=== PATIENT | male | born 1960 | race Caucasian/White ===

== ENCOUNTER 2021-07-20 20:18 | Emergency (ER) | payer OTHER, SELFPAY ==
--- NOTE | ~2021-07-20 | US_ITS ---
EXAMINATION: US SCROTUM CLINICAL INFORMATION: Right-sided pain. COMPARISON: None TECHNIQUE: A sonogram of the scrotum was performed assessing avilez-scale appearance and color Doppler flow. Spectral Doppler analysis of the arterial and venous flow were performed in the testes bilaterally. FINDINGS: RIGHT: Right testicle measures 3.8 x 3.0 x 3.7 cm, volume 21.8 mL. No focal testicular parenchymal lesions are visualized. Spectral Doppler analysis of the arterial and venous flow is increased in the right testis. Right epididymal head is normal in size. Small complicated hydrocele. No varicocele. Right epididymal Doppler flow is increased. LEFT: Left testicle measures 5.0 x 2.5 x 3.1 cm, volume 19.8 mL. No focal testicular parenchymal lesions are visualized. Spectral Doppler analysis of the arterial and venous flow is in the left testis. Left epididymal head is normal in size. Small simple hydrocele. No varicocele. Left epididymal Doppler flow is normal. US/US scrotum doppler IMPRESSION: * No evidence of testicular torsion. * Findings compatible with RIGHT epididymoorchitis. * Small bilateral hydroceles, with complicated appearance on the right.
--- NOTE | ~2021-07-20 | US_ITS ---
EXAMINATION: US SCROTUM CLINICAL INFORMATION: Right-sided pain. COMPARISON: None TECHNIQUE: A sonogram of the scrotum was performed assessing avilez-scale appearance and color Doppler flow. Spectral Doppler analysis of the arterial and venous flow were performed in the testes bilaterally. FINDINGS: RIGHT: Right testicle measures 3.8 x 3.0 x 3.7 cm, volume 21.8 mL. No focal testicular parenchymal lesions are visualized. Spectral Doppler analysis of the arterial and venous flow is increased in the right testis. Right epididymal head is normal in size. Small complicated hydrocele. No varicocele. Right epididymal Doppler flow is increased. LEFT: Left testicle measures 5.0 x 2.5 x 3.1 cm, volume 19.8 mL. No focal testicular parenchymal lesions are visualized. Spectral Doppler analysis of the arterial and venous flow is in the left testis. Left epididymal head is normal in size. Small simple hydrocele. No varicocele. Left epididymal Doppler flow is normal. US/US scrotum IMPRESSION: * No evidence of testicular torsion. * Findings compatible with RIGHT epididymoorchitis. * Small bilateral hydroceles, with complicated appearance on the right.
[2021-07-20 20:25] VITALS: BP 142/55; PULSE 112; RESP 20; TEMP 36; O2SAT 98; BMI 32.5
[2021-07-21 00:01] LABS: Basophils Percent Auto 0.3 % (0-2); Eosinophils Absolute Auto 0.1 X10*3/uL (0.0-0.4); Eosinophils Percent Auto 0.6 % (0-4); Hemoglobin 15.9 g/dl (14.0-18.0); Imm Gran Abs Auto 0.04 X10*3/uL (0.00-0.03); Imm Gran Pct Auto 0.3 % (0.0-0.4); Lymphocytes Absolute Auto 1.6 X10*3/uL (1.2-4.9); Lymphocytes Percent Auto 13.9 % (20-40); MANUAL DIFF FLAG NO; Mean Corpuscular HGB Conc 35.3 g/dl (31.0-36.0); Mean Corpuscular Hemoglobin 31.9 pg (27.0-33.0); Mean Corpuscular Volume 90.4 fL (80.0-98.0); Mean Platelet Volume 9.8 fL (9.4-12.4); Monocytes Absolute Auto 0.8 X10*3/uL (0.1-1.2); Monocytes Percent Auto 6.5 % (2-11); Neutrophils Percent Auto 78.4 % (45-73); Platelet Count 276 X10*3/uL (160-400); Red Blood Count 4.98 X10*6/uL (4.60-5.80); Red Cell Distribution Width 11.9 % (11.0-16.0); White Blood Count 11.5 X10*3/uL (4.8-10.8)
[2021-07-21 00:44] LABS: Alanine Aminotransferase 19 U/L (0-40); Albumin Level 4.1 g/dL (3.5-5.0); Alkaline Phosphatase 120 U/L (39-117); Anion Gap 18 (12-20); Aspartate Amino Transferase 29 U/L (5-37); Bilirubin Total 0.5 mg/dL (0.0-1.0); Blood Urea Nitrogen 15 mg/dL (9-16); Calcium 9.4 mg/dL (8.4-10.2); Carbon Dioxide 21 mmol/L (22-29); Chloride 98 mmol/L (96-108); Creatinine Clr Calc Pharmacy 92.7; Estimated Glomerular Filt Rate > 60; Glucose Random 431 mg/dL (60-115); Potassium 5.3 mmol/L (3.3-5.1); Sodium 132 mmol/L (135-145); Total Protein 7.8 g/dL (6.5-8.0)
[2021-07-21 01:04] VITALS: BP 127/65; PULSE 91; TEMP 37.2; O2SAT 93
--- NOTE | 2021-07-21 01:34 | ED_ITS ---
HPI - General Adult General Chief complaint: Abdominal Pain Stated complaint: Ankle pain Time Seen by Provider: 07/21/21 01:25 Source: patient Mode of arrival: ambulatory Limitations: no limitations History of Present Illness HPI narrative: Patient comes to emergency room complaining of left testicular pain that started approximately 3 weeks ago. Patient states that initially the pain was tolerable. However, over the last 3 days, the pain has been gradually increasing, today the pain is unbearable. Patient states that if he could he would rip his teste off to never deal with the pain again. Patient also co mplaining dysuria and hematuria. Related Data Previous Rx's Medication Instructions Recorded doxycycline hyclate 100 mg tablet 100 mg PO BID #19 tab 07/21/21 Allergies Allergy/AdvReac Type Severity Reaction Status Date / Time lisinopril [LISINOPRIL] Allergy Severe ANAPHYLAXIS Unverified 05/03/20 15:44 shrimp [SHRIMP] Allergy Severe ANAPHYLAXIS Unverified 05/03/20 15:44 MELON, HONEYDEW Allergy Severe ANAPHYLAXIS Uncoded 05/03/20 15:44 Review of Systems Review of Systems: Constitutional : No Weight loss, No Fever, No Chills, No Night Sweats, No Fatigue, No Malaise ENT/Mouth : No Hearing loss, No Ear Pain, No Nasal Congestion, No Sinus Pain, No Hoarseness, No sore throat, No Rhinorrhea, No Swallowing Difficulty Eyes: No Eye Pain, No Swelling, No Redness, No Foreign Body, No Discharge, No Vision Changes Cardiovascular : No Chest Pain, No SOB, No Dyspnea on Exertion, No Orthopnea, No Edema, No Palpitations Respiratory : No Cough, No Sputum, No Wheezing, No Smoke Exposure, No Dyspnea Gastrointestinal : No Nausea, No Vomiting, No Diarrhea, No Constipation, No abdominal Pain, No Hematochezia, No Melena Genitourinary : no irregular bleeding, patient complaining of dysuria, hematuria, patient complaining of significant pain in the right teste. Patient denies penile discharge Musculoskeletal : No joint pain, No Myalgias, No Joint Swelling Skin : No Skin Lesions, No rash Neuro : No Weakness, No Numbness, No Paresthesias, No Loss of Consciousness, No Dizziness, No Headache Psych : No Anxiety/Panic, No Depression, No SI/HI/AH/VH, No Social Issues, Heme/Lymph: No Bruising, No Bleeding,No Lymphadenopathy Endocrine : No Polyuria, No Polydipsia, No Temperature Intolerance [facility] Past Medical History Medical History (Updated 07/21/21 @ 02:51 by Arleth Guthrie MD) Diabetes mellitus type 2 in obese Social History Social History Advance Directives: No Advance Directives Information Provided: No Physical Exam Vital Signs: Vital Signs: Last Vital Signs Temp 99.3 F 07/21/21 02:00 Pulse 81 07/21/21 02:00 Resp 18 07/21/21 02:00 BP 135/52 L 07/21/21 02:00 Pulse Ox 95 07/21/21 02:00 BMI result Body Mass Index 32.5 Const: Other: Appearance: Alert. Oriented X3. Looks uncomfortable Eyes: Pupils equal, round and reactive to light. ENT: Pharynx normal. Neck: Normal inspection. Neck supple. No lymph nodes noted. No crepitus CVS: Normal heart rate and rhythm. Pulses normal. Normal S1 and S2 Respiratory: No respiratory distress. Breath sounds normal. No Wheezing. No rales Abdomen: Soft and nontender. No rigidity. No distention. : No penile discharge. Left testicle within normal limits, right testicle painful to palpation, looks swollen and erythematous. Skin: Skin warm and dry. Normal skin color. Normal skin turgor. Extremities: No lower extremity edema. No lower extremity edema. No Lacerations. No Rash Neuro: Oriented X 3. No motor deficit. No sensory deficit. Moving all extermities. No slurred speech. Course Course Course Narrative: I discussed the results with the patient, patient has epididymo-orchitis. Patient denies insertive anal intercourse practice. However, patient states that he is not sure if he has an STD. Chlamydia and gonorrhea labs pending patient patient will be treated empirically with ceftriaxone and doxycycline p.o. Patient's pain improved with Toradol. Was given 1 dose IV. Patient's blood glucose 246 Medical Decision Making Lab Data Result diagrams: 07/20/21 23:56 07/20/21 23:56 Labs: Lab Results 07/20/21 07/20/21 07/21/21 Range/Units 23:56 23:56 02:32 WBC 11.5 H (4.8-10.8) X10*3/uL RBC 4.98 (4.60-5.80) X10*6/uL Hgb 15.9 (14.0-18.0) g/dl Hct 45.0 (42.0-52.0) % MCV 90.4 (80.0-98.0) fL MCH 31.9 (27.0-33.0) pg MCHC 35.3 (31.0-36.0) g/dl RDW 11.9 (11.0-16.0) % Plt Count 276 (160-400) X10*3/uL MPV 9.8 (9.4-12.4) fL Immature Gran % (Auto) 0.3 (0.0-0.4) % Neut % (Auto) 78.4 H (45-73) % Lymph % (Auto) 13.9 L (20-40) % [place] % (Auto) 6.5 (2-11) % Eos % (Auto) 0.6 (0-4) % Baso % (Auto) 0.3 (0-2) % Lymph # (Auto) 1.6 (1.2-4.9) X10*3/uL [place] # (Auto) 0.8 (0.1-1.2) X10*3/uL Eos # (Auto) 0.1 (0.0-0.4) X10*3/uL Baso # (Auto) 0.0 (0.0-0.2) X10*3/uL Abs Immat Gran (auto) 0.04 H (0.00-0.03) X10*3/uL Absolute Neuts (auto) 9.0 H (2.0-8.3) x10*3/uL Absolute Nucleated RBC 0.000 (0.0-0.012) X10*3/uL Nucleated RBC % (auto) 0.0 (0.0-0.2) /100WBC Sodium 132 L (135-145) mmol/L Potassium 5.3 H (3.3-5.1) mmol/L Chloride 98 (96-108) mmol/L Carbon Dioxide 21 L (22-29) mmol/L Anion Gap 18 (12-20) BUN 15 (9-16) mg/dL Creatinine 1.00 (0.5-1.4) mg/dL Estim Creat Clear Calc 92.7 Estimated GFR > 60 POC Glucose (60-115) mg/dL Random Glucose 431 H* (60-115) mg/dL Calcium 9.4 (8.4-10.2) mg/dL Total Bilirubin 0.5 (0.0-1.0) mg/dL AST 29 (5-37) U/L ALT 19 (0-40) U/L Alkaline Phosphatase 120 H (39-117) U/L Total Protein 7.8 (6.5-8.0) g/dL Albumin 4.1 (3.5-5.0) g/dL Urine Color YELLOW Urine Appearance CLEAR Urine pH 6.0 (5.0-8.0) Ur Specific [place] 1.010 (1.005-1.025) Urine Protein NEG (NEG-TRACE) MG/DL Urine Glucose (UA) >=1000 H (NEG) MG/DL Urine Ketones 15 (NEG) MG/DL Urine Blood NEG (NEG) Urine Nitrite NEG (NEG) Ur Leukocyte Esterase NEG (NEG) Urine RBC 0 (0) /HPF Urine WBC 0 (0-4) /HPF Ur Squamous Epith Cells NONE /LPF Tyrosine Crystals TRACE /LPF Urine Bacteria TRACE /LPF Acetone, Qual Negative (Negative) 07/21/21 Range/Units 04:02 WBC (4.8-10.8) X10*3/uL RBC (4.60-5.80) X10*6/uL Hgb (14.0-18.0) g/dl Hct (42.0-52.0) % MCV (80.0-98.0) fL MCH (27.0-33.0) pg MCHC (31.0-36.0) g/dl RDW (11.0-16.0) % Plt Count (160-400) X10*3/uL MPV (9.4-12.4) fL Immature Gran % (Auto) (0.0-0.4) % Neut % (Auto) (45-73) % Lymph % (Auto) (20-40) % [place] % (Auto) (2-11) % Eos % (Auto) (0-4) % Baso % (Auto) (0-2) % Lymph # (Auto) (1.2-4.9) X10*3/uL [place] # (Auto) (0.1-1.2) X10*3/uL Eos # (Auto) (0.0-0.4) X10*3/uL Baso # (Auto) (0.0-0.2) X10*3/uL Abs Immat Gran (auto) (0.00-0.03) X10*3/uL Absolute Neuts (auto) (2.0-8.3) x10*3/uL Absolute Nucleated RBC (0.0-0.012) X10*3/uL Nucleated RBC % (auto) (0.0-0.2) /100WBC Sodium (135-145) mmol/L Potassium (3.3-5.1) mmol/L Chloride (96-108) mmol/L Carbon Dioxide (22-29) mmol/L Anion Gap (12-20) BUN (9-16) mg/dL Creatinine (0.5-1.4) mg/dL Estim Creat Clear Calc Estimated GFR POC Glucose 246 H (60-115) mg/dL Random Glucose (60-115) mg/dL Calcium (8.4-10.2) mg/dL Total Bilirubin (0.0-1.0) mg/dL AST (5-37) U/L ALT (0-40) U/L Alkaline Phosphatase (39-117) U/L Total Protein (6.5-8.0) g/dL Albumin (3.5-5.0) g/dL Urine Color Urine Appearance Urine pH (5.0-8.0) Ur Specific [place] (1.005-1.025) Urine Protein (NEG-TRACE) MG/DL Urine Glucose (UA) (NEG) MG/DL Urine Ketones (NEG) MG/DL Urine Blood (NEG) Urine Nitrite (NEG) Ur Leukocyte Esterase (NEG) Urine RBC (0) /HPF Urine WBC (0-4) /HPF Ur Squamous Epith Cells /LPF Tyrosine Crystals /LPF Urine Bacteria /LPF Acetone, Qual (Negative) Imaging Data Scrotum ultrasound: Radiologist's impression: RIGHT: Right testicle measures 3.8 x 3.0 x 3.7 cm, volume 21.8 mL. No focal testicular parenchymal lesions are visualized. Spectral Doppler analysis of the arterial and venous flow is increased in the right testis. Right epididymal head is normal in size. Small complicated hydrocele. No varicocele. Right epididymal Doppler flow is increased. LEFT: Left testicle measures 5.0 x 2.5 x 3.1 cm, volume 19.8 mL. No focal testicular parenchymal lesions are visualized. Spectral Doppler analysis of the arterial and venous flow is in the left testis. Left epididymal head is normal in size. Small simple hydrocele. No varicocele. Left epididymal Doppler flow is normal. US/US scrotum doppler IMPRESSION: *? No evidence of testicular torsion. *? Findings compatible with RIGHT epididymoorchitis. *? Small bilateral hydroceles, with complicated appearance on the right. Discharge Plan Discharge Clinical Impression: Acute epididymo-orchitis, Acute hyperglycemia Patient Disposition: Home, Self-Care Instructions: Epididymo-Orchitis (ED), Diabetic Hyperglycemia (ED) Additional Instructions: Please increase your Lantus by 2 units at bedtime. Also increase your Humalog by 1 unit at mealtimes. Please follow-up with your primary care physician tomorrow. If you have any worsening or new symptoms, please return to the emergency room or call 911 Prescriptions: New doxycycline hyclate 100 mg tablet 100 mg PO BID Qty: 19 RF: 0
[2021-07-21 01:38] LABS: Acetone, serum QL Negative (Negative)
[2021-07-21 02:00] VITALS: BP 135/52; PULSE 81; RESP 18; TEMP 37.4; O2SAT 95
[2021-07-21 02:38] LABS: Appearance Urine CLEAR; Color Urine YELLOW; Glucose Urine UA >=1000 MG/DL (NEG); Leukocyte Esterase Urine NEG (NEG); Nitrite Urine NEG (NEG); Urine Blood NEG (NEG); Urine Ketones 15 MG/DL (NEG); Urine Protein NEG (NEG-TRACE)
[2021-07-21] MEDS: 0.9 % Sodium Chloride 1,000 ML 999 ML IVCONT (02:39)
[2021-07-21] MEDS: Ketorolac Tromethamine 30 MG/ML VIAL IVPUSH (02:40)
[2021-07-21] MEDS: Insulin Regular, Human 100 UNIT/ML 3 ML VIAL 10 UNIT IVPUSH (02:40)
[2021-07-21 03:00] LABS: Tyrosine Crystal Urine TRACE /LPF
[2021-07-21 03:01] LABS: Bacteria Urine TRACE /LPF; RBC Urine 0 /HPF (0); WBC Urine 0 /HPF (0-4)
[2021-07-21 04:08] LABS: Glucose, Whole Blood 246 mg/dL (60-115)
[2021-07-22 05:06] LABS: CT PCR NOT DETECTED (Not Detect.); NG PCR NOT DETECTED (Not Detect.)
== END 2021-07-21 05:56 | disposition home or self-care (01) ==
PROVIDERS: Emergency Provider Emergency Medicine; PCP Family Medicine
DX: N45.3 Epididymo-orchitis (principal); E11.65 Type 2 diabetes mellitus with hyperglycemia; N50.811 Right testicular pain; Z79.4 Long term (current) use of insulin
CPT/HCPCS: 36415; 76870; 80053; 81001; 82009; 82947; 85025; 87491; 87591; 93975; 96361; 96365; 96375; 99284; J0696; J1885

== ENCOUNTER 2023-02-20 14:06 | Outpatient (REF) | payer OTHER, SELFPAY | END 2023-02-20 14:07 | disposition home or self-care (01) | LOC: HO.HHCX 14:06 | PROVIDERS: Visit Provider Emergency Medicine | DX: M79.672 Pain in left foot (principal) | CPT/HCPCS: 73630 ==

== ENCOUNTER 2023-03-05 11:39 | Outpatient (REF) | payer OTHER, SELFPAY ==
[2023-03-05 14:22] LABS: Estimated Average Glucose 217 mg/dL; Hemoglobin A1c % 9.2 %
== END 2023-03-05 11:40 | disposition home or self-care (01) ==
LOC: HO.HHCL 11:39
PROVIDERS: Visit Provider Family Medicine
DX: E11.65 Type 2 diabetes mellitus with hyperglycemia (principal); Z79.4 Long term (current) use of insulin
CPT/HCPCS: 36415; 83036

== ENCOUNTER 2023-06-29 12:09 | Outpatient (AMB) | payer OTHER, SELFPAY ==
--- NOTE | 2023-06-29 12:43 | MHC.OFFVIS ---
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 Patient states I have apnea and I have a 12 year old machine. Allergies lisinopril [LISINOPRIL] Allergy (Severe, Unverified 06/29/23 12:54) ANAPHYLAXIS shrimp [SHRIMP] Allergy (Severe, Unverified 06/29/23 12:54) ANAPHYLAXIS MELON, HONEYDEW Allergy (Severe, Uncoded 06/29/23 12:54) ANAPHYLAXIS HPI HPI Comments History of Present Illness Details 63 y/o male patient with ELAINE, HTN, HLD and T2DM presents for new in-person visit to manage ELAINE. Pt reports he was diagnosed with ELAINE in 2002 and has been using CPAP. He had gastric bypass surgery done in 2007 and lost 110 lb, and had a repeat sleep study in 2007. Pt still had ELAINE and continued to use CPAP. Pt's current CPAP is more than 12 years old, but the cable is almost broken and the power keeps turning off. Pt reports loud snoring, non refreshing sleep and excessive daytime sleepiness. He can fall asleep anywhere and anytime. He feels exhausted all day. Sleep questionnaire: Have you ever been diagnosed with a sleep disorder? Yes, ELAINE in 2002. Have you ever had a sleep study in the past? Yes, in 2002 and 2007. Have you ever been treated for a sleep disorder? Yes, CPAP. Do you take medications for a sleep disorder? Trazodone 100 mg Do you snore? Yes. Do you wake up gasping at night? Yes. Do you have episodes of apneas? Yes. If yes, are they witnessed? Yes. Do you have episodes of nocturnal chest pain or dyspnea? Yes. Do you have difficulty initiating sleep? Yes. Do you have difficulty maintaining sleep? Yes, Do you wake up tired? Yes. Do you have headaches upon awakening? Yes. Do you wake up with dry mouth or throat? Yes. Do you have GERD? Yes, sometimes. Do you have nocturia? Yes. Do you have nocturnal leg cramps? Yes. Do you have symptoms of restless legs? Yes. Do you act out your dreams? No. Sleep hygiene questionnaire: What is your usual sleep routine? Usual bedtime is at 9 pm; Usual wake up time is at 2:30 to 4 am.. Do you take naps? 15-20 min a day. Is your sleep environment cool, dark, and quiet? Yes. Do you exercise? Yes, walking. Do you take caffeine or other stimulants? Coffee in the morning. Do you use electronics in bed? No. What is your work schedule? N/A. Hypersomnolence questionnaire: Do you have daytime tiredness or fatigue? Yes. Do you easily fall asleep when inactive? Yes. Have you ever had episodes of sudden weakness? No. Have you ever had episodes of sudden weakness associated with strong emotions? No. PFSH Medical History (Updated 06/29/23 @ 14:48 by Riley Jeter CNP) Diabetes mellitus type 2 in obese Surgical History (Updated 06/29/23 @ 12:57 by CRYSTAL Morris) H/O gastric sleeve Family History Father Coronary artery disease Hypertension Mother Diabetes mellitus Cancer Social History (Updated 06/29/23 @ 12:58 by CRYSTAL Morris) Alcohol intake: current Patient Tobacco Use Status: Never used Tobacco Review of Systems Const All systems reviewed & are unremarkable except as noted in HPI and below ENT Reports Normal hearing present Neuro Reports Normal hearing present Physical Exam Vital Signs: Last Vital Signs BP 128/70 06/29/23 12:52 BMI result Body Mass Index 33.5 Const General: cooperative Nutritional Appearance: obese Orientation/consciousness: patient oriented x3 Neck Neck: Yes full ROM and Yes supple Resp Effort & Inspection: normal respiratory effort and able to speak in complete sentences Neuro General: patient oriented x3, gait normal and moves all extremities Cranial nerves: Yes Bilaterally intact EOM present, Yes Normal facial strength present, Yes Midline tongue present, Yes Normal hearing present, Yes Ability to bilaterally rotate head present and Yes Ability to bilaterally elevate shoulders present Cognition (Neuro): normal cognition Gait exam (Neuro): Normal gait present Motor exam (neuro): 5/5 motor strength present throughout, Pronator motor function not present and no tremor noted Psych Appearance: grossly normal Mental Status: mental status grossly normal Speech and movement: Normal speech and movement present Affect: normal affect Attitude: cooperative Assessment & Plan Assessment & Plan (1) Restless legs syndrome: Code(s): G25.81 - Restless legs syndrome (2) Obese: Code(s): E66.9 - Obesity, unspecified (3) ELAINE on CPAP: Code(s): G47.33 - Obstructive sleep apnea (adult) (pediatric) (4) Daytime sleepiness: Code(s): R40.0 - Somnolence Plan Pt is advised to undergo in lab sleep study to assess for sleep apnea. Will f/u with pt after study to discuss results and appropriate treatment options. Sleep hygiene education provided. Advised patient to try magnesium 400 mg qHS. Pt to call with any worsening concerns or questions. Orders: Orders RT PSG in-lab sleep study Today E11.69 - Type 2 diabetes mellitus with other specified complication, E66.9 - Obesity, unspecified, G25.81 - Restless legs syndrome, I10 - Essential (primary) hypertension Medications: New magnesium oxide 400 mg PO DAILY 30 days 30 tabs 1RF Coding Level of Care Code New Pt Level 3 (94685) Diagnoses Restless legs syndrome G25.81 Obese E66.9 ELAINE on CPAP G47.33 Daytime sleepiness R40.0
[2023-06-29 12:52] VITALS: BP 128/70; BMI 33.5
== END 2023-06-29 13:23 | disposition home or self-care (01) ==
PROVIDERS: PCP Family Medicine; Visit Provider Nurse Practitioner Family
DX: G25.81 Restless legs syndrome (principal); E66.9 Obesity, unspecified; G47.33 Obstructive sleep apnea (adult) (pediatric); R40.0 Somnolence
CPT/HCPCS: 99203

== ENCOUNTER → 2023-06-29 12:09 | Outpatient (BNVA) | payer OTHER, SELFPAY | PROVIDERS: PCP Family Medicine; Visit Provider Nurse Practitioner Family | DX: G47.33 Obstructive sleep apnea (adult) (pediatric) (principal); G25.81 Restless legs syndrome; E66.9 Obesity, unspecified; R40.0 Somnolence; Z68.33 Body mass index [BMI] 33.0-33.9, adult | CPT/HCPCS: 99202 ==

== ENCOUNTER → 2023-07-20 20:30 | Outpatient (REF) | payer OTHER, SELFPAY | LOC: HO.SL 20:30 | PROVIDERS: PCP Family Medicine; Visit Provider Nurse Practitioner Family | DX: G25.81 Restless legs syndrome (principal); E66.9 Obesity, unspecified; R06.83 Snoring | CPT/HCPCS: 95810 ==

== ENCOUNTER → 2023-07-20 22:13 | Outpatient (BNV) | payer OTHER, SELFPAY | PROVIDERS: PCP Family Medicine; Visit Provider Psychiatry & Neurology Neurology | DX: R06.83 Snoring (principal) | CPT/HCPCS: 95810 ==

== ENCOUNTER 2023-07-23 09:59 | Outpatient (AMB) | payer OTHER, SELFPAY ==
--- NOTE | 2023-07-23 10:11 | MHC.OFFVIS ---
Intake Vital Signs 07/23/23 10:43 Height 5 ft 9 in Weight 224 lb 13.944 oz BMI 33.2 BP 120/66 Blood Pressure Location Lt brachial Position Sitting Pulse 80 Intake Visit Reasons: Colonoscopy 10yr Intake Note: This patient presents for a ten year recall colonoscopy screening. Patient c/o; reports no rectal bleeding, pain or discomfort. Administrative Intern Required: Yes Administrative Intern Language: Shredder Tender Name: [place] Information Interpreted: non-clinical & clinical Accompanied by: Self / Same As Patient Allergies lisinopril [LISINOPRIL] Allergy (Severe, Unverified 07/23/23 10:39) ANAPHYLAXIS shrimp [SHRIMP] Allergy (Severe, Unverified 07/23/23 10:39) ANAPHYLAXIS MELON, HONEYDEW Allergy (Severe, Uncoded 07/23/23 10:39) ANAPHYLAXIS Medication List - Last Reconciled 07/23/23 by Lucas Wolfe MD aspirin 81 mg PO DAILY atorvastatin 40 mg PO BEDTIME bupropion HCl 150 mg PO DAILY doxycycline hyclate 100 mg PO BID gabapentin 300 mg PO TID insulin aspart U-100 (Novolog FlexPen U-100 Insulin aspart) subcut insulin degludec (Tresiba FlexTouch U-100 insulin) units subcut lisinopril 2.5 mg PO DAILY magnesium oxide 400 mg PO DAILY 30 days mecobalamin (vitamin B12) 1,000 mcg PO DAILY mirtazapine 15 mg PO BEDTIME quetiapine (Seroquel) 100 mg PO BEDTIME sertraline 100 mg PO DAILY trazodone 100 mg PO BEDTIME HPI Colonoscopy 10yr HPI Details 63-year-old male referred for a screening colonoscopy. His last colonoscopy was in 2011. There was note of a small tubular adenoma removed at that time. A biopsy of an abnormal looking mucosa was unremarkable as well He denies GI complaints at this time. He denies a family history of colon cancer. [facility] Medical History (Updated 07/23/23 @ 10:53 by Lucas Wolfe MD) Colon cancer screening Diabetes mellitus type 2 in obese Surgical History H/O gastric sleeve Family History Father Coronary artery disease Hypertension Mother Diabetes mellitus Cancer Family/Other Prostate cancer Social History Alcohol intake: current Patient Tobacco Use Status: Never used Tobacco Review of Systems Const Denies chills and Denies fever(s) Card Denies chest pain, Denies dyspnea and Denies dyspnea on exertion Resp Denies cough, Denies dyspnea and Denies dyspnea on exertion GI Denies hematochezia and Denies change in bowel habits Denies hematuria and Denies difficulty urinating Musc Denies back pain and Denies limited range of motion Neuro Denies focal weakness and Denies convulsions Psych Denies depression and Denies mood swings Physical Exam Vital Signs: Last Vital Signs Pulse 80 07/23/23 10:43 BP 120/66 07/23/23 10:43 BMI result Body Mass Index 33.2 Const General: comfortable and no acute distress Orientation/consciousness: patient oriented x3 Neck Neck: Yes no lymphadenopathy Resp Auscultation: clear to auscultation bilaterally Cardio Rhythm: regular rhythm GI Palpation (GI): Soft to palpation, nontender and no guarding Neuro General: patient oriented x3 Assessment & Plan Assessment & Plan (1) Colon cancer screening: Code(s): Z12.11 - Encounter for screening for malignant neoplasm of colon Plan: I explained to him the technique of colonoscopy for screening. I reviewed the risks including but not limited to bleeding and perforation, as well as the benefits and alternatives. He understands and wants to proceed. Coding Level of Care Code New Pt Level 3 (70345) Diagnoses Colon cancer screening Z12.11
[2023-07-23 10:43] VITALS: BP 120/66; PULSE 80; BMI 33.2
== END 2023-07-23 10:58 | disposition home or self-care (01) ==
PROVIDERS: PCP Family Medicine; Referring Provider Family Medicine; Visit Provider Surgery
DX: Z12.11 Encounter for screening for malignant neoplasm of colon (principal)
CPT/HCPCS: 99203

== ENCOUNTER → 2023-07-23 09:59 | Outpatient (BNVA) | payer OTHER, SELFPAY | PROVIDERS: PCP Family Medicine; Referring Provider Family Medicine; Visit Provider Surgery | DX: Z12.11 Encounter for screening for malignant neoplasm of colon (principal) | CPT/HCPCS: 99202 ==

== ENCOUNTER 2023-08-28 06:53 | Day surgery (SDC) | payer OTHER, SELFPAY ==
[2023-08-25 10:50] VITALS: BMI 33.4
--- NOTE | 2023-08-26 14:06 | HO.ANESPROP2 ---
Documented by User: Gisele Pleitez NP 08/26/23 14:06 HPI - Anesthesia Eval Consult details Narrative: 63yo M for Colonoscopy with Poss Polypectomy PMFSH Active Problems Active Problems: All Active Problems (Updated 07/23/23 @ 10:53 by Lucas Wolfe MD) Colon cancer screening (Acute) Daytime sleepiness (Acute) ELAINE on CPAP (Acute) Restless legs syndrome (Acute) Obese (Acute) Diabetes mellitus type 2 in obese (Acute) Past Medical History Medical History (Updated 07/23/23 @ 10:53 by Lucas Wolfe MD) Colon cancer screening Diabetes mellitus type 2 in obese Family History Family History Father Coronary artery disease Hypertension Mother Diabetes mellitus Cancer Family/Other Prostate cancer Surgical History Surgical History H/O gastric sleeve Social History Social History Alcohol intake: current Patient Tobacco Use Status: Never used Tobacco Use of substances other than those prescribed or required for medical reasons: No Are you DNR?: No Advance Directives: No Advance Directives Information Provided: Yes Meds Allergies Allergy/AdvReac Type Severity Reaction Status Date / Time lisinopril [LISINOPRIL] Allergy Severe ANAPHYLAXIS Verified 08/28/23 07:05 shrimp [SHRIMP] Allergy Severe ANAPHYLAXIS Verified 08/28/23 07:05 metformin Allergy Diarrhea Verified 08/28/23 07:05 rosiglitazone Allergy Diarrhea Verified 08/28/23 07:05 MELON, HONEYDEW Allergy Severe ANAPHYLAXIS Uncoded 08/28/23 07:05 Home Medications Medication Instructions Recorded Confirmed Last Taken Type aspirin 81 mg tablet,delayed 81 mg PO DAILY 06/29/23 08/28/23 08/27/23 History release atorvastatin 40 mg tablet 40 mg PO BEDTIME 06/29/23 08/28/23 08/27/23 History mecobalamin (vitamin B12) 1,000 1,000 mcg PO DAILY 06/29/23 08/28/23 08/27/23 History mcg lozenges sertraline 100 mg tablet 100 mg PO DAILY 06/29/23 08/28/23 08/27/23 History bupropion HCl 150 mg 24 hr tablet, 150 mg PO DAILY 07/23/23 08/28/23 08/27/23 History extended release gabapentin 300 mg capsule 300 mg PO TID 07/23/23 08/28/23 Unknown History insulin aspart U-100 100 unit/mL subcut 07/23/23 07/23/23 Unknown History (3 mL) subcutaneous pen (Novolog FlexPen U-100 Insulin aspart) insulin degludec 100 unit/mL (3 unit subcut 07/23/23 07/23/23 Unknown History mL) subcutaneous pen (Tresiba FlexTouch U-100 insulin) mirtazapine 15 mg tablet 15 mg PO BEDTIME 07/23/23 08/28/23 08/27/23 History cholecalciferol (vitamin D3) 25 25 mcg PO DAILY 08/28/23 08/28/23 08/27/23 History mcg (1,000 unit) tablet dapagliflozin propanediol 10 mg 10 mg PO DAILY 08/28/23 08/28/23 08/27/23 History tablet (Farxiga) Exam Height,Weight and Vital Signs: Height 5 ft 9 in Weight 102.512 kg Assessment and Plan Assessment Anesthesia Assessment: Chart Reviewed Documented by User: Pamela Mcdowell MD 08/28/23 07:43 PMFSH Past Medical History Medical History (Updated 07/23/23 @ 10:53 by Lucas Wolfe MD) Colon cancer screening Diabetes mellitus type 2 in obese Family History Family History Father Coronary artery disease Hypertension Mother Diabetes mellitus Cancer Family/Other Prostate cancer Surgical History Surgical History H/O gastric sleeve History of Problems with Anesthesia: No Social History Social History Alcohol intake: current Patient Tobacco Use Status: Never used Tobacco Use of substances other than those prescribed or required for medical reasons: No Are you DNR?: No Advance Directives: No Advance Directives Information Provided: Yes Meds Allergies Allergy/AdvReac Type Severity Reaction Status Date / Time lisinopril [LISINOPRIL] Allergy Severe ANAPHYLAXIS Verified 08/28/23 07:05 shrimp [SHRIMP] Allergy Severe ANAPHYLAXIS Verified 08/28/23 07:05 metformin Allergy Diarrhea Verified 08/28/23 07:05 rosiglitazone Allergy Diarrhea Verified 08/28/23 07:05 MELON, HONEYDEW Allergy Severe ANAPHYLAXIS Uncoded 08/28/23 07:05 Home Medications Medication Instructions Recorded Confirmed Last Taken Type aspirin 81 mg tablet,delayed 81 mg PO DAILY 06/29/23 08/28/23 08/27/23 History release atorvastatin 40 mg tablet 40 mg PO BEDTIME 06/29/23 08/28/23 08/27/23 History mecobalamin (vitamin B12) 1,000 1,000 mcg PO DAILY 06/29/23 08/28/23 08/27/23 History mcg lozenges sertraline 100 mg tablet 100 mg PO DAILY 06/29/23 08/28/23 08/27/23 History bupropion HCl 150 mg 24 hr tablet, 150 mg PO DAILY 07/23/23 08/28/23 08/27/23 History extended release gabapentin 300 mg capsule 300 mg PO TID 07/23/23 08/28/23 Unknown History insulin aspart U-100 100 unit/mL subcut 07/23/23 07/23/23 Unknown History (3 mL) subcutaneous pen (Novolog FlexPen U-100 Insulin aspart) insulin degludec 100 unit/mL (3 unit subcut 07/23/23 07/23/23 Unknown History mL) subcutaneous pen (Tresiba FlexTouch U-100 insulin) mirtazapine 15 mg tablet 15 mg PO BEDTIME 07/23/23 08/28/23 08/27/23 History cholecalciferol (vitamin D3) 25 25 mcg PO DAILY 08/28/23 08/28/23 08/27/23 History mcg (1,000 unit) tablet dapagliflozin propanediol 10 mg 10 mg PO DAILY 08/28/23 08/28/23 08/27/23 History tablet (Farxiga) Exam Airway Mallampati Class: III TM Dist: >3cm Neck ROM: Full Partial: Upper and Lower Loose/Missing/Broken Teeth: Yes, Upper and Lower Heart: RRR Lungs: CTA Assessment and Plan Assessment Anesthesia Assessment: Anesthesia Plan Discussed Final Anesthetic Review History of Problems with Anesthesia: No NPO: Yes ASA Class: III Final Preanesthetic Review: Meds/Allgs Chart Reviewed, Consent Obtained/Reviewed and Anes Risks/Benef Reviewed Patient Risk: Intermediate Procedure Risk: Low Anesthetic Plan Anesthetic Plan: MAC: Disposition: Standard PACU
[2023-08-28 07:02] VITALS: BMI 32.8
[2023-08-28 07:21] VITALS: BP 152/89; PULSE 75; RESP 16; TEMP 35.8; O2SAT 96
[2023-08-28] MEDS: Lactated Ringers 1,000 ML 100 ML IVCONT (07:23)
--- NOTE | 2023-08-28 07:29 | P.HPSUR_ITS ---
Pre-Procedural Eval Section A Date of Service: 08/28/23 Section B Chief Complaint: screening Details of Present Illness: due for screening colonoscopy; no GI complaints Relevant Social History: None Present Medications: see Short Stay Collaborative assessment Medical History: Significant History (ELAINE, DM obesity) Allergies: Allergies Allergy/AdvReac Type Severity Reaction Status Date / Time lisinopril [LISINOPRIL] Allergy Severe ANAPHYLAXIS Verified 08/28/23 07:05 shrimp [SHRIMP] Allergy Severe ANAPHYLAXIS Verified 08/28/23 07:05 metformin Allergy Diarrhea Verified 08/28/23 07:05 rosiglitazone Allergy Diarrhea Verified 08/28/23 07:05 MELON, HONEYDEW Allergy Severe ANAPHYLAXIS Uncoded 08/28/23 07:05 Review of Systems Sugical H&P ROS: Negative: Constitution, Cardiovascular, Respiratory, Neurological, Psychiatric, Hem-Onc, Allergic/Immunologic, Gastrointestinal, Gen itourinary, Musculoskeletal, Integumentary, Endocrine and Eyes/Ears/Nose/Throat Exam Surgical H&P Exam: Normal: HEENT, Normal: Heart, Normal: Lungs, Normal: Extremities, Normal: Abdomen, Normal: Skin and Normal: Neurological Plan Diagnosis/Plan: Unchanged I have reviewed the history and physical and performed a pertinent physical examination on my patient. No changes have occurred unless specified. Time Spent With Patient Time: Total time managing care of this patient today ____ minutes.
[2023-08-28 07:35] LABS: Glucose, Whole Blood 144 mg/dL (60-115)
--- NOTE | 2023-08-28 08:12 | W.PM.OPN ---
Operative Note Operative Note Date of Service: 08/28/23 Narrative: Preop Diagnosis: colon cancer screening Postop diagnosis: Sub optimal bowel prep, otherwise normal findings Procedure: Colonoscopy Surgeon: Lucas Wolfe MD The patient is a 63-year-old male here before regular screening colonoscopy. He understood the technique of the procedure as well as the risks, benefits, and alternatives. he had given consent The patient was brought to the operating room and placed in left lateral decubitus position under monitored anesthesia care. A surgical time-out was done. A full digital rectal exam was done and this did not reveal any significant anal lesions. The tip of the Olympus colonoscope was gently introduced through the anal orifice advanced with insufflation all the way to the cecum. The cecum was intubated. The cecum was identified by visualization of the ileocecal valve as well as the appendiceal orifice. The cecal mucosa was unremarkable. The scope was gradually withdrawn with careful examination of the entire colonic mucosa being done with scope withdrawal. The patient had suboptimal bowel prep with note pulls of thin water stool on multiple segments of the colon. I had to do a lot of irrigation and suctioning to see the mucosa. Despite the suboptimal bowel prep, it was unlikely that any large lesion may have been missed. The rectum was reached and there were no lesions seen. The anal canal was unremarkable. The scope was then withdrawn completely with desufflation . The patient tolerated procedure well. There were no immediate complications. In view of the suboptimal bowel prep, I would recommend a repeat colonoscopy in 5 years.
[2023-08-28 08:15] VITALS: BP 105/54; PULSE 73; RESP 18; TEMP 36.7; O2SAT 98
[2023-08-28 08:30] VITALS: BP 114/67; PULSE 77; RESP 18; TEMP 36.7; O2SAT 96
== END 2023-08-28 09:30 | disposition home or self-care (01) ==
PROVIDERS: PCP Family Medicine; Visit Provider Surgery
PROC: 0DBE8ZZ Excision of Large Intestine, Via Natural or Artificial Opening Endoscopic (ICD-10-PCS; CPT G0105; principal; 2023-08-28 08:30)
DX: Z12.11 Encounter for screening for malignant neoplasm of colon (principal); Z86.010 Personal history of colon polyps; E11.9 Type 2 diabetes mellitus without complications; Z79.4 Long term (current) use of insulin; E66.9 Obesity, unspecified; Z68.33 Body mass index [BMI] 33.0-33.9, adult; Z79.82 Long term (current) use of aspirin; Z79.899 Other long term (current) drug therapy; Z88.8 Allergy status to other drugs, medicaments and biological substances; Z98.84 Bariatric surgery status
CPT/HCPCS: G0105; 82947; J2704

== ENCOUNTER → 2023-08-28 06:53 | Outpatient (BNV) | payer OTHER, SELFPAY | PROVIDERS: PCP Family Medicine; Visit Provider Surgery | DX: Z12.11 Encounter for screening for malignant neoplasm of colon (principal) | CPT/HCPCS: G0121 ==

== ENCOUNTER 2023-09-10 09:46 | Outpatient (AMB) | payer OTHER, SELFPAY ==
--- NOTE | 2023-09-10 09:48 | A.OFFVIS_ITS ---
Intake Intake Visit Reasons: S/P colonoscopy Intake Note: This patient presents for a follow-up assessment status post colonoscopy. Patient c/o; reports no complaints at this time. Alternative Education Teacher Required: No Accompanied by: Self / Same As Patient Allergies lisinopril [LISINOPRIL] Allergy (Severe, Verified 09/10/23 09:54) ANAPHYLAXIS shrimp [SHRIMP] Allergy (Severe, Verified 09/10/23 09:54) ANAPHYLAXIS metformin Allergy (Verified 09/10/23 09:54) Diarrhea rosiglitazone Allergy (Verified 09/10/23 09:54) Diarrhea MELON, HONEYDEW Allergy (Severe, Uncoded 09/10/23 09:54) ANAPHYLAXIS Medication List - Last Reconciled 09/10/23 by Lucas Wolfe MD aspirin 81 mg PO DAILY atorvastatin 40 mg PO BEDTIME bupropion HCl 150 mg PO DAILY cholecalciferol (vitamin D3) 25 mcg PO DAILY dapagliflozin propanediol (Farxiga) 10 mg PO DAILY doxycycline hyclate 100 mg PO BID gabapentin 300 mg PO TID insulin aspart U-100 (Novolog FlexPen U-100 Insulin aspart) subcut insulin degludec (Tresiba FlexTouch U-100 insulin) units subcut magnesium oxide 400 mg PO DAILY 30 days mecobalamin (vitamin B12) 1,000 mcg PO DAILY mirtazapine 15 mg PO BEDTIME sertraline 100 mg PO DAILY HPI S/P colonoscopy HPI Details He underwent colonoscopy for screening last 08/28/2022. He tolerated procedure well. He denies any significant complaints at this time. [facility] Medical History Colon cancer screening Diabetes mellitus type 2 in obese Surgical History H/O gastric sleeve Family History Father Coronary artery disease Hypertension Mother Diabetes mellitus Cancer Family/Other Prostate cancer Social History Alcohol intake: current Patient Tobacco Use Status: Never used Tobacco Review of Systems Const Denies chills and Denies fever(s) Card Denies chest pain, Denies dyspnea and Denies dyspnea on exertion Resp Denies cough, Denies dyspnea and Denies dyspnea on exertion GI Denies hematochezia and Denies change in bowel habits Denies hematuria and Denies difficulty urinating Musc Denies back pain and Denies limited range of motion Neuro Denies focal weakness and Denies convulsions Psych Denies depression and Denies mood swings Physical Exam Const General: comfortable and no acute distress Resp Effort & Inspection: normal respiratory effort GI Palpation (GI): Soft to palpation, not firm and nontender Assessment & Plan Assessment & Plan (1) Colon cancer screening: Code(s): Z12.11 - Encounter for screening for malignant neoplasm of colon Plan: Status post colonoscopy. I did not see any polyps or any lesions. However, his bowel prep was not optimal. I have recommended repeating colonoscopy in 5 years instead of 10. I emphasized this to him and he says he understands. Coding Level of Care Code Est Pt Level 2 (57710) Diagnoses Colon cancer screening Z12.11
== END 2023-09-10 10:18 | disposition home or self-care (01) ==
PROVIDERS: PCP Family Medicine; Visit Provider Surgery
DX: Z12.11 Encounter for screening for malignant neoplasm of colon (principal)
CPT/HCPCS: 99212

== ENCOUNTER → 2023-09-10 09:46 | Outpatient (BNVA) | payer OTHER, SELFPAY | PROVIDERS: PCP Family Medicine; Visit Provider Surgery | DX: Z12.11 Encounter for screening for malignant neoplasm of colon (principal) | CPT/HCPCS: 99212 ==

== ENCOUNTER 2023-10-26 12:26 | Outpatient (AMB) | payer OTHER, SELFPAY ==
--- NOTE | 2023-10-26 13:03 | MHC.OFFVIS ---
Intake Vital Signs 10/26/23 13:10 Height 5 ft 9 in Weight 227 lb 8 oz BMI 33.6 BP 134/74 Blood Pressure Location Lt brachial Position Sitting Pulse 78 Pulse Source Pulse Oximeter Pulse Oximetry (%) 97 Oxygen Delivery Method Room Air Intake Visit Reasons: 4 mnts f/u for ELAINE - CONF w/address Intake Note: Patient presents for 4 month f/u. needs a new machine very little air coming out. Allergies lisinopril [LISINOPRIL] Allergy (Severe, Verified 10/26/23 13:09) ANAPHYLAXIS shrimp [SHRIMP] Allergy (Severe, Verified 10/26/23 13:09) ANAPHYLAXIS metformin Allergy (Verified 10/26/23 13:09) Diarrhea rosiglitazone Allergy (Verified 10/26/23 13:09) Diarrhea MELON, HONEYDEW Allergy (Severe, Uncoded 09/10/23 09:54) ANAPHYLAXIS HPI HPI Comments History of Present Illness Details 63 y/o male patient presents for follow up of sleep study. artillery specialist ID # [id number] utilized. The PSG sleep study result did not meet the criteria of sleep apnea. The AHI was 4 and oxygen otilia was 82%. There were some periodic limb movement, but only some were associated with arousals. He uses mirtazipine 15 mg qHS for sleep. Pt was diagnosed with ELAINE in 2002 and has been using CPAP. He had gastric bypass surgery done in 2007 and lost 110 lb. Pt still uses his old CPAP, and sleeps better with CPAP. [facility] Medical History Colon cancer screening Diabetes mellitus type 2 in obese Surgical History H/O gastric sleeve Family History Father Coronary artery disease Hypertension Mother Diabetes mellitus Cancer Family/Other Prostate cancer Social History Alcohol intake: current Patient Tobacco Use Status: Never used Tobacco Review of Systems Const All systems reviewed & are unremarkable except as noted in HPI and below ENT Reports Normal hearing present Neuro Reports Normal hearing present Physical Exam Vital Signs: Last Vital Signs Pulse 78 10/26/23 13:10 BP 134/74 10/26/23 13:10 Pulse Ox 97 10/26/23 13:10 Oxygen Delivery Method Room Air 10/26/23 13:10 BMI result Body Mass Index 33.6 Const General: cooperative Nutritional Appearance: obese Orientation/consciousness: patient oriented x3 Neck Neck: Yes full ROM and Yes supple Resp Effort & Inspection: normal respiratory effort and able to speak in complete sentences Neuro General: patient oriented x3, gait normal and moves all extremities Cranial nerves: Yes Bilaterally intact EOM present, Yes Normal facial strength present, Yes Midline tongue present, Yes Normal hearing present, Yes Ability to bilaterally rotate head present and Yes Ability to bilaterally elevate shoulders present Cognition (Neuro): normal cognition Gait exam (Neuro): Normal gait present Motor exam (neuro): 5/5 motor strength present throughout, Pronator motor function not present and no tremor noted Psych Appearance: grossly normal Mental Status: mental status grossly normal Speech and movement: Normal speech and movement present Affect: normal affect Attitude: cooperative Assessment & Plan Assessment & Plan (1) Obese: Code(s): E66.9 - Obesity, unspecified (2) Daytime sleepiness: Code(s): R40.0 - Somnolence (3) ELAINE on CPAP: Code(s): G47.33 - Obstructive sleep apnea (adult) (pediatric) Plan The PSG sleep study result did not meet the criteria for apply for new CPAP. May continue to use his current CPAP if he sleeps better with it. Wt reduction advised. Coding Level of Care Code Est Pt Level 3 (61733) Diagnoses Obese E66.9 Daytime sleepiness R40.0 ELAINE on CPAP G47.33
[2023-10-26 13:10] VITALS: BP 134/74; PULSE 78; O2SAT 97; BMI 33.6
== END 2023-10-26 13:29 | disposition home or self-care (01) ==
PROVIDERS: PCP Family Medicine; Visit Provider Nurse Practitioner Family
DX: E66.9 Obesity, unspecified (principal); R40.0 Somnolence; G47.33 Obstructive sleep apnea (adult) (pediatric)
CPT/HCPCS: 99213

== ENCOUNTER → 2023-10-26 12:26 | Outpatient (BNVA) | payer OTHER, SELFPAY | PROVIDERS: PCP Family Medicine; Visit Provider Nurse Practitioner Family | DX: G47.33 Obstructive sleep apnea (adult) (pediatric) (principal); R40.0 Somnolence; E66.9 Obesity, unspecified; Z68.33 Body mass index [BMI] 33.0-33.9, adult | CPT/HCPCS: 99212 ==

== ENCOUNTER 2023-10-29 12:14 | Outpatient (REF) | payer OTHER, SELFPAY ==
[2023-10-29 16:17] LABS: Anion Gap 17 (12-20); Blood Urea Nitrogen 15 mg/dL (9-16); Calcium 9.8 mg/dL (8.4-10.2); Carbon Dioxide 26 mmol/L (22-29); Chloride 103 mmol/L (96-108); Estimated Glomerular Filt Rate > 60; Glucose Random 110 mg/dL (60-115); Potassium 4.5 mmol/L (3.3-5.1); Sodium 141 mmol/L (135-145)
== END 2023-10-29 12:15 | disposition home or self-care (01) ==
LOC: HO.HHCL 12:14
PROVIDERS: Visit Provider Family Medicine
DX: I10 Essential (primary) hypertension (principal)
CPT/HCPCS: 36415; 80048

== ENCOUNTER 2024-08-29 09:37 | Emergency (ER) | payer OTHER, SELFPAY ==
[2024-08-29] VITALS (10 sets, daily range): BP systolic 133–148; BP diastolic 50–86; PULSE 60–73; RESP 12–18; TEMP 36.6–36.9; O2SAT 96–98; BMI 33.5
--- NOTE | 2024-08-29 | ECG_ITS ---
Test Reason : chest pain Blood Pressure : */* mmHG Vent. Rate : 80 BPM Atrial Rate : 80 BPM P-R Int : 174 ms QRS Dur : 94 ms QT Int : 370 ms P-R-T Axes : 43 40 27 degrees QTcB Int : 426 ms Normal sinus rhythm Normal ECG When compared with ECG of 25-May-2019 23:18, Premature ventricular complexes are no longer Present Referred By: Generic ED Physician Electronically Signed By: Maverick Michele
--- NOTE | ~2024-08-29 | CT_ITS ---
EXAMINATION: CT HEAD WITHOUT CONTRAST CLINICAL INFORMATION: ramirez COMPARISON: CT dated May 29, 2000 and likely TECHNIQUE: Contiguous axial imaging was performed from the skull base to vertex without intravenous administration of contrast. This CT examination was performed using dose optimization techniques as appropriate, variously including the following: *Automated exposure control *Adjustment of mA and/or kV according to patient size (this includes techniques or standardized protocols for targeted exams where dose is matched to indication/reason for exam; i.e. extremities or head) *Use of iterative reconstruction technique DLP: 790 mGy-cm FINDINGS: Soft tissue contusion left parietal soft tissue scalp. Bony calvarium is intact. Skull base is intact. No acute intracranial hemorrhage, mass effect, midline shift, hydrocephalus or herniation. Sneed-white matter differentiation is normal. Posterior cranial fossa contents demonstrated no acute intracranial hemorrhage or mass effect. Prominence of the extra-axial CSF spaces along the intracranial convexities with prominence of the extra-axial cerebral sulci and ventricles likely central volume loss. Calcified plaques in the cavernous supracavernous segments both ICA. No air-fluid levels in the included sinuses. Tympanic cavities and mastoid cells are aerated. CT/CT head/brain wo IV con IMPRESSION: No acute fracture, bony calvarium. No acute intracranial hemorrhage. Stable brain. Mild Global cerebral atrophy. Electronically signed by: Cleveland Downs MD 08/29/2024 11:00 AM YUSUF
--- NOTE | ~2024-08-29 | XR_ITS ---
EXAMINATION: XR CHEST CLINICAL INFORMATION: chest pain COMPARISON: 02/29/2020. TECHNIQUE: AP portable view of the chest was obtained. FINDINGS: Cardiac, hilar, and mediastinal contours are normal. The lungs are clear bilaterally. No pneumothorax or effusion. Healed fracture of the right posterior fifth rib. Degenerative changes of the spine and both shoulder joints. Osseous and soft tissue structures otherwise normal. XR/XR chest 1V IMPRESSION: No active pulmonary disease. Electronically signed by: Thom Thomas MD 08/29/2024 10:26 AM YUSUF
--- NOTE | ~2024-08-29 | MR_ITS ---
EXAMINATION: MR BRAIN WITHOUT CONTRAST CLINICAL INFORMATION: Dizziness. Question cerebellar CVA. COMPARISON: CT brain 08/29/2024. TECHNIQUE: MRI of the brain was obtained using routine sequences without contrast. FINDINGS: There is no restricted diffusion seen to suspect any acute ischemic changes in supra or infratentorial space. There are punctate T2 foci in the deep white matter of bilateral frontal lobes without edema. The dorsey to white matter differentiation is maintained normal. No magnetic susceptibility artifact seen to suspect any acute or chronic hemorrhagic products or calcification. There is normal flow-void signal seen in major cerebral vasculature. There is mild mucoperiosteal thickening left maxillary sinus. Rest of the paranasal sinuses and mastoid air cells are well-aerated. Prominent right vestibular duct is seen in the temporal lobe measuring 1.2 mm, normal thickness. The cervical-medullary junction is normal. MR/MR head/brain wo con IMPRESSION: No acute intracranial process seen. Chronic inflammatory process left maxillary sinus. Electronically signed by: Antoni Sanches MD 08/29/2024 04:41 PM EST
--- NOTE | 2024-08-29 09:59 | ED_ITS ---
HPI - Chest Pain General Chief Complaint: Chest Pain Stated Complaint: L CP FROM CLINIC PER EMS Time Seen by Provider: 08/29/24 09:48 Source: patient Mode of arrival: ambulatory Limitations: no limitations History of Present Illness HPI narrative: This is 64 years old male [facility] because complaining of chest pain. Patient states that he also as headache that he feel dizzy standing up symptoms have been going on for few days. Patient denies history of hypertension MD complaint: chest pain Onset (ago): day(s) (3) Timing of current episode: episodic Prior episodes: No Onset: during rest Pain location: substernal Pain radiation: none Severity: mild Quality: dull Relieving factors: nothing Exacerbating factors: nothing Risk Factors Coronary artery disease risk factors: diabetes and hypertension Thoracic aortic dissection risk factors: none Related Data Home Medications ?Medication ?Instructions ?Recorded ?Confirmed aspirin 81 mg tablet,delayed 81 mg PO DAILY 06/29/23 09/10/23 release atorvastatin 40 mg tablet 40 mg PO BEDTIME 06/29/23 09/10/23 mecobalamin (vitamin B12) 1,000 1,000 mcg PO DAILY 06/29/23 09/10/23 mcg lozenges sertraline 100 mg tablet 100 mg PO DAILY 06/29/23 09/10/23 bupropion HCl 150 mg 24 hr tablet, 150 mg PO DAILY 07/23/23 09/10/23 extended release gabapentin 300 mg capsule 300 mg PO TID 07/23/23 09/10/23 insulin aspart U-100 100 unit/mL subcut 07/23/23 09/10/23 (3 mL) subcutaneous pen (Novolog FlexPen U-100 Insulin aspart) insulin degludec 100 unit/mL (3 unit subcut 07/23/23 09/10/23 mL) subcutaneous pen (Tresiba FlexTouch U-100 insulin) mirtazapine 15 mg tablet 15 mg PO BEDTIME 07/23/23 09/10/23 cholecalciferol (vitamin D3) 25 25 mcg PO DAILY 08/28/23 09/10/23 mcg (1,000 unit) tablet dapagliflozin propanediol 10 mg 10 mg PO DAILY 08/28/23 09/10/23 tablet (Farxiga) Previous Rx's ?Medication ?Instructions ?Recorded doxycycline hyclate 100 mg tablet 100 mg PO BID #19 tabs 07/21/21 magnesium oxide 400 mg PO DAILY 30 days #30 tabs 03/01/24 Allergies Allergy/AdvReac Type Severity Reaction Status Date / Time lisinopril [LISINOPRIL] Allergy Severe ANAPHYLAXIS Verified 08/29/24 09:50 shrimp [SHRIMP] Allergy Severe ANAPHYLAXIS Verified 10/26/23 13:09 metformin Allergy Diarrhea Verified 10/26/23 13:09 rosiglitazone Allergy Diarrhea Verified 10/26/23 13:09 MELON, HONEYDEW Allergy Severe ANAPHYLAXIS Uncoded 09/10/23 09:54 Review of Systems 2 Constitutional: Constitutional: Reports no additional constitutional complaints ENT: Reports system reviewed and no additional complaints, except as documented Cardiovascular: Cardiovascular: Reports no additional cardiovascular complaints Respiratory: Respiratory: Reports no additional respiratory complaints [facility] Past Medical History Attestation statement: The following information was validated with the patient. [facility] Narrative: Diabetes, hypertension, hypercholesterolemia, sleep apnea gastric bypass Medical History Colon cancer screening Diabetes mellitus type 2 in obese Surgical History H/O gastric sleeve Family History Family History Father Coronary artery disease Hypertension Mother Diabetes mellitus Cancer Family/Other Prostate cancer Social History Social History Alcohol intake: current Patient Tobacco Use Status: Never used Tobacco Smoked in Last 30 Days: No Use of substances other than those prescribed or required for medical reasons: No Advance Directives: No Advance Directives Information Provided: Yes Physical Exam 2 Vital Signs: Vital Signs: Last Vital Signs Temp 97.8 F 08/29/24 17:03 Pulse 64 08/29/24 17:03 Resp 13 08/29/24 17:03 BP 142/77 H 08/29/24 17:03 Pulse Ox 96 08/29/24 17:03 O2 Del Method Room Air 08/29/24 17:03 BMI result Body Mass Index 33.5 No acute distress comfortable in the stretcher Const: Other: Awake alert oriented x3 General: cooperative Nutritional Appearance: average body habitus O rientation/consciousness: patient oriented x3 Limitations: no limitations HEENT: Head: Yes normal to inspection General nose exam: Normal external nose present Mouth: Normal oral and palatal mucosa present Neck: Neck: Yes normal visual inspection Chest: Chest palpation & inspection: normal inspection of the chest Resp: Effort & Inspection: normal respiratory effort Auscultation: clear to auscultation bilaterally Cardio: Jugular venous distension: no JVD Rate: regular rate Rhythm: r egular rhythm GI: Inspection: Yes normal to inspection Palpation (GI): Soft to palpation, not firm and nontender Auscultation: normal bowel sounds Skin: General skin exam: no rashes or lesions noted, elasticity normal and turgor normal Lesions: no lesions Rashes: no rashes Neuro: General: patient oriented x3 Course Reevaluation(s) Reevaluation #1: MRI of the brain negative, at this point we are waiting for the 2nd troponin I think if he is negative he can be discharged home I signed out the case to Dr Rodriguez Time: 17:05 Medications Administered Discontinued Medications Generic Name Dose Route Start Last Admin Trade Name Ronq PRN Reason Stop Dose Admin Lactated Ringer's 1,000 mls @ 999 mls/hr 08/29/24 10:00 08/29/24 11:26 Lr IV 08/29/24 11:00 Infused .Q1H1M MELVIN Infusion Sodium Chloride 1,000 mls @ 999 mls/hr 08/29/24 14:30 08/29/24 15:37 Ns IVCONT 08/29/24 15:30 999 mls/hr .Q1H1M MELVIN Administration Meclizine HCl 25 mg 08/29/24 12:40 08/29/24 12:52 Meclizine Hcl 25 Mg Tablet PO 08/29/24 12:41 25 mg ONCE ONE Administration Metoclopramide HCl 10 mg 08/29/24 11:58 08/29/24 12:24 Metoclopramide Hcl 10 Mg/2 Ml Vial IVPUSH 08/29/24 11:59 10 mg ONCE ONE Administration Ondansetron HCl 4 mg 08/29/24 10:05 08/29/24 10:19 Ondansetron Hcl 4 Mg/2 Ml Vial IVPUSH 08/29/24 10:06 4 mg ONCE ONE Administration Medical Decision Making Medical Decision Making MDM Narrative: Patient presented to the ED with a chief complaint of chest pain lightheadedness we will go ahead and do EKG blood work Differential Diagnosis Differential Diagnoses: The differential diagnosis associated with the presentation includes Acute coronary syndrome/viral syndrome/was musculoskeletal pain Lab Data MDM Lab Attestation statement: I reviewed the patient's lab results. 08/29/24 10:19 08/29/24 10:19 Labs: Lab Results 08/29/24 08/29/24 Range/Units 10:17 10:19 WBC 8.8 (4.8-10.8) X10*3/uL RBC 4.87 (4.60-5.80) X10*6/uL Hgb 14.7 (14.0-18.0) g/dl Hct 40.9 L (42.0-52.0) % MCV 84.0 (80.0-98.0) fL MCH 30.2 (27.0-33.0) pg MCHC 35.9 (31.0-36.0) g/dl RDW 11.8 (11.0-16.0) % Plt Count 232 (160-400) X10*3/uL MPV 9.6 (9.4-12.4) fL Immature Gran % (Auto) 0.3 (0.0-0.4) % Neut % (Auto) 66.1 (45-73) % Lymph % (Auto) 26.1 (20-40) % [place] % (Auto) 6.5 (2-11) % Eos % (Auto) 0.7 (0-4) % Baso % (Auto) 0.3 (0-2) % Lymph # (Auto) 2.3 (1.2-4.9) X10*3/uL [place] # (Auto) 0.6 (0.1-1.2) X10*3/uL Eos # (Auto) 0.1 (0.0-0.4) X10*3/uL Baso # (Auto) 0.0 (0.0-0.2) X10*3/uL Abs Immat Gran (auto) 0.03 (0.00-0.03) X10*3/uL Absolute Neuts (auto) 5.8 (2.0-8.3) x10*3/uL Absolute Nucleated RBC 0.000 (0.0-0.012) X10*3/uL Nucleated RBC % (auto) 0.0 (0.0-0.2) /100WBC Sodium 141 (135-145) mmol/L Potassium 3.5 D (3.3-5.1) mmol/L Chloride 109 H (96-108) mmol/L Carbon Dioxide 25 (22-29) mmol/L Anion Gap 11 L (12-20) BUN 11 (9-16) mg/dL Creatinine 0.70 (0.5-1.4) mg/dL Estim Creat Clear Calc 137.3 Estimated GFR > 60 POC Glucose 198 H (60-115) mg/dL Random Glucose 230 H (60-115) mg/dL Calcium 8.5 D (8.4-10.2) mg/dL Total Bilirubin 0.4 (0.0-1.0) mg/dL AST 28 (5-37) U/L ALT 20 (0-40) U/L Alkaline Phosphatase 61 (39-117) U/L Troponin I High Sens < 2.7 (<3.5-35.0) ng/L Total Protein 6.6 (6.5-8.0) g/dL Albumin 3.7 (3.5-5.0) g/dL Influenza Type A (PCR) NEGATIVE (Negative) Influenza Type B (PCR) NEGATIVE (Negative) RSV RNA Qual (PCR) NEGATIVE (Negative) SARS-CoV-2 RNA (RT-PCR) NEGATIVE (Negative) Independent Interpretation I performed an independent interpretation of an: EKG (Normal sinus rhythm rate [address]-T changes normal EKG) Radiology Impression Discussion of test interpretation with radiology: I have reviewed the radiologist's reading. Discharge Plan Discharge Clinical Impression: Dizziness Chest pain Qualifiers: Chest pain type: unspecified Qualified Code(s): R07.9 - Chest pain, unspecified Patient Disposition: Still a Patient Prescriptions: No Action magnesium oxide 400 mg magnesium tablet 400 mg PO DAILY 30 Days Qty: 30 6RF doxycycline hyclate 100 mg tablet 100 mg PO BID Qty: 19 0RF Farxiga 10 mg tablet 10 mg PO DAILY cholecalciferol (vitamin D3) 25 mcg (1,000 unit) tablet 25 mcg PO DAILY atorvastatin 40 mg tablet 40 mg PO BEDTIME mecobalamin (vitamin B12) 1,000 mcg lozenge 1,000 mcg PO DAILY Rx Instructions: allow to dissolve in mouth OR may chew lightly before swallowing aspirin 81 mg tablet,delayed release (DR/EC) 81 mg PO DAILY sertraline 100 mg tablet 100 mg PO DAILY insulin degludec [Tresiba FlexTouch U-100] 100 unit/mL (3 mL) insulin pen subcut bupropion HCl 150 mg tablet extended release 24 hr 150 mg PO DAILY insulin aspart U-100 [Novolog FlexPen U-100 Insulin] 100 unit/mL (3 mL) insulin pen subcut gabapentin 300 mg capsule 300 mg PO TID mirtazapine 15 mg tablet 15 mg PO BEDTIME Print Language: Malaysian
[2024-08-29] MEDS: ondansetron HCL 4 MG/2 ML VIAL IVPUSH (10:19)
[2024-08-29] MEDS: Lactated Ringers 1,000 ML 999 ML IV (10:20)
[2024-08-29 10:22] LABS: Glucose, Whole Blood 198 mg/dL (60-115)
[2024-08-29 10:25] LABS: MANUAL DIFF FLAG NO
[2024-08-29 10:28] LABS: Basophils Percent Auto 0.3 % (0-2); Eosinophils Absolute Auto 0.1 X10*3/uL (0.0-0.4); Eosinophils Percent Auto 0.7 % (0-4); Hematocrit 40.9 % (42.0-52.0); Hemoglobin 14.7 g/dl (14.0-18.0); Imm Gran Abs Auto 0.03 X10*3/uL (0.00-0.03); Imm Gran Pct Auto 0.3 % (0.0-0.4); Lymphocytes Absolute Auto 2.3 X10*3/uL (1.2-4.9); Lymphocytes Percent Auto 26.1 % (20-40); Mean Corpuscular HGB Conc 35.9 g/dl (31.0-36.0); Mean Corpuscular Hemoglobin 30.2 pg (27.0-33.0); Mean Platelet Volume 9.6 fL (9.4-12.4); Monocytes Absolute Auto 0.6 X10*3/uL (0.1-1.2); Monocytes Percent Auto 6.5 % (2-11); Neutrophils Absolute Auto 5.8 x10*3/uL (2.0-8.3); Neutrophils Percent Auto 66.1 % (45-73); Platelet Count 232 X10*3/uL (160-400); Red Blood Count 4.87 X10*6/uL (4.60-5.80); Red Cell Distribution Width 11.8 % (11.0-16.0); White Blood Count 8.8 X10*3/uL (4.8-10.8)
[2024-08-29 10:45] LABS: Alanine Aminotransferase 20 U/L (0-40); Albumin Level 3.7 g/dL (3.5-5.0); Alkaline Phosphatase 61 U/L (39-117); Anion Gap 11 (12-20); Aspartate Amino Transferase 28 U/L (5-37); Bilirubin Total 0.4 mg/dL (0.0-1.0); Blood Urea Nitrogen 11 mg/dL (9-16); Calcium 8.5 mg/dL (8.4-10.2); Carbon Dioxide 25 mmol/L (22-29); Chloride 109 mmol/L (96-108); Creatinine Clr Calc Pharmacy 137.3; Estimated Glomerular Filt Rate > 60; Glucose Random 230 mg/dL (60-115); Potassium 3.5 mmol/L (3.3-5.1); Sodium 141 mmol/L (135-145); Total Protein 6.6 g/dL (6.5-8.0)
[2024-08-29 10:54] LABS: Troponin-I High Sensitivity < 2.7 ng/L (<3.5-35.0)
[2024-08-29 11:13] LABS: Influenza A PCR NEGATIVE (Negative); Influenza B PCR NEGATIVE (Negative); Resp Syncy Virus RNA Qual PCR NEGATIVE (Negative); SARS COV2 PCR INHOUSE NEGATIVE (Negative)
[2024-08-29] MEDS: Metoclopramide HCl 10 MG/2 ML VIAL IVPUSH (12:24)
[2024-08-29] MEDS: Meclizine HCl 25 MG TABLET PO (12:52)
--- NOTE | 2024-08-29 13:08 | PC.NURSE ---
mri form completed and faxed by this RN. manager strategic partnerships used
--- NOTE | 2024-08-29 14:50 | PC.NURSE ---
Pt taken to MRI
[2024-08-29] MEDS: 0.9 % Sodium Chloride 1,000 ML 999 ML IVCONT (15:37)
[2024-08-29 17:11] LABS: Troponin-I High Sensitivity < 2.7 ng/L (<3.5-35.0)
--- NOTE | 2024-08-29 18:39 | PC.NURSE ---
patient ambulated with tech, patient unsteady on feet due to dizziness. noted to be wall surfing
== END 2024-08-29 21:31 | disposition home or self-care (01) ==
PROVIDERS: Emergency Provider Emergency Medicine; PCP Family Medicine
DX: R42 Dizziness and giddiness (principal); R07.9 Chest pain, unspecified; R51.9 Headache, unspecified; E11.9 Type 2 diabetes mellitus without complications; I10 Essential (primary) hypertension; Z79.82 Long term (current) use of aspirin; Z79.02 Long term (current) use of antithrombotics/antiplatelets; Z79.4 Long term (current) use of insulin; Z79.899 Other long term (current) drug therapy; Z03.818 Encounter for observation for suspected exposure to other biological agents ruled out
CPT/HCPCS: 0241U; 36415; 70450; 70551; 71045; 80053; 82947; 84484; 85025; 93005; 96361; 96374; 96375; 99285; J2405; J2765; J7120

== ENCOUNTER → 2024-08-29 09:48 | Outpatient (BNV) | payer OTHER, SELFPAY | PROVIDERS: Emergency Provider Emergency Medicine; PCP Family Medicine; Visit Provider Radiology Diagnostic Radiology | DX: J32.0 Chronic maxillary sinusitis (principal); R51.9 Headache, unspecified; R07.9 Chest pain, unspecified | CPT/HCPCS: 70450; 70551; 71045 ==

== ENCOUNTER → 2024-08-29 10:06 | Outpatient (BNV) | payer OTHER, SELFPAY | PROVIDERS: Emergency Provider Emergency Medicine; PCP Family Medicine; Visit Provider Internal Medicine Cardiovascular Disease | DX: R07.9 Chest pain, unspecified (principal) | CPT/HCPCS: 93010 ==

== ENCOUNTER 2024-09-20 08:20 | Outpatient (AMB) | payer OTHER, SELFPAY ==
--- OUTSIDE RECORDS SUMMARY | 2024-09-20 08:33 | XMS_ITS | Encounter Summary ---
Author Organization [employer] Address [address] [facility] [address] [place] [address] Care Team Providers Care Cook Starch Name Role Phone Kenna Swift MD Primary Care Provider Jeet Freedman PharmD Unavailable [phone] Encounter Details Date Type Department Care Team (Late st Contact Info) Description 08/29/2024 Orders Only GENERIC EXTERNAL DATA DEPARTMENT Provider, Generic External Data Social History Tobacco Use Types Packs/Day Years Used Date Smoking Tobacco: Former Cigarettes Passive Smoke Exposure: Never Smokeless Tobacco: Never Alcohol Answer Date Recorded How often do you have a drink containing alcohol ? 4 08/20/2022 How many drinks containing a lcohol do you have on a typical day when you are drinking? 1 08/20/2022 How often do you have six or more drinks on one occasion? 0 08/20/2022 Depression Answer Date Recorded Patient Health Questionnaire-9 Score 17 08/20/2022 Housing Stability Answer Date Recorded What is your housing situation today? I do not have housing (Staying with others, in a hotel, in a [place] [facility] [place], living outside on the street, on a beach, in a car, or in a park 05/26/[address] you li ve. Do you have problems with any of the following? None of the above 05/26/2023 Food Insecurity Answer Date Recorded Within the past 12 months, y ou worried that your food would run out before you got money to buy more: Never True 06/05/2023 Within the past 12 months,th e food you bought just didn't last and you didn't have enough money to get more: Never True Transportation Answer Date Recorded In the past 12 months, has l ack of transportation kept you from medical appts, meetings, work or from getting things needed for daily living? No 06/05/2023 Utilities Answer Date Recorded In the past 12 months, has t he electric, gas, oil or water company threatened to shut off services in your home? No 06/05/2023 Depression Answer Date Recorded Patient Health Questionnaire-2 Score 6 08/20/2022 Sex and Gender Information Value Date Recorded Sex Assigned at Male 06/16/2022 10:15 AM EDT Legal Sex Male 10:15 AM EDT Gender Identity Male 06/16/2022 10:15 AM EDT Sexual Orientation Straight 06/16/2022 10 :15 AM EDT documented as of this encounter Plan of Treatment Upcoming Encounters Date Type Department Care Team (Late st Contact Info) Description 10/11/2024 1:15 PM EST Office Visit [facility] [address] [place] [address] [phone] Kenna Swift MD [address] [place] [address] 11/11/2024 11:00 AM EDT Medication Management [facility] [address] [place] [phone] Jeet Freedman, Cate [address] [place] [address] documented as of this encounter Goals Goal Patient Goal Type Associated Problems Recent Progress Patient-Stated? Author Blood Pressure < 140/90 Blood Pressure 122/68(2024 1:57 PM EST) No Jeet Freedman, PharmRebecca Hemoglobin A1c < 7 Result Component 7.4( 1:54 PM EST) No Jeet Freedman PharmD documented as of this encounter Procedures Procedure Name Priority Date/Time Associated Diagnosis Comments HIGH SENSITIVITY TROPONIN I Routine 08/29/2024 3:57 PM EST documented in this encounter Results * High Sensitivity Troponin I (08/29/2024 3:57 PM EST) TROPONIN I HIGH SENSITIVITY <2.7 <3.5 - 35.0 ng/L [facility] Comment:The [place] high sens itivity Troponin-I results should beused in conjunction with other diagnostic information suchas ECG, clinical observations and information, and patientsymptoms to aid in the diagnosis of [place]. 08/29/2024 3:57 PM EST 08/29/2024 4:00 PM EST us Generic External Data Provider LAB BLOOD ORDERAB LES Final Result [facility] [address] [place] [phone] documented in this encounter Visit Diagnoses Not on filedocumented in this encounter Additional Health Concerns Assessment Noted Time PHQ-9 Depression Total Score: 17 023 5:26 PM EST documented as of this encounter Care Teams Cook Starch Relationship Specialty Start Date End Date Kenna Swift MD [address] [place] [address] PCP - General Family Medicine 02/06/14 Jeet Freedman, EmilyD [address] [place] [phone] Pharmacist Internal Medicine 02/23/23 documented as of this encounter
--- OUTSIDE RECORDS SUMMARY | 2024-09-20 08:33 | XMS_ITS | Encounter Summary ---
Author Organization [employer] Address [address] [facility] [address] [place] [address] Care Team Providers Care Dyer Assistant Name Role Phone Kenna Swift MD Primary Care Provider [phone] Jeet Freedman PharmD Unavailable [phone] Reason for Visit * Reason Onset Date Comments Medication Question 08/30/2024 Encounter Details Date Type Department Care Team ([facility] st Contact Info) Description 08/30/2024 Telephone [facility] [address] [place], [place] [phone] Kenna Swift MD [address] [place], [place] [phone] Medication Question Social History Tobacco Use Types Packs/Day Years [...] with others, in a hotel, in a alf, living outside on the street, on a [...] AM EDT documented as of this encounter Miscellaneous Notes * Telephone Encounter - Trisha Whitley - 08/30/2024 1:27 PM EST Tc from pt requesting Jeet call him back. documented in this encounter Plan of Treatment Upcoming Encounters Date Type Department Care Team (Late st Contact Info) Description 10/11/2024 1:15 PM EST Office Visit [facility] [address] [place] [phone] Kenna Swift MD [address] [place] [phone] 11/11/2024 11:00 AM EDT Medication Management [facility] [address] [place] [phone] Jeet Freedman PharmD [address] [place] [phone] documented as of this encounter Goals Goal Patient Goal Type Associated Problems Recent Progress Patient-Stated? Author Blood Pressure < 140/90 Blood Pressure 122/68(2024 1:57 PM EST) No Jeet Freedman PharmD Hemoglobin A1c < 7 Result Component 7.4( 1:54 PM EST) Jeet Linares, PharmD documented as of this encounter Visit Diagnoses Not on filedocumented in this encounter Additional Health Concerns Assessment Noted Time PHQ-9 Depression Total Score: 17 023 5:26 PM EST documented as of this encounter Care Teams Dyer Assistant Relationship Specialty Start Date End Date Kenna Swift MD [address] [place] [address] PCP - General Family Medicine 02/06/14 Jeet Freedman, PharmD [address] [place] [address] Pharmacist Internal Medicine 02/23/23 documented as of this encounter
--- OUTSIDE RECORDS SUMMARY | 2024-09-20 08:34 | XMS_ITS | Encounter Summary ---
Author Organization [employer] Address [address] [facility] [address] [place] [address] Care Team Providers Care Keyboard Action Assembler Name Role Phone Kenna Swift MD Primary Care Provider [phone] Jeet Freedman PharmD Unavailable [phone] Encounter Details Date Type Department Care Team (Late st Contact Info) Description 09/01/2024 Telephone [facility] [address] [place], [place] [phone] Jeet Freedman, PharmD [address] [place], [place] [phone] Social History Tobacco Use Types Packs/Day Years [...] with others, in a hotel, in a assisted, living outside on the street, on a [...] encounter Miscellaneous Notes * Telephone Encounter - Jeet Freedman PharmD - 09/01/2024 1:06 PM EST Pharmacy called to inform [facility] pharmacist that patient is attempting to refills a prescription of Ozempic that has not been picked up since February 2024. Pharmacist called and spoke to the patient who explained the following.: Patient spent 5 months in [place]. While in [place] he ran out of Ozempic 2 mg and was able to get a prescription for Ozempic 0.5mg from an urgent care provider (verified in surescripts history). Patient reports that he has had hyperglycemia per [facility] ED and WIC, but he is unable to SMBG because he lost his reader at the airport returning from [place]. Pharmacist has submitted a prior authorization for CGM, but in the meantime patient should SMBG with [employer]. Pharmacist sent a new prescription for Ozempic 1 mg subcutaneously weekly to begin to taper the patient back up to 2 mg dose. Patient agrees to keep FU visit at [facility] 09/06/24 and [facility] FU 09/09/2024. documented in this encounter Plan of Treatment Upcoming Encounters Date Type Department Care Team (Late st Contact Info) Description 10/11/2024 1:15 PM EST Office Visit [facility] [address] [place] [address] Kenna Swift MD [address] [place] [address] 11/11/2024 11:00 AM EDT Medication Management [facility] [address] [facility] [place] [address] Jeet Freedman PharmD [address] [place] [address] documented as of this encounter Goals Goal Patient Goal Type Associated Problems Recent Progress Patient-Stated? Author Blood Pressure < 140/90 Blood Pressure 122/68(2024 1:57 PM EST) No Jeet Freedman PharmD Hemoglobin A1c < 7 Result Component 7.4( 1:54 PM EST) No Jeet Freedman PharmD documented as of this encounter Visit Diagnoses Diagnosis Type 2 diabetes mellitus with hyperglycemia, with long-term current use of insulin ([facility])- Primary documented in this encounter Additional Health Concerns Assessment Noted Time PHQ-9 Depression Total Score: 17 023 5:26 PM EST documented as of this encounter Care Teams Keyboard Action Assembler Relationship Specialty Start Date End Date Ken[place] [address] PCP - General Family Medicine 02/06/14 Jeet Freedman PharmD [address] [place] [address] [phone] Pharmacist Internal Medicine 02/23/23 documented as of this encounter
--- OUTSIDE RECORDS SUMMARY | 2024-09-20 08:34 | XMS_ITS | Encounter Summary ---
Author Organization [employer] [facility] Address 75 [facility] 7 [place] [address] Care Team Providers Care Fermenter Champagne Name Role Phone Kenna Swift MD Primary Care Provider Jeet Freedman PharmD Unavailable [phone] Reason for Referral * Medications - Closed Specialty Diagnoses / Procedures Referred By Roland hinojosa Referred To Contact Diagnoses Type 2 diabetes mellitus with hyperglycemia, with long-term current use of insulin ([facility]) Kenna Swift MD [address] [place] [address] Phone: tel: fax: Referral ID Status Reason Start Date Expiration Date Visits Re quested Visits Authorized [id number] Closed 1 1 * Medications - Closed Specialty Diagnoses / Procedures Referred By Roland hinojosa Referred To Contact Diagnoses Type 2 diabetes mellitus with hyperglycemia, with long-term current use of insulin ([facility]) Kenna Swift MD [address] [place] [address] Phone: tel: fax: Referral ID Status Reason Start Date Expiration Date Visits Re quested Visits Authorized [id number] Closed 1 1 Encounter Details Date Type Department Care Team (Late st Contact Info) Description 08/30/2024 Telephone [facility] MEDICINE [address] [place] [address] Jeet Freedman, PharmD [address] [place] [address] Social History Tobacco Use Types Packs/Day Years [...] with others, in a hotel, in a chcf, living outside on the street, on a [...] Miscellaneous Notes * Telephone Encounter - Jeet Freedman, PharmD - 08/30/2024 3:42 PM EST Patient called [facility] pharmacist to report that he lost his CGM [place] and has been unable to check BGvia sensor or finger capillaries. Confirmed with [facility] pharmacy that CGM supplies require a PA. Pharmacist will take this opportunity to transition to iubenda Anayeli 3 plus system as current Anayeli 2 system will be discontinued later in 2024. Prescriptions sent and PA will be submitted. CDTM FU scheduled 09/09/2024. documented in this encounter Plan of Treatment Upcoming Encounters Date Type Department Care Team (Late st Contact Info) Description 10/11/2024 1:15 PM EST Office Visit [facility] MEDICINE [address] [place] [phone] Kenna Swift MD [address] [place] [address] [phone] 11/11/2024 11:00 AM EDT Medication Management [facility] MEDICINE [address] [place] [address] [phone] Jeet Freedman PharmD [address] [place] [address] [phone] documented as of this encounter Goals Goal [...] hyperglycemia, with long-term current use of insulin ([facility])- Primary documented in this encounter Additional Health Concerns Assessment Noted Time PHQ-9 Depression Total Score: 17 023 5:26 PM EST documented as of this encounter Care Teams Fermenter Champagne Relationship Specialty Start Date End Date Kenna Swift MD [address] [place] [address] [phone] PCP - General Family Medicine 02/06/14 Jeet Freedman PharmD [address] [place] [address] [phone] Pharmacist Internal Medicine 02/23/23 documented as of this encounter
--- OUTSIDE RECORDS SUMMARY | 2024-09-20 08:34 | XMS_ITS | Encounter Summary ---
Author Organization [facility] Address 75 [facility] 7t [place] [address] Care Team Providers Care Civil Engineering Director Name Role Phone Kenna Swift MD Primary Care Provider [phone] Jeet Freedman PharmD Unavailable [phone] Encounter Details Date Type Department Care Team ([facility] Contact Info) Description 09/08/[address] [facility] MEDICINE [address] [place] [address] Amanda Metzger LPN Social History Tobacco Use Types Packs/Day Years Used Date Smoking Tobacco: Never Passive Smoke Exposure: Never Smokeless Tobacco: Never [...] Recorded Patient Health Questionnaire-9 Score 17 08/20/2022 Depression Answer Date Recorded Patient Health Questionnaire-2 Score 6 08/20/2022 Sex and Gender Information Value Date Recorded Sex Assigned at Male 06/16/2022 10:15 AM EDT Legal Sex Male 10:15 AM EDT Gender Identity Male 06/16/2022 10:15 AM EDT Sexual Orientation Straight 06/16/2022 10 :15 AM EDT COVID-19 Exposure Response Date Recorded In the last 10 days, have yo u been in contact with someone who was confirmed or suspected to have Coronavirus/COVID-19? No / Unsure 08/20/2022 4:27 PM EST documented as of this encounter Plan of Treatment Upcoming Encounters Date Type Department Care Team (Late Contact Info) Description 10/11/2024 1:15 PM EST Office [address] [facility] MEDICINE [address] [place] [address] Kenna Swift MD [address] [place] [address] 11/11/2024 11:00 AM EDT Medication Management [facility] [address] [place] [address] Jeet Freedman, Cate [address] [place] [phone] documented as of this encounter Visit Diagnoses Not on filedocumented in this encounter Additional Health Concerns Assessment Noted Time PHQ-9 Depression Total Score: 17 023 5:26 PM EST documented as of this encounter Care Teams Civil Engineering Director Relationship Specialty Start Date End Date Kenna Swift MD [address] [place] [address] PCP - General Family Medicine 02/06/14 Jeet Freedman, EmilyD [address] [place] [address] Pharmacist Internal Medicine 02/23/23 documented as of this encounter
--- OUTSIDE RECORDS SUMMARY | 2024-09-20 08:34 | XMS_ITS | Encounter Summary ---
Author Organization [employer] Address 75 [facility] 7t [place] [address] Care Team Providers Care Title I Paraprofessional Name Role Phone Kenna Swift MD Primary Care Provider [phone] Jeet Freedman PharmD Unavailable [phone] Reason for Visit * Reason Comments Med Refill Encounter Details Date Type Department Care Team (Late st Contact Info) Description 09/04/2024 Refill [facility] MEDICINE [address] [place], [place] [phone] Kenna Swift MD [address] [place], [place] [phone] Type 2 diabetes mellitus with hyperglycemia, with long-term current use of insulin ([facility]); Dyslipidemia Social History Tobacco Use Types Packs/Day Years [...] with others, in a hotel, in a detention, living outside on the street, on a [...] Description 10/11/2024 1:15 PM EST Office Visit [facility] MEDICINE [address] [place] [phone] Kenna Swift MD [address] [place] [phone] 11/11/2024 11:00 AM EDT Medication Management [facility] MEDICINE [address] [place] [phone] Jeet Freedman PharmD [address] [place] [address] documented as of this encounter Goals Goal [...] hyperglycemia, with long-term current use of insulin ([facility]) Dyslipidemia Other and unspecified hyperlipidemia documented in this encounter Additional Health Concerns Assessment Noted Time PHQ-9 Depression Total Score: 17 023 5:26 PM EST documented as of this encounter Care Teams Title I Paraprofessional Relationship Specialty Start Date End Date Kenna Swift MD [address] [place] [address] PCP - General Family Medicine 02/06/14 Jeet Freedman PharmD [address] [place] [address] Pharmacist Internal Medicine 02/23/23 documented as of this encounter
--- OUTSIDE RECORDS SUMMARY | 2024-09-20 08:34 | XMS_ITS | Encounter Summary ---
Author Organization [employer] Address 75 [facility] 7t [place] [address] Care Team Providers Care Tanning Solution Maker Name Role Phone Kenna Swift MD Primary Care Provider Jeet Freedman PharmD Unavailable [phone] Encounter Details Date Type Department Care Team ([facility] Contact Info) Description 01/20/2023 Orders Only [facility] MEDICINE [address] [place] [address] Amanda Metzger LPN Social History Tobacco [...] suspected to have Coronavirus/COVID-19? No / Unsure 01/22/2023 9:52 AM EDT documented as of this encounter Plan of Treatment Upcoming Encounters Date Type Department Care Team (Late Contact Info) Description 10/11/2024 1:15 PM EST Office Visit [facility] MEDICINE [address] [place] [address] Kenna Swift MD [address] [place] [address] 11/11/2024 11:00 AM EDT Medication Management [facility] MEDICINE [address] [place] [address] Jeet Freedman, Cate [address] [place] [address] documented as of this encounter Visit Diagnoses Not on filedocumented in this encounter Additional Health Concerns Assessment Noted Time PHQ-9 Depression Total Score: 17 023 5:26 PM EST documented as of this encounter Care Teams Tanning Solution Maker Relationship Specialty Start Date End Date Kenna Swift MD [address] [place] [address] PCP - General Family Medicine 02/06/14 Jeet Freedman, EmilyD [address] [place] [address] Pharmacist Internal Medicine 02/23/23 documented as of this encounter
--- OUTSIDE RECORDS SUMMARY | 2024-09-20 08:35 | XMS_ITS | Encounter Summary ---
Author Organization [employer] Address 75 [facility] 7t [place] [address] Care Team Providers Care Play Therapist Name Role Phone Kenna Swift MD Primary Care Provider [phone] Jeet Freedman PharmD Unavailable [phone] Reason for Visit * Reason Comments Med Refill Encounter Details Date Type Department Care Team (Late st Contact Info) Description 09/02/2024 Refill [facility] [address] [place] [address] Kenna Swift MD [address] [place] [address] Social History Tobacco Use Types Packs/Day Years [...] Description 10/11/2024 1:15 PM EST Office Visit [facility] MEDICINE [address] [place] [address] Kenna Swift MD [address] [place] [address] 11/11/2024 11:00 AM EDT Medication Management [facility] MEDICINE [address] [place] [address] Jeet Freedman PharmD [address] [place] [address] documented as of this encounter Goals Goal Patient Goal Type Associated Problems Recent Progress Patient-Stated? Author Blood Pressure < 140/90 Blood Pressure 122/68(2024 1:57 PM EST) No Jeet Freedman, PharmD Hemoglobin A1c < 7 Result Component 7.4( 1:54 PM EST) No Jeet Freedman PharmD documented as of this encounter Visit Diagnoses Not on filedocumented in this encounter Additional Health Concerns Assessment Noted Time PHQ-9 Depression Total Score: 17 023 5:26 PM EST documented as of this encounter Care Teams Play Therapist Relationship Specialty Start Date End Date Kenna Swift MD [address] [place] [phone] PCP - General Family Medicine 02/06/14 Jeet Freedman, EmilyD [address] [place] [address] Pharmacist Internal Medicine 02/23/23 documented as of this encounter
--- OUTSIDE RECORDS SUMMARY | 2024-09-20 08:35 | XMS_ITS | Encounter Summary ---
Author Organization [employer] Address 75 [facility] 7t [place] [address] Care Team Providers Care Customer Accounts Advisor Name Role Phone Kenna Swift MD Primary Care Provider [phone] Jeet Freedman PharmD Unavailable [phone] Reason for Visit * Reason Comments Med Refill Encounter Details Date Type Department Care Team (Late st Contact Info) Description 08/29/2024 Refill [facility] MEDICINE [address] [place], [place] [phone] Jeet Freedman, PharmD [address] [place], [place] [phone] Type 2 diabetes mellitus with hyperglycemia, with long-term current use of insulin ([facility]) Social History Tobacco Use Types Packs/Day Years [...] with others, in a hotel, in a longterm, living outside on the street, on a [...] Description 10/11/2024 1:15 PM EST Office Visit [facility] MEDICINE [address] [place] [address] Kenna Swift MD [address] [place] [address] 11/11/2024 11:00 AM EDT Medication Management [facility] MEDICINE [address] [place] [address] Jeet Freedman PharmD [address] [place] [address] documented as of this encounter Goals Goal Patient Goal Type Associated Problems Recent Progress Patient-Stated? Author Blood Pressure < 140/90 Blood Pressure 122/68(2024 1:57 PM EST) No Jeet Freedman PharmRebecca Hemoglobin A1c < 7 Result Component 7.4( 1:54 PM EST) No Jeet Freedman PharmD documented as of this encounter Visit Diagnoses Diagnosis Type 2 diabetes mellitus with hyperglycemia, with long-term current use of insulin ([facility]) documented in this encounter Additional Health Concerns Assessment Noted Time PHQ-9 Depression Total Score: 17 023 5:26 PM EST documented as of this encounter Care Teams Customer Accounts Advisor Relationship Specialty Start Date End Date Kenna Swift MD [address] [place] [address] PCP - General Family Medicine 02/06/14 Jeet Freedman, Cate [address] [place] [address] Pharmacist Internal Medicine 02/23/23 documented as of this encounter
--- OUTSIDE RECORDS SUMMARY | 2024-09-20 08:35 | XMS_ITS | Encounter Summary ---
Author Organization [employer] Address 75 [facility] 7t [place] [address] Care Team Providers Care Arborist Climber Name Role Phone Kenna Swift MD Primary Care Provider [phone] Jeet Freedman PharmD Unavailable [phone] Reason for Visit * Reason Onset Date Comments rapid responce 08/29/2024 Encounter Details Date Type Department Care Team ([facility] st Contact Info) Description 08/29/2024 Telephone [facility] MEDICINE [address] [place], [place] [phone] Kenna Swift MD [address] [place], [place] [phone] rapid responce Social History Tobacco Use Types Packs/Day Years [...] with others, in a hotel, in a skilled nursing, living outside on the street, on a [...] encounter Miscellaneous Notes * Telephone Encounter - Deyanira Edwards RN - 08/30/2024 9:18 AM EST Pt discharged from [facility] ED yesterday after being sent out from [facility] after a dizzy spell in the lobby.Pt labs, EKG, and brain MRI all came back with negative findings. Pt discharged with no change in current medications but pt confirms that there is some dizziness present, especially upon standing. Pt denies any chest pain or SOB. Pt agreeable to scheduling with Dr. Carr on 09/06/2024 for an ED F/U. Pt given caution on when to call back the office * Telephone Encounter - Deyanira Edwards RN - 08/29/2024 1:54 PM EST Pt currently at [facility] for chest pain and dizziness. Pt was sent out via EMS after feeling very dizzy in the [facility] lobby. (See triage not by Karen Mackenzie RN) Will do a status check to see if pt was admitted. * Telephone Encounter - Karen Mackenzie RN - 08/29/2024 10:21 AM EST Rapid response call to [facility] as patient presented to clinic for evaluation was extremely dizzyand off balance, patient was brought to chair to sit immediately to prevent fall. Patient reported a fall recently that he did not seek medical attention for and he also fell on the way to the clinicleft side of head tender with small abrasion. Vitals 152/87, HR 98, O2 98 on room air, blood glucose 302. EMS called at 0902 and pt to be transported to [facility]. Patient was brought into walk in center where Dr Bonner continued his assessment. Pt reports being dizzy for 5 days, falling when he changes positions sit to stand, feels as if t he room is spinning. After EMS arrived pt then reports chest pressure and SOB pt did not report that to rapid response team or the Doctor. PCP was in the [facility] and aware of event will send message to green team nurses to follow up documented in this encounter Plan of Treatment Upcoming Encounters Date Type Department Care Team (Late st Contact Info) Description 10/11/2024 1:15 PM EST Office Visit [facility] MEDICINE [address] [place] [address] Kenna Swift MD [address] [place] [address] 11/11/2024 11:00 AM EDT Medication Management [facility] MEDICINE [address] [place] [address] Jeet Freedman PharmD [address] [place] [address] documented as of this encounter Goals Goal [...] documented as of this encounter Care Teams Arborist Climber Relationship Specialty Start Date End Date Kenna Swift MD [address] [place] [address] PCP - General Family Medicine 02/06/14 Jeet Freedman, Cate [address] [place] [address] Pharmacist Internal Medicine 02/23/23 documented as of this encounter
--- OUTSIDE RECORDS SUMMARY | 2024-09-20 08:35 | XMS_ITS | Encounter Summary ---
Author Organization [employer] Address 75 [facility] 7t [place] [address] Care Team Providers Care Fairmont Gold Attendant Name Role Phone Kenna Swift MD Primary Care Provider [phone] Jeet Freedman PharmD Unavailable [phone] Encounter Details Date Type Department Care Team (Latest Contact Info) Description 09/09/2024 Travel Social History Tobacco Use Types Packs/Day Years [...] with others, in a hotel, in a long-term, living outside on the street, on a [...] Description 10/11/2024 1:15 PM EST Office Visit [facility] MEDICINE [address] [place] [address] Kenna Swift MD [address] [place] [address] 11/11/2024 11:00 AM EDT Medication Management [facility] MEDICINE [address] [place] [address] Jeet Freedman PharmD [address] [place] [address] documented as of this encounter Goals Goal [...] documented as of this encounter Care Teams Fairmont Gold Attendant Relationship Specialty Start Date End Date Kenna Swift MD [address] [place] [address] [phone] PCP - General Family Medicine 02/06/14 Jeet Freedman PharmD [address] [place] [address] [phone] Pharmacist Internal Medicine 02/23/23 documented as of this encounter
--- OUTSIDE RECORDS SUMMARY | 2024-09-20 08:35 | XMS_ITS | Encounter Summary ---
Author Organization [employer] Address 75 [facility] 7t [place] [address] Care Team Providers Care Assembler Erector Name Role Phone Kenna Swift MD Primary Care Provider [phone] Jeet Freedman PharmD Unavailable [phone] Reason for Visit * Reason Comments Med Refill Encounter Details Date Type Department Care Team (Late st Contact Info) Description 06/17/2023 Refill [facility] MEDICINE [address] [place], [place] [phone] Kenna Swift MD [address] [place], [place] [phone] Social History Tobacco Use Types Packs/Day Years [...] Description 10/11/2024 1:15 PM EST Office Visit [facility] MEDICINE [address] [place] [address] Kenna Swift MD [address] [place] [address] 11/11/2024 11:00 AM EDT Medication Management [facility] MEDICINE [address] [place] [address] Jeet Freedman PharmD [address] [place] [address] documented as of this encounter Goals Goal [...] documented as of this encounter Care Teams Assembler Erector Relationship Specialty Start Date End Date Kenna Swift MD [address] [place] [address] PCP - General Family Medicine 02/06/14 Jeet Freedman, PharmD [address] [place] [address] [place] [address] Pharmacist Internal Medicine 02/23/23 documented as of this encounter
--- OUTSIDE RECORDS SUMMARY | 2024-09-20 08:35 | XMS_ITS | Clinical Summary ---
Author Organization [facility] Address [address] [place] [address] Care Team Providers Care Helicopter Crew Chief Name Role Phone Kenna Swift MD Primary Care Provider [phone] Jeet Freedman PharmD Unavailable [phone] Allergies Active Allergy Reactions Criticality Noted Date Comments Lisinopril Swelling 02/23/2023 Tolerates losartan (ARB) Metformin Diarrhea 08/13/2010 Nsaids Unknown 08/13/2010 Rosiglitazone Diarrhea 08/13/2010 Medications buPROPion XL (Wellbutrin XL) 150 MG 24 hr tablet 023 Active sertraline (Zoloft) 100 MG tablet 023 Active Alcohol Swabs (Alcohol Prep) 70 % pads 023 Active ketorolac (Acular) 0.5 % ophthalmic solution PLACE 1 DROP IN THE RIGHT EYE TWICE DAILY 023 Active traZODone (Desyrel) 100 MG tablet TAKE 1 TABLET BY MOUTH AT BEDTIME NEEDED FOR SLEEP 023 Active Blood Pressure Monitor kitIndications: Essential hypertension Use as directed daily 1 kit 023 Active magnesium oxide (Mag-Ox) 400 (240 Mg) MG tablet TAKE 1 TABLET BY MOUTH EVERY MORNING 023 Active insulin aspart (NovoLOG FLEXPEN) 100 UNIT/ML penIndications: Type 2 diabetes mellitus with hyperglycemia, with long-term current use of insulin ([facility]) Inject under the skin 3 times daily with meals as directed by sliding scale. (B-200=2 units, 201-250=4 units, 251-300= 6 units, 301-350= 8 units, 351-400= 10 units, >400 12 units and call MD) 15 mL 5 024 Active losartan (Cozaar) 25 MG tabletIndicatio ns:Essential hypertension TAKE 1 TABLET BY MOUTH EVERY MORNING 90 tablet 3 05/15/2 024 Active mirtazapine (Remeron) 15 MG tabletIndicatio ns:Psychophysio logical insomnia TAKE 1 TABLET BY MOUTH AT BEDTIME 30 tablet 5 Active gabapentin (Neurontin) 300 MG capsule TAKE 1 CAPSULE BY MOUTH THREE TIMES DAILY IN THE MORNING, EVENING, AND BEDTIME FOR PAIN 90 capsule 5 Active aspirin (Aspirin Low Dose) 81 MG chewable tablet TAKE 1 TABLET BY MOUTH AT BEDTIME (MASTIQUE) 90 tablet 3 024 Active cyanocobalamin (Vitamin B-12) 1000 MCG tablet TAKE 1 TABLET BY MOUTH EVERY MORNING 90 tablet 3 024 Active cholecalciferol (Vitamin D-3) 25 MCG tablet TAKE 1 TABLET BY MOUTH EVERY MORNING 90 tablet 3 024 Active Continuous Glucose Car Wiper (FreeStyle Anayeli 3 Defiance) deviceIndicatio ns:Type 2 diabetes mellitus with hyperglycemia, with long-term current use of insulin ([facility]) 1 Device Use as directed. Scan sensor up to 4 times daily 1 each Active Continuous Glucose Sensor (FreeStyle Anayeli 3 Plus Sensor) miscIndications :Type 2 diabetes mellitus with hyperglycemia, with long-term current use of insulin ([facility]) Apply 1 Device topically every 15 days. 2 each Active glucose blood (FreeStyle Precision Leander Test) test stripIndication s:Type 2 diabetes mellitus with hyperglycemia, with long-term current use of insulin ([facility]) Use to check blood sugar up to three times daily as needed for hypoglycemia or sensor failure. 100 each 025 2025 Active semaglutide (Ozempic, 1 MG/DOSE,) 4 MG/3ML solution pen-injectorInd ications:Type 2 diabetes mellitus with hyperglycemia, with long-term current use of insulin ([facility]) Inject 1 mg under the skin once weekly as directed 3 mL Active Lancets miscIndications :Type 2 diabetes mellitus with hyperglycemia, with long-term current use of insulin ([facility]) Use to test blood sugar 3 times daily 100 each 025 Active Blood Glucose Monitoring Suppl (FreeStyle Kingman Lite) w/Device kitIndications: Type 2 diabetes mellitus with hyperglycemia, with long-term current use of insulin (CMS/HCC) Use to test blood sugar 3 times daily 1 kit 025 Active Easy Touch Pen Coventry 31G X 8 MM misc USE DIRECTED ONCE DAILY 100 each 3 025 Active Farxiga 10 MGIndications:T ype 2 diabetes mellitus with hyperglycemia, with long-term current use of insulin (CMS/HCC) TAKE 1 TABLET BY MOUTH EVERY MORNING 90 tablet 3 025 Active Multiple Vitamin (Multivitamin) tabletIndicatio ns:Type 2 diabetes mellitus with hyperglycemia, with long-term current use of insulin (CMS/HCC) TAKE 1 TABLET BY MOUTH EVERY MORNING WITH FOOD 100 tablet 3 025 Active atorvastatin (Lipitor) 40 MG tabletIndicatio ns:Dyslipidemia TAKE 1 TABLET BY MOUTH AT BEDTIME 90 tablet 3 025 Active meclizine (Antivert) 25 MG tablet Take 1 tablet by mouth every 8 (eight) hours if needed for dizziness. 025 Active insulin degludec (Tresiba FlexTouch) 100 UNIT/ML injectionIndica tions:Type 2 diabetes mellitus with hyperglycemia, with long-term current use of insulin ([facility]) INJECT 24 UNITS SUBCUTANEOUSLY ONCE DAILY 15 mL 025 Active TRUEplus Lancets 33G misc 023 2024 Discontinued(D uplicate order (will not trigger notification to Pharmacy)) Continuous Blood Gluc Car Wiper (FreeStyle Anayeli 2 Defiance) device Use as directed 1 each 1 023 2024 Discontinued(A lternate therapy) meloxicam (Mobic) 7.5 MG tablet Take 1 tablet (7.5 mg) by mouth in the morning. 14 tablet 023 2024 Discontinued(M ed list cleanup (will not trigger notification to Pharmacy)) Easy Touch Pen Coventry 31G X 8 MM misc Use once daily with Lantus 100 each 3 023 2024 Discontinued Multiple Vitamin (Multivitamin) tabletIndicatio ns:Type 2 diabetes mellitus with hyperglycemia, with long-term current use of insulin (CMS/HCC) TAKE 1 TABLET BY MOUTH EVERY MORNING WITH FOOD 100 tablet 3 024 2024 Discontinued atorvastatin (Lipitor) 40 MG tabletIndicatio ns:Dyslipidemia TAKE 1 TABLET BY MOUTH AT BEDTIME 90 tablet 3 024 2024 Discontinued Farxiga 10 MGIndications:T ype 2 diabetes mellitus with hyperglycemia, with long-term current use of insulin (CMS/HCC) TAKE 1 TABLET BY MOUTH EVERY MORNING 90 tablet 3 024 2024 Discontinued insulin degludec (Tresiba FlexTouch) 100 UNIT/ML injectionIndica tions:Type 2 diabetes mellitus with hyperglycemia, with long-term current use of insulin (CMS/HCC) Inject 18 units under the skin once daily 15 mL 2 024 2024 Discontinued Continuous Glucose Sensor (FreeStyle Anayeli 2 Sensor) misc Use as directed 2 each 11 024 2024 Discontinued(A lternate therapy) Semaglutide, 2 MG/DOSE, (Ozempic, 2 MG/DOSE,) 8 MG/3ML solution pen-injectorInd ications:Type 2 diabetes mellitus with hyperglycemia, with long-term current use of insulin (CMS/HCC) Inject 2 mg under the skin 1 (one) time per week. 9 mL 1 024 2024 Discontinued(D ose adjustment) insulin degludec (Tresiba FlexTouch) 100 UNIT/ML injectionIndica tions:Type 2 diabetes mellitus with hyperglycemia, with long-term current use of insulin (CMS/HCC) INJECT 18 UNITS SUBCUTANEOUSLY ONCE DAILY 15 mL 2 025 2024 Discontinued(R eorder (will not trigger notification to Pharmacy)) glucose blood (FREESTYLE LITE) test stripIndication s:Type 2 diabetes mellitus with hyperglycemia, with long-term current use of insulin (CMS/HCC) Use to test blood sugar 3 times daily 100 each 025 2024 Discontinued(M ed list cleanup (will not trigger notification to Pharmacy)) Active Problems Problem Noted Date Diagnosed Date Type 2 diabetes mellitus wit h microalbuminuria, with long-term current use of insulin 04/24/2023 Assessment & Plan (10/25/2023 12:54 PM EDT): - A1C 6.2% on 10/12/23, trending down 7.0%. Marked improvement, yet concern for hypoglycemic episode - Co-managed with our pharmacist through [facility] -Emphasized the importance of lifestyle modification and SMBG. -Continue Farxiga 10 mg daily -Continue semaglutide 0.5 mg weekly -Decrease Tresiba to 24 units at bedtime -Continue Novolog; consider decreasing -Consider Boost glucose management Treatment Hx -Pt had intolerance to Metformin. -Discontinued glipizide in February 2016 due to hypoglycemia. Last eye exam: Non-proliferative DM retinopathy. Following with [facility], next appt in February 2023 Last foot exam: 01/22/23 Last microalbumin test: 01/22/23 UACR 309, albuminuria Last lipid profile: 01/22/23 TC 154; HDL 57; LDL 77; TG 116 Last dental exam: -f/u in 3 months Diabetes mellitus, type 2 01/22/2023 Assessment & Plan (10/25/2023 12:53 PM EDT): - A1C 6.2% on 10/12/23, trending down 7.0%. Marked improvement, yet concern for hypoglycemic episode - Co-managed with our pharmacist through [facility] -Emphasized the importance of lifestyle modification and SMBG. -Continue Farxiga 10 mg daily -Continue semaglutide 0.5 mg weekly -Decrease Tresiba to 24 units at bedtime -Continue Novolog; consider decreasing -Consider Boost glucose management Treatment Hx -Pt had intolerance to Metformin. -Discontinued glipizide in February 2016 due to hypoglycemia. Last eye exam: Non-proliferative DM retinopathy. Following with [facility], next appt in February 2023 Last foot exam: 01/22/23 Last microalbumin test: 01/22/23 UACR 309, albuminuria Last lipid profile: 01/22/23 TC 154; HDL 57; LDL 77; TG 116 Last dental exam: -f/u in 3 months Assessment & Plan (07/07/2023 3:13 PM EST): - A1C 7.0% on 07/02/23, improved from 9.2% - Co-managed with our pharmacist through [facility] -Emphasized the importance of lifestyle modification and SMBG. -Continue Farxiga 10 mg daily -Start semaglutide -Decrease Tresiba to 34 units at bedtime -Continue Novolog to 10 units with meal, adjusted sliding scale -Pt to check BS 2-hrs after each meal and then give insulin. Treatment Hx -Pt had intolerance to Metformin. -Discontinued glipizide in February 2016 due to hypoglycemia. Last eye exam: Non-proliferative DM retinopathy. Following with [facility], next appt in February 2023 Last foot exam: 01/22/23 Last microalbumin test: 01/22/23 UACR 309, albuminuria Last lipid profile: 01/22/23 TC 154; HDL 57; LDL 77; TG 116 Last dental exam: Immunizations: -Influenza - incomplete for this season -Pneumovax - Mar 2014 -Hep B - Completed Aspirin use: prescribed -f/u in 2 months Assessment & Plan (04/24/2023 5:43 AM EDT): - last A1C 9.2% -Emphasized the importance of lifestyle modification and SMBG. -Continue Farxiga 10 mg daily -Consider Trulicity in the future -Increase Lantus to 40 units at bedtime, and self-titrate -Continue Novolog to 10 units with meal, adjusted sliding scale -Pt to check BS 2-hrs after each meal and then give insulin. Treatment Hx -Pt had intolerance to Metformin. -Discontinued glipizide in February 2016 due to hypoglycemia. Last eye exam: Non-proliferative DM retinopathy. Following with [facility], next appt in February 2023 Last foot exam: 01/22/23 Last microalbumin test: 02/21/23 UACR 309, albuminuria Last lipid profile: 02/21/23 TC 154; HDL 57; LDL 77; TG 116 Last dental exam: Immunizations: -Influenza - incomplete for this season -Pneumovax - Mar 2014 -Hep B - Completed Aspirin use: prescribed -f/u in 2 months Assessment & Plan (02/02/2023 12:23 PM EDT): A1c 12.3 on 07/14/22, trending up -Emphasized the importance of lifestyle modification and SMBG. -Continue Farxiga 10 mg daily -Consider Trulicity in the future -Continue Lantus to 36 units at bedtime, and self-titrate -Continue Novolog to 10 units with meal -Pt to check BS 2-hrs after each meal and then give insulin. Treatment Hx -Pt had intolerance to Metformin. -Discontinued glipizide in February 2016 due to hypoglycemia. Last eye exam: Non-proliferative DM retinopathy. Following with [facility], next appt in February 2023 Last foot exam: 01/22/23 Last microalbumin test: 02/07/22 UACR 251, microalbuminuria Last lipid profile: 02/07/22 TC 203; TG 120; HDL 61; LDL 119 Last dental exam: Immunizations: -Influenza - incomplete for this season -Pneumovax - Mar 2014 -Hep B - Completed Aspirin use: prescribed -f/u in 2 months History of angioedema 01/19/2023 Mood disorder 01/19/2023 Assessment & Plan (10/25/2023 12:54 PM EDT): previously diagnosed as major depression. -psychiatrist - Dr. Suggs. -therapist - Giselle at [facility]. -continue: Bupropion, Zoloft, Ambien. --patient also has therapeutic animal Assessment & Plan (07/07/2023 3:12 PM EST): previously diagnosed as major depression. -psychiatrist Sugar Suggs. -therapist - Giselle at [facility]. -continue: Bupropion, Zoloft, Ambien. --patient also has therapeutic animal Assessment & Plan (01/22/2023 11:41 AM EDT): previously diagnosed as major depression. -psychiatrist Sugar Suggs. -therapist - Giselle at [facility]. -continue: Bupropion, Zoloft, Ambien. --patient also has therapeutic animal Diabetic peripheral neuropathy 12/13/2015 Assessment & Plan (07/07/2023 3:03 PM EST): Confirmed Peripheral Neuropathy from NCT in 2016 -Currently on gabapentin 300mg BID -Continue Gabapentin 300 mg TID, discussed about judicious use and about side- effects -Consider evaluating PVD. Assessment & Plan (01/22/2023 11:44 AM EDT): Confirmed Peripheral Neuropathy from NCT in 2017 -Currently on gabapentin 300mg BID -Continue Gabapentin 300 mg TID, discussed about judicious use and about side- effects -f/u in 1 mo -Consider evaluating PVD. Chronic recurrent major depressive disorder 01/2015 Assessment & Plan (10/25/2023 12:54 PM EDT): previously diagnosed as major depression. -psychiatrist - Dr. Suggs. -therapist - Giselle at [facility]. -continue: Bupropion, Zoloft, Ambien. --patient also has therapeutic animal Assessment & Plan (07/07/2023 3:15 PM EST): previously diagnosed as major depression. -psychiatrist - Dr. Suggs. -therapist - Giselle at [facility]. -continue: Bupropion, Zoloft, Ambien. --patient also has therapeutic animal Essential hypertension 05/22/2015 Assessment & Plan (10/25/2023 12:49 PM EDT): -Previously on Lisinopril for Microalbuminuria, discontinued when developed angioedema. -Goal BP <140/90 per JNC-8; < 130/80 per ACC/AHA guideline -BP not at goal -Co-managed with our pharmacist through [employer], pt is attending appts. -Continue Losartan 25 mg daily -Previously on Lisinopril for Microalbuminuria, discontinued when developed angioedema. -Continue working on lifestyle modifications -Improve adherence to CPAP for ELAINE -Follow up in 3 mo or sooner prn Assessment & Plan (07/07/2023 3:04 PM EST): -Previously on Lisinopril for Microalbuminuria, discontinued when developed angioedema. -Goal BP <140/90 per JNC-8; < 130/80 per ACC/AHA guideline -BP not at goal -Co-managed with our pharmacist through [employer] [facility], pt is attending appts. -Continue Losartan 25 mg daily -Previously on Lisinopril for Microalbuminuria, discontinued when developed angioedema. -Continue working on lifestyle modifications -Improve adherence to CPAP for ELAINE -Follow up in 3 mo or sooner prn Assessment & Plan (04/24/2023 5:41 AM EDT): -Previously on Lisinopril for Microalbuminuria, discontinued when developed angioedema. -Goal BP <140/90 per JNC-8; < 130/80 per ACC/AHA guideline -Continue Losartan 12.5mg daily -Previously on Lisinopril for Microalbuminuria, discontinued when developed angioedema. -Continue working on lifestyle modifications -Improve adherence to CPAP for ELAINE -Follow up in 3 mo or sooner prn Assessment & Plan (02/02/2023 12:14 PM EDT): Previously on Lisinopril for Microalbuminuria, discontinued when developed angioedema. Goal BP <140/90 -Continue Losartan 12.5mg daily -Previously on Lisinopril for Microalbuminuria, discontinued when developed angioedema. -Continue working on lifestyle modifications -Improve adherence to CPAP for ELAINE -Follow up in 3 mo or sooner prn Mixed hyperlipidemia 05/22/2015 Assessment & Plan (07/07/2023 3:14 PM EST): Last lipid profile: 01/22/23 TC 154; HDL 57; LDL 77; TG 116 Current medication: Atorvastatin 40 mg at bedtime Continue working on lifestyle modifications. Allergic rhinitis 11/16/2014 Chronic back pain 11/16/2014 Tubular adenoma of colon 09/15/2014 Assessment & Plan (10/25/2023 12:50 PM EDT): - 08/28/[address] Wolfe. Lena prep. Recommended to repeat in 5 years Assessment & Plan (04/24/2023 5:48 AM EDT): - pt was given [facility] GI number to call to schedule a colonoscopy. Obstructive sleep apnea 05/10/2012 Assessment & Plan (10/25/2023 12:49 PM EDT): -Previously followed by [facility] sleep medicine clinic, last seen in Apr 2021 -Sleep study 01/15/18, which showed mild ELAINE. Recommended AutoCPAP 6-15 cm H2O. If pt has nasal congestion, ipratropium 0.03% before bedtime was recommended -Does not have a CPAP machine currently, prescribed CPAP machine in January 2023. -Currently following with [facility] sleep medicine clinic on 06/29/23. -Sleep study on 07/27/23 did not meet the criteria for ELAINE -Follow up with Sleep medicine clinic provider for further recommendation Assessment & Plan (07/07/2023 3:02 PM EST): -Previously followed by [facility] sleep medicine clinic, last seen in Apr 2021 -Last sleep study 01/15/18, which showed mild ELAINE. Recommended AutoCPAP 6-15 cm H2O. If pt has nasal congestion, ipratropium 0.03% before bedtime was recommended -Does not have a CPAP machine currently, prescribed CPAP machine in January 2023. -Seen by sleep medicine clinic on 06/29/23. New sleep study was ordered. Assessment & Plan (04/24/2023 5:40 AM EDT): -Previously followed by [facility] sleep medicine clinic, last seen in Apr 2021 -Last sleep study 01/15/18, which showed mild ELAINE. Recommended AutoCPAP 6-15 cm H2O. If pt has nasal congestion, ipratropium 0.03% before bedtime was recommended -Does not have a CPAP machine currently, prescribed CPAP machine in January 2023. Check its status -Consider referring back to sleep medicine clinic or in-lab sleep study since pt does not have a stable housing situation Assessment & Plan (02/02/2023 12:12 PM EDT): -Previously followed by [facility] sleep medicine clinic, last seen in Apr 2021 -Last sleep study 01/15/18, which showed mild ELAINE. Recommended AutoCPAP 6-15 cm H2O. If pt has nasal congestion, ipratropium 0.03% before bedtime was recommended -Does not have a CPAP machine currently, will prescribe a CPAP machine. Class 1 obesity 02/19/2012 Moderate nonproliferative diabetic retinopathy 0 01/05/2012 Assessment & Plan (07/07/2023 3:05 PM EST): - Following with Dr. Azevedo at [facility] - Following with [facility] - anticipating a surgery Assessment & Plan (02/02/2023 12:19 PM EDT): - Following with Dr. Azevedo Resolved Problems Problem Noted Date Diagnosed Date Resolved Date Continuous opioid dependence 11/16/2014 07/02/2023 Encounters Date Type Department Care Team Description 09/09/2024 Travel 09/04/2024 Refill [facility] [address] [place] [address] Kenna Swift MD Type 2 diabetes mellitus with hyperglycemia, with long-term current use of insulin ([facility]); Dyslipidemia 09/02/2024 Refill [facility] [address], [place] [phone] Kenna Swift MD 09/01/2024 Telephone [facility] [address] [place] [address] Jeet Freedman, PharmD 08/30/2024 Telephone [facility] [address] [place] [phone] Jeet Freedman, PharmD 08/30/2024 Telephone [facility] [address] [place] [phone] Kenna Swift MD Medication Question 08/29/2024 9:40 AM EST Office Visit [facility] [address] [place] [address] Yunior Bonner MD Dizziness (Primary Dx); Type 2 diabetes mellitus with hyperglycemia, with long-term current use of insulin (CMS/HCC); Fall, initial encounter; Acute post-traumatic headache, not intractable 08/29/2024 Orders Only GENERIC EXTERNAL DATA DEPARTMENT Provider, Generic External Data 08/29/2024 Telephone [facility] [address] [place] [address] Kenna Swift MD rapid responce 08/29/2024 Refill [facility] [address] [place] [phone] Jeet Freedman, PharmD Type 2 diabetes mellitus with hyperglycemia, with long-term current use of insulin (CMS/HCC) 08/20/2024 Refill [facility] [address] [place] [address] Jeet Freedman, PharmD Type 2 diabetes mellitus with hyperglycemia, with long-term current use of insulin ([facility]) 08/19/2024 Orders Only [facility] [address] [facility] [place] [address] Kenna Swift MD Type 2 diabetes mellitus with hyperglycemia, with long-term current use of insulin ([facility]) (Primary Dx) 08/19/2024 Telephone [facility] [address] [place] [address] Kenna Swift MD 08/18/2024 Telephone [facility] [address], [place] [phone] Vianca Puentes RNenglish and reading instructor 08/17/2024 Refill [facility] [address] [place] [address] Jeet Freedman, PharmD Type 2 diabetes mellitus with hyperglycemia, with long-term current use of insulin ([facility]) 07/21/2024 Telephone [facility] [address] [place] [address] Kenna Swift MD Appointment Request from Last 3 Months Immunizations Name Administration Dates Next Due Hep A, Adult 10/12/2023,12/12/2022 Hep B, adult 04/21/2023, 5,11/16/2014,09/07 Influenza Injectable Quadriv alant Preservative Free IIV4 MDCK 05/17/2021 Influenza injectable quadriv alent IIV4 with preservative 05/13/2018,05/29/2016 Influenza injectable quadriv alent preservative free 07/02/2023,07/14/2022,07/26/2020,05/21,05/23/2019,07/05/2017,06/04/2017 ,05/06/2015,06/17/2014 Influenza, IIV3, injectable 05/23/2013, 1 Influenza, Split (incl. apurva fied surface antigen) 05/10/2012 Pfizer Covid-19 Vaccine 12+ 07/02/2023 Pneumococcal Conjugate PCV 20 04/21/2023 Pneumococcal Polysaccharide PPSV23 07/07/2020, RSV Bivalent 08/07/2023 Rabies, intramuscular 01/01/2018 TD (adult), 2 Lf tetanus tox oid, preservative free, adsorbed 01/01/2018 Tdap 07/22/2011,01/14/2011 Zoster, Recombinant 08/15/2021,05/17/2021 Social History Tobacco Use Types Packs/Day Years Used Date Smoking Tobacco: Former Cigarettes Passive Smoke Exposure: Never Smokeless Tobacco: Never Tobacco Cessation:Counseling Given: Not Answered Alcohol Answer Date Recorded How often do [...] with others, in a hotel, in a correction, living outside on the street, on a [...] Orientation Straight 06/16/2022 10 :15 AM EDT Last Filed Vital Signs Vital Sign Reading Time Taken Comments Blood Pressure 122/68 09/09/2024 1:57 PM EST Pulse 80 09/09/2024 1:57 PM EST Temperature 37.2 ??C (98.9 ??F) 10/12/2023 11:[address] Respiratory Rate 20 10/12/2023 11:18 AM EST Oxygen Saturation 98% 08/29/2024 8:58 AM EST room air Inhaled Oxygen Concentration - - Weight 104 kg (228 lb 12.8 oz) 10/12/2023 11:18 AM EST Height 175.3 cm (5' 9 ) 07/02/2023 11:10 AM EST Body Mass Index 33.79 07/02/2023 11:10 AM EST Plan of Treatment Upcoming Encounters Date Type Department Care Team (Late st Contact Info) Description 10/11/2024 1:15 PM EST Office Visit [facility] [address] [place] [phone] Kenna Swift MD [address] [place] [address] 11/11/2024 11:00 AM EDT Medication Management [facility] [address] [place] [address] Jeet Freedman, PharmD [address] [place] [address] Health Maintenance Due Date Last Done Comments CT Colonography 1962 FIT DNA/Cologuard 1962 FIT 1962 FOBT 1962 Sigmoidoscopy 1962 Eye Exam 1972 Alcohol/Substance Use Screening 1974 Depression Monitoring (PHQ-9) 02/17/2023 08/20/2022, 08/20/2022 Depression Screening 08/20/2023 08/20/2022, 08/20/19 23 Lipid Panel 01/23/2024 01/22/2023, 01/16, 07/27/2020 SDOH Screening 01/23/2024 01/22/2023 Diabetes: Foot Exam 02/21/2024 02/20/2023, COVID-19 Vaccine ( season) 2024 07/02/2023, 02/06/2022, 08/08/2021, Additional history exists Influenza Vaccine (#1) 2024 3, 07/14/2022, 05/17/2021, Additional history exists Tobacco Screening 10/12/2024 10/12/2023 Diabetes: Hemoglobin A1C 12/08/2024 025, 10/12/2023, 07/02/2023, Additional history exists DTaP/Tdap/Td Vaccines (4 - Td or Tdap) 01/02/2028 01/01/2018, 07/22/2011, 01/14/2011 Colonoscopy 09/10/2028 09/10/2023 Colorectal Cancer Screening 09/10/2028 Zoster Vaccines Completed 08/15/2021, 05/17/2021 HIV Screening Completed 01/22/2023 Hepatitis C Screening Completed 01/22/2023 Hepatitis B Vaccines Completed 04/21/2023, 05/15/2015, 11/16/2014, Additional history exists Pneumococcal Vaccine: 50+ Years Completed 04/21/2023, 07/07/2020, 03/27/2014 RSV Patients and Patients Aged 60 years or older Completed 08/07/2023 Hepatitis A Vaccines Aged Out 10/12/2023, 12/13/19 23 No longer eligible based on patient's age to complete this topic HIB Vaccines Aged Out No longer eligi ble based on patient's age to complete this topic HPV Vaccines Aged Out No longer eligi ble based on patient's age to complete this topic IPV Vaccines Aged Out No longer eligi ble based on patient's age to complete this topic Meningococcal Vaccine Aged Out No aundrea luke eligible based on patient's age to complete this topic RSV under 20 months Aged Out No longe r eligible based on patient's age to complete this topic Rotavirus Vaccines Aged Out No longer eligible based on patient's age to complete this topic Goals Goal Patient Goal Type Associated Problems Recent Progress Patient-Stated? Author Blood Pressure < 140/90 Blood Pressure 122/68(2024 1:57 PM EST) No Jeet Freedman PharmD Hemoglobin A1c < 7 Result Component 7.4( 1:54 PM EST) No Jeet Freedman PharmD Procedures Procedure Name Priority Date/Time Associated Diagnosis Comments POCT GLYCATED HEMOGLOBIN, TOTAL Routine 09/09/2024 1:54 PM EST Type 2 diabetes mellitus with hyperglycemia, with long-term current use of insulin (CMS/HCC) HIGH SENSITIVITY TROPONIN I Routine 08/29/2024 3:57 PM EST MR BRAIN WO CONTRAST Routine 08/29/2024 12:[address] HEAD WO CONTRAST Routine 08/29/2024 9 :55 AM EST POCT GLUCOSE Routine 08/29/2024 8:59 AM EST Type 2 diabetes mellitus with hyperglycemia, with long-term current use of insulin (CMS/HCC) HM COLONOSCOPY Routine 09/10/2023 HEPATITIS C AB W/REFL TO HCV RNA, QN, PCR Routine 01/22/2023 11:24 AM EDT Routine screening for STI (sexually transmitted infection) HIV 1/2 ANTIGEN/ANTIBODY, FOURTH GENERATION W/RFL Routine 01/22/2023 11:24 AM EDT Routine screening for STI (sexually transmitted infection) LIPID PANEL WITH REFLEX TO DIRECT LDL Routine 01/22/2023 11:22 AM EDT Type 2 diabetes mellitus with hyperglycemia, with long-term current use of insulin (CMS/HCC) from Last 3 Months or Most Recently Relevant to Health Maintenance Results * (ABNORMAL) POCT HGB A1C (09/09/2024 1:54 PM EST) Hemoglobin A1C 7.4(A) 4.0 - 6.0 % QC Media Lot # [id number] Lot# Expiration Date ,233 Blood 09/09/2024 1:54 PM EST us Kenna Swift MD POINT OF CARE TEST ENTER/EDIT OR DERABLES Final Result * High Sensitivity Troponin I (08/29/2024 3:57 PM EST) TROPONIN I HIGH SENSITIVITY <2.7 <3.5 - 35.0 ng/L [facility] Comment:The [place] high sens itivity Troponin-I results should beused in conjunction with other diagnostic information suchas ECG, clinical observations and information, and patientsymptoms to aid in the diagnosis of [place]. 08/29/2024 3:57 PM EST 08/29/2024 4:00 PM EST us Generic External Data Provider LAB BLOOD ORDERAB LES Final Result Performing Organization Address [facility]/State[facility] Co de Phone Number [facility] [address] [place] [address] [phone] * MR Brain w/o Contrast (08/29/2024 12:41 PM EST) Anatomical Region Laterality Modality Brain Magnetic Resonan ce 08/29/2024 12:4 1 PM EST Narrative 08/29/2024 4:44 PM EST ? [facility] ?[address] ?[place] [address] ? Magnetic Resonance Report ? Signed ? Patient: Sigifredo Brown ?MR#: [id number] ?? [id number] ? : 1960 ?Acct:[id number] ? Age/Sex: 64 / M ?ADM Date: 08/29/24 ? Loc: HO.ED ? Attending Dr: ? Ordering Physician: Evangelista Song MD ?? Date of Service: 08/29/24 ?? Procedure(s): MR head/brain wo con ?? Accession Number(s): [id number] ? cc: Evangelista Song MD; Kenna Swift MD ? EXAMINATION: ?? MR BRAIN WITHOUT CONTRAST ? CLINICAL INFORMATION: ?? Dizziness. Question cerebellar CVA. ? COMPARISON: ?? CT brain 08/29/2024. TECHNIQUE: ?? MRI of the brain was obtained using routine sequences without contrast. ? FINDINGS: ?? There is no restricted diffusion seen to suspect any acute ischemic ?? changes in supra or infratentorial space. There are punctate T2 foci in ?? the deep white matter of bilateral frontal lobes without edema. The ?? dorsey to white matter differentiation is maintained normal. No magnetic ?? susceptibility artifact seen to suspect any acute or chronic ?? hemorrhagic products or calcification. There is normal flow-void signal ?? seen in major cerebral vasculature. There is mild mucoperiosteal ?? thickening left maxillary sinus. Rest of the paranasal sinuses and ?? mastoid air cells are well-aerated. Prominent right vestibular duct is ?? seen in the temporal lobe measuring 1.2 mm, normal thickness. The ?? cervical-medullary junction is normal. ? MR/MR head/brain wo con ?? IMPRESSION: ?? No acute intracranial process seen. ? Chronic inflammatory process left maxillary sinus. ? Electronically signed by: ??Antoni Sanches MD ??08/29/2024 04:41 PM EST RP ? Dictated By: ?Antoni Sanches MD ? Signed By: ?<Electronically signed by Antoni Sanches MD in OV> ?08/29/24 1641 ? DD/ 1241 ? TD/TT: 08/29/24 1505 ? Glass Beveler: MSM ? Procedure Note Urszula, Image - 08/29/2024 [place] [address] Magnetic Resonance Report Signed Patient: Elie Brown#: [id number] : 2Acct:[id number] Age/Sex: 64 / MADM Date: 08/29/24 Loc: HO.ED Attending Dr: Ordering Physician: Evangelista Song MD Date of Service: 08/29/24 Procedure(s): MR head/brain wo con Accession Number(s): [id number] cc: Evangelista Song MD; Kenna Swift MD EXAMINATION: MR BRAIN WITHOUT CONTRAST CLINICAL INFORMATION: Dizziness. Question cerebellar CVA. COMPARISON: CT brain 08/29/2024. TECHNIQUE: MRI of the brain was obtained using routine sequences without contrast. FINDINGS: There is no restricted diffusion seen to suspect any acute ischemic changes in supra or infratentorial space. There are punctate T2 foci in the deep white matter of bilateral frontal lobes without edema. The dorsey to white matter differentiation is maintained normal. No magnetic susceptibility artifact seen to suspect any acute or chronic hemorrhagic products or calcification. There is normal flow-void signal seen in major cerebral vasculature. There is mild mucoperiosteal thickening left maxillary sinus. Rest of the paranasal sinuses and mastoid air cells are well-aerated. Prominent right vestibular duct is seen in the temporal lobe measuring 1.2 mm, normal thickness. The cervical-medullary junction is normal. MR/MR head/brain wo con IMPRESSION: No acute intracranial process seen. Chronic inflammatory process left maxillary sinus. Electronically signed by: Antoni Sanches MD 08/29/2024 04:41 PM EST RP Dictated By: Antoni Sanches MD Signed By: <Electronically signed by Antoni Sanches MD in OV> 08/29/24 1641 DD/ 1241 TD/TT: 08/29/24 1505 Glass Beveler: [facility] External Provider IMG MRI PROCEDURES Final Result * CT Head w/o Contrast (08/29/2024 9:55 AM EST) Anatomical Region Laterality Modality Head, Neck Computed Tomogra phy 08/29/2024 9:55 AM EST Narrative 08/29/2024 11:03 AM EST ? [facility] ?[address] ?[place] [address] ? CT Scan Report ? Signed ? Patient: Bigio Desir,Sigifredo ?MR#: [id number] ?? [id number] ? : 1960 ?Acct:[id number] ? Age/Sex: 64 / M ?ADM Date: 01/13/25 ? Loc: HO.ED ? Attending Dr: ? Ordering Physician: Evangelista Song MD ?? Date of Service: 08/29/24 ?? Procedure(s): CT head/brain wo IV con ?? Accession Number(s): [id number] ? cc: Evangelista Song MD; Kenna Swift MD ? Report Number: ?? [id number]: Total DLP = ??790.00 mGy-cm ?? EXAMINATION: ?? CT HEAD WITHOUT CONTRAST ? CLINICAL INFORMATION: ?? ramirez ? COMPARISON: ?? CT dated May 29, 2000 and likely ? TECHNIQUE: ?? Contiguous axial imaging was performed from the skull base to vertex ?? without intravenous administration of contrast. ? This CT examination was performed using dose optimization techniques as ?? appropriate, variously including the following: ?? *Automated exposure control ?? *Adjustment of mA and/or kV according to patient size (this includes ?? techniques or standardized protocols for targeted exams where dose is ?? matched to indication/reason for exam; i.e. extremities or head) ?? *Use of iterative reconstruction technique ? DLP: ?? 790 mGy-cm ? FINDINGS: ?? Soft tissue contusion left parietal soft tissue scalp. ?? Bony calvarium is intact. ?? Skull base is intact. ?? No acute intracranial hemorrhage, mass effect, midline shift, ?? hydrocephalus or herniation. ?? Sneed-white matter differentiation is normal. ?? Posterior cranial fossa contents demonstrated no acute intracranial ?? hemorrhage or mass effect. ?? Prominence of the extra-axial CSF spaces along the intracranial ?? convexities with prominence of the extra-axial cerebral sulci and ?? ventricles likely central volume loss. ?? Calcified plaques in the cavernous supracavernous segments both ICA. ?? No air-fluid levels in the included sinuses. Tympanic cavities and ?? mastoid cells are aerated. ? CT/CT head/brain wo IV con ?? IMPRESSION: ?? No acute fracture, bony calvarium. ?? No acute intracranial hemorrhage. ?? Stable brain. ?? Mild Global cerebral atrophy. ? Electronically signed by: ??Cleveland Downs MD ??08/29/2024 11:00 AM ?? EST RP ? Dictated By: ?Cleveland Grayson MD ? Signed By: ?<Electronically signed by Cleveland Puentes MD in OV> ? 08/29/24 1100 ? DD/ 0955 ? TD/TT: 08/29/24 1010 ? Glass Beveler: ? Procedure Note Urszula, Image - 08/29/[address] [address] [address] Scan Report Signed Patient: Elie Brown#: [id number] : 1960cct:[id number] Age/Sex: 64 / MADM Date: 08/29/24 Loc: HO.ED Attending Dr: Ordering Physician: Evangelista Song MD Date of Service: 08/29/24 Procedure(s): CT head/brain wo IV con Accession Number(s): [id number] cc: Evangelista Song MD; Kenna Swift MD Report Number: [id number]: Total DLP = 790.00 mGy-cm EXAMINATION: CT HEAD WITHOUT CONTRAST CLINICAL INFORMATION: ramirez COMPARISON: CT dated May 29, 2000 and likely TECHNIQUE: Contiguous axial imaging was performed from the skull base to vertex without intravenous administration of contrast. This CT examination was performed using dose optimization techniques as appropriate, variously including the following: *Automated exposure control *Adjustment of mA and/or kV according to patient size (this includes techniques or standardized protocols for targeted exams where dose is matched to indication/reason for exam; i.e. extremities or head) *Use of iterative reconstruction technique DLP: 790 mGy-cm FINDINGS: Soft tissue contusion left parietal soft tissue scalp. Bony calvarium is intact. Skull base is intact. No acute intracranial hemorrhage, mass effect, midline shift, hydrocephalus or herniation. Sneed-white matter differentiation is normal. Posterior cranial fossa contents demonstrated no acute intracranial hemorrhage or mass effect. Prominence of the extra-axial CSF spaces along the intracranial convexities with prominence of the extra-axial cerebral sulci and ventricles likely central volume loss. Calcified plaques in the cavernous supracavernous segments both ICA. No air-fluid levels in the included sinuses. Tympanic cavities and mastoid cells are aerated. CT/CT head/brain wo IV con IMPRESSION: No acute fracture, bony calvarium. No acute intracranial hemorrhage. Stable brain. Mild Global cerebral atrophy. Electronically signed by: Cleveland Downs MD 08/29/2024 11:00 AM [facility] Dictated By: Cleveland Grayson MD Signed By: <Electronically signed by Cleveland Puentes MDin OV> 08/29/24 1100 DD/ 0955 TD/TT: 08/29/24 1010 Glass Beveler: [facility] External Provider IMG CT PROCEDURES Edited Result - Final * (ABNORMAL) POCT Glucose (08/29/2024 8:59 AM EST) Glucose Blood, POC 308(A) 60 - 200 mg/dL Blood Capillary blood specimen / Unknown 08/29/2024 8:59 AM EST Result [facility] Yunior Bonner MD POINT OF CARE TEST ENTER/ED IT ORDERABLES Final Result * (ABNORMAL) Hm Colonoscopy (09/10/2023) Colonoscopy Abnormal(A ) Normal Historical Provider HEALTH MAINTENANCE Final Result * Hepatitis C Antibody with Reflex to HCV, RNA, Quantitative, Real-Time PCR (01/22/2023 11:24 AM EDT) Hepatitis C Antibody NON-REACT LUCERO NON-REACT LUCERO [facility] Index 0.04 <1.00 bizk[employer]it Comment: HCV antibody was non-reactive. There is no laboratory evidence of HCV infection. In most cases, no further action is required. However, if recent HCV exposure is suspected, a test for HCV RNA (test code 47332) is suggested. For additional information please refer to http://education.HiringBoss.YouMail/faq/HYP47z0 (This link is being provided for informational/ educational purposes only.) Blood Venous blood specimen / Unknown 01/22/2023 11:24 AM EDT 01/22/2023 11:25 AM EDT Narrative [facility] - 01/23/2023 6:18 PM EDT FASTING:NO FASTING: NO Kenna Swift MD LAB BLOOD ORDERABLES Final Resul t [facility] [address], [place] [address] [facility] [address] [place] [address] * HIV-1/2 Antigen and Antibodies, Fourth Generation, with Reflexes (01/22/2023 11:24 AM EDT) Pathologist [facility] HIV Antigen/Antibody, 4th Generation NON-REAC TIVE NON-REAC TIVE [employer] [place] [facility] Comment: HIV-1 antigen and HIV-1/HIV-2 antibodies were not detected. There is no laboratory evidence of HIV infection. PLEASE NOTE: This information has been disclosed to you from records whose confidentiality may be protected by state law. ??If your state requires such protection, then the state law prohibits you from making any further disclosure of the information without the specific written consent of the person to whom it pertains, or as otherwise permitted by law. A general authorization for the release of medical or other information is NOT sufficient for this purpose. ?? For additional information please refer to http://education.[employer]/faq/XHK460 (This link is being provided for informational/ educational purposes only.) The performance of this assay has not been clinically validated in patients less than 2 years old. Blood Venous blood specimen / Unknown 01/22/2023 11:24 AM EDT 01/22/2023 11:25 AM EDT Narrative [facility] - 01/23/2023 6:18 PM EDT FASTING:NO FASTING: NO us Kenna Swift MD LAB BLOOD ORDERABLES Final Resul t [facility] [address], [place] [address] [facility] [place] [facility] [address] [place] [address] * Lipid Panel with Reflex to Direct LDL (01/22/2023 11:22 AM EDT) [facility] Cholesterol, Total 154 <200 mg/dL [employer] [place] [facility] MD HDL Cholesterol 57 > OR = 40 mg/dL [employer] [place] [facility] MD Triglycerides 116 <150 mg/dL [facility] [place] [facility] MD LDL Cholesterol 77 mg/dL (calc) [facility] [place] [facility] MD Comment: Reference range: <100 Desirable range <100 mg/dL for primary prevention; ?? <70 mg/dL for patients with CHD or diabetic patients with > or = 2 CHD risk factors. LDL-C is now calculated using the Jesenia calculation, which is a validated novel method providing better accuracy than the Friedewald equation in the estimation of LDL-C. Tito SS et al. RUI. 2013;310(19): 1103-0773 (http://education.YumDots/faq/WTN250) Chol/HDLC Ratio 2.7 <5.0 (calc) [facility] [place] [facility] MD Non-HDL Cholesterol 97 <130 mg/dL (calc) [facility] [place] [facility] MD Comment: For patients with diabetes plus 1 major ASCVD risk factor, treating to a non-HDL-C goal of <100 mg/dL (LDL-C of <70 mg/dL) is considered a therapeutic option. 01/22/2023 11:2 2 AM EDT 01/22/2023 11:23 AM EDT Narrative [facility] - 01/23/2023 5:03 PM EDT FASTING:NO FASTING: NO Kenna Swift MD LAB BLOOD ORDERABLES Final Resul t [facility] [address], [place] [address] [employer] [place] [facility] MD [address] [place] [address] from Last 3 Months or Most Recently Relevant to Health Maintenance Insurance [facility] Care Teams Helicopter Crew Chief Relationship Specialty Start Date End Date Kenna Swift MD [address] [place] [phone] PCP - General Family Medicine 02/06/14 Jeet Freedman, EmilyD [address] [place] [phone] Pharmacist Internal Medicine 02/23/23
--- OUTSIDE RECORDS SUMMARY | 2024-09-20 08:35 | XMS_ITS | Encounter Summary ---
Author Organization [employer] Address [address] [facility] 7 [place] [address] Care Team Providers Care Truck Manager Name Role Phone Kenna Swift MD Primary Care Provider Jeet Freedman PharmD Unavailable [phone] Reason for Referral * Consultation (Routine) - Pending Review Specialty Diagnoses / Procedures Referred By Roland hinojosa Referred To Contact Behavioral Health Diagnoses Dizziness Fall, initial encounter Acute post-traumatic headache, not intractable Yunior Bonner MD [address] [place] [address] Phone: tel: fax: Referral ID Status Reason Start Date Expiration Date Visits Requested Visits Authorized [id number] Pending Review Specialty Services Required 08/29/2024 08/29/2025 1 1 Reason for Visit * Reason Comments Dizziness Encounter Details Date Type Department Care Team (Late st Contact Info) Description 08/29/2024 9:40 AM EST Office Visit [facility] [address] [address] Yunior Bonner MD [address] [place] [address] Dizziness (Primary Dx); Type 2 diabetes mellitus with hyperglycemia, with long-term current use of insulin ([facility]); Fall, initial encounter; Acute post-traumatic headache, not intractable Social History Tobacco Use Types Packs/Day Years [...] with others, in a hotel, in a fci, living outside on the street, on a [...] AM EDT documented as of this encounter Last Filed Vital Signs Vital Sign Reading Time Taken Comments Blood Pressure 152/87 08/29/2024 8:58 AM EST Pulse 98 08/29/2024 8:58 AM EST Temperature - - Respiratory Rate - - Oxygen Saturation 98% 08/29/2024 8:58 AM EST room air Inhaled Oxygen Concentration - - Weight - - Height - - Body Mass Index - - documented in this encounter Progress Notes * Yunior Bonner MD - 08/29/2024 9:40 AM EST Subjective Patient ID: Sigifredo Desir is a 64 y.o. male who presents for Dizziness. Dizziness Associated symptoms include headaches. Pertinent negatives include no chills, coughing, diaphoresis, fatigue or joint swelling. H/o dizziness for about a month after a fall. Presents here w/ severe headache and also fell in thestreet coming to the Office in hit the right side of his head. Patient Active Problem List Diagnosis Allergic rhinitis History of angioedema Chronic back pain Chronic recurrent major depressive disorder (CMS/HCC) Diabetic peripheral neuropathy ([facility]/HCC) Essential hypertension Mixed hyperlipidemia Moderate nonproliferative diabetic retinopathy ([facility]/HCC) Mood disorder ([facility]) Class 1 obesity Obstructive sleep apnea Tubular adenoma of colon Diabetes mellitus, type 2 ([facility]) Type 2 diabetes mellitus with microalbuminuria, with long-term current use of insulin ([facility]) Current Outpatient Medications on File Prior to Visit Medication Sig Dispense Refill Alcohol Swabs (Alcohol Prep) 70 % pads aspirin (Aspirin Low Dose) 81 MG chewable tablet TAKE 1 TABLET BY MOUTH AT BEDTIME (MASTIQUE) 90 tablet 3 atorvastatin (Lipitor) 40 MG tablet TAKE 1 TABLET BY MOUTH AT BEDTIME 90 tablet 3 Blood Pressure Monitor kit Use as directed daily 1 kit 0 buPROPion XL (Wellbutrin XL) 150 MG 24 hr tablet cholecalciferol (Vitamin D-3) 25 MCG tablet TAKE 1 TABLET BY MOUTH EVERY MORNING 90 tablet 3 Continuous Blood Gluc Appeals Writer (FreeStyle Anayeli 2 [place]) device Use as directed 1 each 1 Continuous Glucose Sensor (FreeStyle Anayeli 2 Sensor) misc Use as directed 2 each 11 cyanocobalamin (Vitamin B-12) 1000 MCG tablet TAKE 1 TABLET BY MOUTH EVERY MORNING 90 tablet 3 Easy Touch Pen [place] 31G X 8 MM misc Use once daily with Lantus 100 each 3 Farxiga 10 MG TAKE 1 TABLET BY MOUTH EVERY MORNING 90 tablet 3 gabapentin (Neurontin) 300 MG capsule TAKE 1 CAPSULE BY MOUTH THREE TIMES DAILY IN THE MORNING, EVENING, AND BEDTIME FOR PAIN 90 capsule 5 insulin aspart (NovoLOG FLEXPEN) 100 UNIT/ML pen Inject under the skin 3 times daily with meals as directed by sliding scale. (B-200=2 units, 201-250=4 units, 251-300= 6 units, 301-350= 8 units, 351-400= 10 units, >400 12 units and call MD) 15 mL 5 insulin degludec (Tresiba FlexTouch) 100 UNIT/ML injection INJECT 18 UNITS SUBCUTANEOUSLY ONCE DAILY 15 mL 2 ketorolac (Acular) 0.5 % ophthalmic solution PLACE 1 DROP IN THE RIGHT EYE TWICE DAILY losartan (Cozaar) 25 MG tablet TAKE 1 TABLET BY MOUTH EVERY MORNING 90 tablet 3 magnesium oxide (Mag-Ox) 400 (240 Mg) MG tablet TAKE 1 TABLET BY MOUTH EVERY MORNING meloxicam (Mobic) 7.5 MG tablet Take 1 tablet (7.5 mg) by mouth in the morning. 14 tablet 0 mirtazapine (Remeron) 15 MG tablet TAKE 1 TABLET BY MOUTH AT BEDTIME 30 tablet 5 Multiple Vitamin (Multivitamin) tablet TAKE 1 TABLET BY MOUTH EVERY MORNING WITH FOOD 100 tablet 3 Semaglutide, 2 MG/DOSE, (Ozempic, 2 MG/DOSE,) 8 MG/3ML solution pen-injector Inject 2 mg under the skin 1 (one) time per week. 9 mL 1 sertraline (Zoloft) 100 MG tablet traZODone (Desyrel) 100 MG tablet TAKE 1 TABLET BY MOUTH AT BEDTIME NEEDED FOR SLEEP TRUEplus Lancets 33G [facility] [place] No current facility-administered medications on file prior to visit. Review of Systems Constitutional: Negative for appetite change, chills, diaphoresis and fatigue. Respiratory: Negative for cough, choking and shortness of breath. Cardiovascular: Negative for leg swelling. Gastrointestinal: Negative for anal bleeding, blood in stool and constipation. Musculoskeletal: Negative for gait problem and joint swelling. Neurological: Positive for dizziness, light-headedness and headaches. Objective BP (!) 152/87 (BP Location: Right arm, Patient Position: Sitting, BP Cuff Size: Adult) Pulse 98 SpO2 98% Comment: room air Physical Exam Cardiovascular: Rate and Rhythm: Normal rate. Pulmonary: Effort: Pulmonary effort is normal. Skin: Comments: Bruise of the left temporal area of the scalp. Neurological: Mental Status: He is alert. Comments: Somnolent during the eval. Assessment/Plan Diagnoses and all orders for this visit: Dizziness - Referral to Hospitalization Screening; Future Type 2 diabetes mellitus with hyperglycemia, with long-term current use of insulin ([facility]) Comments: Uncontrolled ED eval because of the recent fall today. Orders: - POCT Glucose Fall, initial encounter - Referral to Hospitalization Screening; Future Acute post-traumatic headache, not intractable Comments: ED evaluation. Orders: - Referral to Hospitalization Screening; Future documented in this encounter Plan of Treatment Upcoming Encounters Date Type Department Care Team (Late st Contact Info) Description 10/11/2024 1:15 PM EST Office Visit [facility] [address] [place] [phone] Kenna Swift MD [address] [place] [address] 11/11/2024 11:00 AM EDT Medication Management [facility] [address] [place] [phone] Jeet Freedman PharmD [address] [place] [phone] Scheduled Referrals Name Type Priority Associated Diagnoses Order Schedule Referral to Hospitalization Screening Outpatient Referral Routine Dizziness Fall, initial encounter Acute post-traumatic headache, not intractable Expected: 08/29/2024 (Approximate), Expires: 08/29/2025 documented as of this encounter Goals Goal Patient Goal Type Associated Problems Recent Progress Patient-Stated? Author Blood Pressure < 140/90 Blood Pressure 122/68(2024 1:57 PM EST) No Jeet Freedman PharmD Hemoglobin A1c < 7 Result Component 7.4( 1:54 PM EST) No Jeet Freedman PharmD documented as of this encounter Procedures Procedure Name Priority Date/Time Associated Diagnosis Comments POCT GLUCOSE Routine 08/29/2024 8:59 AM EST Type 2 diabetes mellitus with hyperglycemia, with long-term current use of insulin ([facility]) documented in this encounter Results * (ABNORMAL) POCT Glucose (08/29/2024 8:59 AM EST) Glucose Blood, POC 308(A) 60 - 200 mg/dL Blood Capillary blood specimen / Unknown 08/29/2024 8:59 AM EST us Yunior Bonner MD POINT OF CARE TEST ENTER/ED IT ORDERABLES Final Result documented in this encounter Visit Diagnoses Diagnosis Dizziness- Primary Dizziness and giddiness Type 2 diabetes mellitus with hyperglycemia, with long-term current use of insulin ([facility]) Fall, initial encounter Acute post-traumatic headache, not intractable documented in this encounter Additional Health Concerns Assessment Noted Time PHQ-9 Depression Total Score: 17 023 5:26 PM EST documented as of this encounter Care Teams Truck Manager Relationship Specialty Start Date End Date Kenna Swift MD [address] [place] [phone] PCP - General Family Medicine 02/06/14 Jeet Freedman, EmilyD [address] [place] [phone] Pharmacist Internal Medicine 02/23/23 documented as of this encounter
--- OUTSIDE RECORDS SUMMARY | 2024-09-20 08:36 | XMS_ITS | Encounter Summary ---
Author Organization [employer] Address [address] [facility] 7t [place] [address] Care Team Providers Care Study Lead Name Role Phone Kenna Swift MD Primary Care Provider [phone] Jeet Freedman PharmD Unavailable [phone] Reason for Visit * Reason Comments Med Refill Encounter Details Date Type Department Care Team (Late st Contact Info) Description 08/20/2024 Refill [facility] [address] [place], [place] [phone] Jeet Freedman, PharmD [address] [place], [place] [phone] Type 2 diabetes mellitus with hyperglycemia, with long-term current use of insulin ([facility]) Social History Tobacco Use Types Packs/Day [...] with others, in a hotel, in a group home, living outside on the street, on a [...] Description 10/11/2024 1:15 PM EST Office Visit [facility] [address] [place] [phone] Kenna Swift MD [address] [place] [address] 11/11/2024 11:00 AM EDT Medication Management [facility] [address] [place] [phone] Jeet Freedman PharmD [address] [place] [phone] documented as of this encounter Goals Goal [...] hyperglycemia, with long-term current use of insulin ([facility]) documented in this encounter Additional Health Concerns Assessment Noted Time PHQ-9 Depression Total Score: 17 023 5:26 PM EST documented as of this encounter Care Teams Study Lead Relationship Specialty Start Date End Date Kenna Swift MD [address] [place] [address] PCP - General Family Medicine 02/06/14 Jeet Freedman, Cate [address] [place] [address] Pharmacist Internal Medicine 02/23/23 documented as of this encounter
--- OUTSIDE RECORDS SUMMARY | 2024-09-20 08:36 | XMS_ITS | Encounter Summary ---
Author Organization [employer] Address [address] [facility] 7 [place] [address] Care Team Providers Care Landscape Specialist Name Role Phone Kenna Swift MD Primary Care Provider [phone] Jeet Freedman PharmD Unavailable Reason for Referral * Consultation (Routine) - Authorized Specialty Diagnoses / Procedures Referred By Contac t Referred To Contact Pharmacy Diagnoses Type 2 diabetes mellitus with hyperglycemia, with long-term current use of insulin (CMS/HCC) Kenna Swift MD [address] [place] [address] Phone: tel: fax: Referral ID Status Reason Start Date Expiration Date Visits Requested Visits Authorized [id number] Authorized Consult and Treat 08/19/2024 08/19/2025 6 6 Encounter Details Date Type Department Care Team (Late st Contact Info) Description 08/19/2024 Orders Only [facility] [address] [place] [address] Kenna Swift MD [address] [place] [address] Type 2 diabetes mellitus with hyperglycemia, with long-term current use of insulin (CMS/HCC) (Primary Dx) Social History Tobacco Use Types Packs/Day Years [...] with others, in a hotel, in a long term, living outside on the street, on a [...] 10/11/2024 1:15 PM EST Office Visit [facility] [address] [place] [address] Kenna Swift MD [address] [place] [address] 11/11/2024 11:00 AM EDT Medication Management [facility] [address] [place] [address] Jeet Freedman, EmilyD [address] [place] [address] Scheduled Referrals Name Type Priority Associated Diagnoses Orde r Schedule Referral to Pharmacy CDTM Outpatient Referral Routine Type 2 diabetes mellitus with hyperglycemia, with long-term current use of insulin ([facility]) Ordered: 08/19/2024 documented as of this encounter Goals Goal Patient Goal Type Associated Problems Recent Progress Patient-Stated? Author Blood Pressure < 140/90 Blood Pressure 122/68(2024 1:57 PM EST) No Jeet Freedman PharmD Hemoglobin A1c < 7 Result Component 7.4( 1:54 PM EST) No Jeet Freedman PharmD documented as of this encounter Procedures Procedure Name Priority Date/Time Associated Diagnosis Comments MR BRAIN WO CONTRAST Routine 08/29/2024 12:[address] HEAD WO CONTRAST Routine 08/29/2024 9 :55 AM EST documented in this encounter Results * MR Brain w/o Contrast (08/29/2024 12:41 PM EST) Anatomical Region Laterality Modality Brain Magnetic Resonan ce 08/29/2024 12:4 1 PM EST Narrative 08/29/2024 4:44 PM EST ? [facility] ?[address] ?[place] [address] ? Magnetic Resonance Report ? Signed ? Patient: Sigifredo Brown ?MR#: [id number] ?? [id number] ? : 1960 ?Acct:[id number] ? Age/Sex: 64 / M ?ADM Date: 08/29/24 ? Loc: HO.ED ? Attending Dr: ? Ordering Physician: Evangelista Song MD ?? Date of Service: 08/29/24 ?? Procedure(s): MR head/brain wo con ?? Accession Number(s): [id number] ? cc: Evangelista Song MD; Kenna Swift [...] DD/ 1241 ? TD/TT: 08/29/24 1505 ? Milking System Installer: MSM ? Procedure Note Donadali, Image - 08/29/2024 [place] [address] Magnetic Resonance Report Signed Patient: Elie Brown#: [id number] : 2Acct:[id number] Age/Sex: 64 / MADM Date: 08/29/24 Loc: HO.ED Attending Dr: Ordering Physician: Evangelista Song MD Date of Service: 08/29/24 Procedure(s): MR head/brain wo con Accession Number(s): [id number] cc: Evangelista Song MD; Kenna Swift MD [...] 08/29/24 1641 DD/ 1241 TD/TT: 08/29/24 1505 Milking System Installer: [facility] External Provider IMG MRI PROCEDURES Final Result * CT Head w/o Contrast (08/29/2024 9:55 AM EST) Anatomical Region Laterality Modality Head, Neck Computed Tomogra phy 08/29/2024 9:55 AM EST Narrative 08/29/2024 11:03 AM EST ? [facility] ?[address] ?[place] [address] ? CT Scan Report ? Signed ? Patient: Christianne Desir,Sigifredo ?MR#: [id number] ?? [id number] ? : 1960 ?Acct:[id number] ? Age/Sex: 64 / M ?ADM Date: //25 ? Loc: HO.ED ? Attending Dr: ? Ordering Physician: Evangelista Song MD ?? Date of Service: 08/29/24 ?? Procedure(s): CT head/brain wo IV con ?? Accession Number(s): [id number] ? cc: Evangelista Song MD; Kenna Swift MD ? Report Number: ?? [id number]: Total DLP = ??790.00 mGy-cm ?? EXAMINATION: [...] DD/ 0955 ? TD/TT: 08/29/24 1010 ? Milking System Installer: ? Procedure Note Urszula, Tanya - 08/29/[address] [address] [address] Scan Report Signed Patient: Elie Brown#: [id number] : 2Acct:[id number] Age/Sex: 64 / MADM Date: 08/29/24 Loc: HO.ED Attending Dr: Ordering Physician: Evangelista Song MD Date of Service: 08/29/24 Procedure(s): CT head/brain wo IV con Accession Number(s): [id number] cc: Evangelista Song MD; Kenna Swift MD Report Number: [id number]: Total DLP = 790.00 mGy-cm EXAMINATION: CT HEAD WITHOUT CONTRAST CLINICAL INFORMATION: ramriez COMPARISON: CT dated May 29, 2000 and [...] by: Cleveland Downs MD 08/29/2024 11:00 AM EST Dictated By: Cleveland Grayson MD Signed By: <Electronically signed by Cleveland Puentes MDin OV> 08/29/24 1100 DD/ 0955 TD/TT: 08/29/24 1010 Milking System Installer: [facility] External Provider IMG CT PROCEDURES Edited Result - Final documented in this encounter Visit Diagnoses Diagnosis Type 2 diabetes mellitus with hyperglycemia, with long-term current use of insulin ([facility])- Primary documented in this encounter Additional Health Concerns Assessment Noted Time PHQ-9 Depression Total Score: 17 023 5:26 PM EST documented as of this encounter Care Teams Landscape Specialist Relationship Specialty Start Date End Date Kenna Swift MD [address] [place] [address] PCP - General Family Medicine 02/06/14 Jeet Freedman, EmilyD [address] [place] [phone] Pharmacist Internal Medicine 02/23/23 documented as of this encounter
--- NOTE | 2024-09-20 10:08 | MHC.OFFVIS ---
Vital Signs 09/20/24 10:09 Height 5 ft 9 in Weight 219 lb BMI 32.3 Intake Visit Reasons: ELAINE Follow Up Intake Note: Patient presents for ELAINE follow up Allergies lisinopril [LISINOPRIL] Allergy (Severe, Verified 09/20/24 10:10) ANAPHYLAXIS shrimp [SHRIMP] Allergy (Severe, Verified 09/20/24 10:10) ANAPHYLAXIS metformin Allergy (Verified 09/20/24 10:10) Diarrhea rosiglitazone Allergy (Verified 09/20/24 10:10) Diarrhea MELON, HONEYDEW Allergy (Severe, Uncoded 09/20/24 10:10) ANAPHYLAXIS HPI Comments Details: 63 y/o male patient presents for follow up of sleep study. occupational health and safety adviser CRYSTAL Arzola. The PSG sleep study result did not meet the criteria of sleep apnea. The AHI was 4 and oxygen otilia was 82%. There were some periodic limb movement, but only some were associated with arousals. He snores loudly and wakes himself up at night, and he has tried nose strips and mouth guards which are ineffective. He goes to bed at 9pm and wakes up at 6am, has 2 bathroom breaks, but multiple arousals throughout the night. He tosses and turns and gets only 3 hours of sleep a night. He has terrible anxiety and his mood is irritable because he is tired daily. He was diagnosed with ELAINE in 2002 and had been using CPAP, however his machine is broken and is not able to get a restful night of sleep. He walks daily as he is a diabetic on insulin and he motivated to lose weight, he is carefully monitoring his diet. [facility] Medical History Colon cancer screening Diabetes mellitus type 2 in obese Surgical History H/O gastric sleeve Family History Father Coronary artery disease Hypertension Mother Diabetes mellitus Cancer Family/Other Prostate cancer Social History Alcohol intake: current Patient Tobacco Use Status: Never used Tobacco Review of Systems Const All systems reviewed & are unremarkable except as noted in HPI and below Physical Exam Vital Signs: BMI result Body Mass Index 32.3 No acute distress. Const Other: Awake alert oriented x3 General: cooperative Nutritional Appearance: average body habitus Orientation/consciousness: patient oriented x3 HEENT Head: Yes normal to inspection General nose exam: Normal external nose present Face and sinus: Yes normal facial exam and Yes face symmetric Eyes Pupils: Equal, round and reactive pupils present Neck Neck: Yes full ROM Resp Effort & Inspection: normal respiratory effort and able to speak in complete sentences Neuro General: patient oriented x3 and moves all extremities Cranial nerves: Yes CN's II-XII intact bilaterally, Yes Facial sensation intact/muscles of mastication intact, Yes Equal, round and reactive pupils present, Yes Normal accommodation reflex present, Yes Bilaterally intact EOM present, Yes Nystagmus not present, Yes Normal facial strength present, Yes Midline tongue present, Yes Ability to bilaterally rotate head present and Yes Ability to bilaterally elevate shoulders present Gait exam (Neuro): Normal gait present Motor exam (neuro): 5/5 motor strength present throughout and Normal motor muscle tone present throughout Deep tendon reflexes (DTR's): Right triceps reflex intensity grade: 2+, Left triceps reflex intensity grade: 2+, Rt Biceps (C5, C6): 2+, Left biceps reflex intensity grade: 2+, Right brachioradialis reflex intensity grade: 2+, Left brachioradialis reflex intensity grade: 2+, Right patellar reflex intensity grade: 2+ and Left patellar reflex intensity grade: 2+ Results Reviewed Results Reviewed: Labs PSG AHI is 4 and O2 Otilia 84% arousals due to some mild limb movements Assessment & Plan Assessment & Plan (1) Restless legs syndrome: Code(s): G25.81 - Restless legs syndrome Category: Medical (2) Anxiety and depression: Code(s): F41.9 - Anxiety disorder, unspecified; F32.A - Depression, unspecified Category: Medical (3) ELAINE on CPAP: Code(s): G47.33 - Obstructive sleep apnea (adult) (pediatric) Category: Medical Plan Start CPAP as patient has a h/o fragmented sleep and is exhausted when unable to use his CPAP. Anxiety I will increase Buproprion to 150mg PO BID. RLS : continue with Gabapentin 300mg PO TID Sleep Hygiene : Sleep in a dark and cool environment temperatures should be lower than 68 degrees, no devices in bed, limit fluids two hours prior to bedtime, and no caffeine 6 hours prior to bedtime. Magnesium 400mg PO at night daily, and Vitamin D3 daily 25mcg. Monitor and control Blood Sugars. 09/25/24 Addendum by FREDDY Mathews: Reviewed visit and chart. Check fasting labs to assess for common etiologies of Restless Legs and Periodic Limb Movements of Sleep seen on previous 2022 In-Lab PSG, as these may symptoms may be negatively impacting sleep quality and daytime wakefulness. Check in with pt in 4 weeks to assess tolerance of increasing Buproprion to bid- specifically to ensure this has not worsened RLS/PLMS/sleep. FREDDY Mathews Orders: Orders Complete Blood Count Auto Diff Today D64.9 - Anemia, unspecified, E11.69 - Type 2 diabetes mellitus with other specified complication, E66.9 - Obesity, unspecified, F32.A - Depression, unspecified, F41.9 - Anxiety disorder, unspecified, G25.81 - Restless legs syndrome Homocysteine Today D64.9 - Anemia, unspecified, E11.69 - Type 2 diabetes mellitus with other specified complication, E66.9 - Obesity, unspecified, F32.A - Depression, unspecified, F41.9 - Anxiety disorder, unspecified, G25.81 - Restless legs syndrome Ferritin Today D64.9 - Anemia, unspecified, E11.69 - Type 2 diabetes mellitus with other specified complication, E66.9 - Obesity, unspecified, F32.A - Depression, unspecified, F41.9 - Anxiety disorder, unspecified, G25.81 - Restless legs syndrome Comprehensive Met. Panel Today D64.9 - Anemia, unspecified, E11.69 - Type 2 diabetes mellitus with other specified complication, E66.9 - Obesity, unspecified, F32.A - Depression, unspecified, F41.9 - Anxiety disorder, unspecified, G25.81 - Restless legs syndrome Methylmalonic Acid Today D64.9 - Anemia, unspecified, E11.69 - Type 2 diabetes mellitus with other specified complication, E66.9 - Obesity, unspecified, F32.A - Depression, unspecified, F41.9 - Anxiety disorder, unspecified, G25.81 - Restless legs syndrome TSH reflex Free T4 Today D64.9 - Anemia, unspecified, E11.69 - Type 2 diabetes mellitus with other specified complication, E66.9 - Obesity, unspecified, F32.A - Depression, unspecified, F41.9 - Anxiety disorder, unspecified, G25.81 - Restless legs syndrome Vitamin B12 and Folate Today D64.9 - Anemia, unspecified, E11.69 - Type 2 diabetes mellitus with other specified complication, E66.9 - Obesity, unspecified, F32.A - Depression, unspecified, F41.9 - Anxiety disorder, unspecified, G25.81 - Restless legs syndrome IRON PROFILE Today D64.9 - Anemia, unspecified, E11.69 - Type 2 diabetes mellitus with other specified complication, E66.9 - Obesity, unspecified, F32.A - Depression, unspecified, F41.9 - Anxiety disorder, unspecified, G25.81 - Restless legs syndrome Hemoglobin A1c Today D64.9 - Anemia, unspecified, E11.69 - Type 2 diabetes mellitus with other specified complication, E66.9 - Obesity, unspecified, F32.A - Depression, unspecified, F41.9 - Anxiety disorder, unspecified, G25.81 - Restless legs syndrome Coding Level of Care Code Est Pt Level 4 (47767) Diagnoses Restless legs syndrome G25.81 Anxiety and depression F41.9; F32.A ELAINE on CPAP G47.33 Time Spent (min) 30
[2024-09-20 10:09] VITALS: BMI 32.3
== END 2024-09-20 10:54 | disposition home or self-care (01) ==
PROVIDERS: PCP Family Medicine; Visit Provider Physician Assistant Medical
DX: G25.81 Restless legs syndrome (principal); F41.9 Anxiety disorder, unspecified; F32.A Depression, unspecified; G47.33 Obstructive sleep apnea (adult) (pediatric)
CPT/HCPCS: 99214

== ENCOUNTER → 2024-09-20 08:20 | Outpatient (BNVA) | payer OTHER, SELFPAY | PROVIDERS: PCP Family Medicine; Visit Provider Nurse Practitioner Family | DX: G47.33 Obstructive sleep apnea (adult) (pediatric) (principal); G25.81 Restless legs syndrome; F41.9 Anxiety disorder, unspecified; F32.A Depression, unspecified; Z99.89 Dependence on other enabling machines and devices | CPT/HCPCS: 99212 ==

== ENCOUNTER 2024-10-06 09:21 | Outpatient (REF) | payer OTHER, SELFPAY ==
--- OUTSIDE RECORDS SUMMARY | 2024-10-06 10:05 | XMS_ITS | Clinical Summary ---
Author Organization elicit [facility] Address [address] [facility] 7t [place] [address] Care Team Providers Care Technology Architect Name Role Phone Kenna Swift MD Primary Care Provider [phone] Jeet Freedman PharmD Unavailable [phone] Allergies Active Allergy Reactions Criticality Noted Date [...] THE RIGHT EYE TWICE DAILY 023 Active Blood Pressure Monitor kitIndications: Essential hypertension Use as directed daily 1 kit 023 Active magnesium oxide (Mag-Ox) 400 (240 Mg) MG tablet TAKE 1 TABLET BY MOUTH EVERY MORNING 023 Active insulin aspart (NovoLOG FLEXPEN) 100 UNIT/ML penIndications: Type 2 diabetes mellitus with hyperglycemia, with long-term current use of insulin ([facility]) Inject under the skin 3 times daily with meals as directed by sliding scale. (B-200=2 units, 201-250=4 units, 251-300= 6 units, 301-350= 8 units, 351-400= 10 units, >400 12 units and call MD) 15 mL 5 024 Active losartan (Cozaar) 25 MG tabletIndicatio ns:Essential hypertension TAKE 1 TABLET BY MOUTH EVERY MORNING 90 tablet 3 024 Active mirtazapine (Remeron) 15 MG tabletIndicatio ns:Psychophysio logical insomnia TAKE 1 TABLET BY MOUTH AT BEDTIME 30 tablet 5 024 Active gabapentin (Neurontin) 300 MG capsule TAKE 1 CAPSULE BY MOUTH THREE TIMES DAILY IN THE MORNING, EVENING, AND BEDTIME FOR PAIN 90 capsule 5 024 Active aspirin (Aspirin Low Dose) 81 MG chewable tablet TAKE 1 TABLET BY MOUTH AT BEDTIME (MASTIQUE) 90 tablet 3 024 Active cyanocobalamin (Vitamin B-12) 1000 MCG tablet TAKE 1 TABLET BY MOUTH EVERY MORNING 90 tablet 3 024 Active cholecalciferol (Vitamin D-3) 25 MCG tablet TAKE 1 TABLET BY MOUTH EVERY MORNING 90 tablet 3 024 Active Continuous Glucose Senior Budget Analyst (FreeStyle Anayeli 3 [place]) deviceIndicatio ns:Type 2 diabetes mellitus with hyperglycemia, with long-term current use of insulin (CMS/[facility]) 1 Device Use as directed. Scan sensor up to 4 times daily 1 each 025 Active Continuous Glucose Sensor (FreeStyle Anayeli 3 Plus Sensor) miscIndications :Type 2 diabetes mellitus with hyperglycemia, with long-term current use of insulin (CMS/[facility]) Apply 1 Device topically every 15 days. 2 each 025 Active semaglutide (Ozempic, 1 MG/DOSE,) 4 MG/3ML solution pen-injectorInd ications:Type 2 diabetes mellitus with hyperglycemia, with long-term current use of insulin (CMS/[facility]) Inject 1 mg under the skin once weekly as directed 3 mL 5 025 Active Blood Glucose Monitoring Suppl (FreeStyle [place] Lite) w/Device kitIndications: Type 2 diabetes mellitus with hyperglycemia, with long-term current use of insulin (CMS/HCC) Use to test blood sugar 3 times daily 1 kit 025 Active Easy Touch Pen Isabella 31G X 8 MM misc USE DIRECTED [...] hyperglycemia, with long-term current use of insulin ([facility]) INJECT 24 UNITS SUBCUTANEOUSLY ONCE DAILY 15 mL 025 Active traZODone (Desyrel) 150 MG tablet Take 150 mg by mouth if needed at bedtime for sleep. 025 Active glucose blood (FREESTYLE LITE) test stripIndication s:Type 2 diabetes mellitus with hyperglycemia, with long-term current use of insulin ([facility]) TEST BLOOD SUGAR THREE TIMES DAILY 100 strip 3 Active TRUEplus Lancets 33G miscIndications :Type 2 diabetes mellitus with hyperglycemia, with long-term current use of insulin ([facility]) TEST BLOOD SUGAR THREE TIMES DAILY 100 each 3 025 Active meloxicam (Mobic) 7.5 MG tablet Take 1 tablet (7.5 mg) by mouth in the morning. 14 tablet 023 2024 Discontinued(M ed list cleanup (will not trigger notification to Pharmacy)) traZODone (Desyrel) 100 MG tablet TAKE 1 TABLET BY MOUTH AT BEDTIME NEEDED FOR SLEEP 023 2024 Discontinued(D ose adjustment) insulin degludec (Tresiba FlexTouch) 100 UNIT/ML injectionIndica tions:Type 2 diabetes mellitus with hyperglycemia, with long-term current use of insulin ([facility]) INJECT 18 UNITS SUBCUTANEOUSLY ONCE DAILY 15 mL 2 025 2024 Discontinued(R eorder (will not trigger notification to Pharmacy)) glucose blood (FreeStyle Precision Leander Test) test stripIndication s:Type 2 diabetes mellitus with hyperglycemia, with long-term current use of insulin ([facility]) Use to check blood sugar up to three times daily as needed for hypoglycemia or sensor failure. 100 each 11 025 2024 Discontinued glucose blood (FREESTYLE LITE) test stripIndication s:Type 2 diabetes mellitus with hyperglycemia, with long-term current use of insulin ([facility]) Use to test blood sugar 3 times daily 100 each 025 2024 Discontinued(M ed list cleanup (will not trigger notification to Pharmacy)) Lancets miscIndications :Type 2 diabetes mellitus with hyperglycemia, with long-term current use of insulin ([facility]) Use to test blood sugar 3 times daily 100 each 025 2024 Discontinued Active Problems Problem Noted Date Diagnosed Date [...] eye exam: Non-proliferative DM retinopathy. Following with [facility] Eye care, next appt in February 2023 [...] eye exam: Non-proliferative DM retinopathy. Following with [facility] Eye care, next appt in February 2023 [...] eye exam: Non-proliferative DM retinopathy. Following with [facility] Eye care, next appt in February 2023 [...] eye exam: Non-proliferative DM retinopathy. Following with [facility] Eye care, next appt in February 2023 [...] eye exam: Non-proliferative DM retinopathy. Following with [facility] Eye care, next appt in February 2023 [...] - Dr. Suggs. -therapist - Giselle at [facility]. -continue: Bupropion, Zoloft, Ambien. --patient also has therapeutic animal Assessment & Plan (07/07/2023 3:12 PM EST): previously diagnosed as major depression. -psychiatrist - Dr. Suggs. -therapist - Giselle at [facility]. -continue: Bupropion, Zoloft, Ambien. --patient also has therapeutic animal Assessment & Plan (01/22/2023 11:41 AM EDT): previously diagnosed as major depression. -psychiatrist - Dr. Suggs. -therapist - Giselle at [facility]. -continue: Bupropion, Zoloft, Ambien. --patient also has therapeutic animal Diabetic peripheral neuropathy 12/13/2015 Assessment & Plan (07/07/2023 3:03 PM EST): Confirmed Peripheral Neuropathy from NCT in 2017 [...] - Dr. Suggs. -therapist - Giselle at [facility]. -continue: Bupropion, Zoloft, Ambien. --patient also has therapeutic animal Assessment & Plan (07/07/2023 3:15 PM EST): previously diagnosed as major depression. -psychiatrist - Dr. Suggs. -therapist - Giselle at [facility]. -continue: Bupropion, Zoloft, Ambien. --patient also has therapeutic animal Essential hypertension 05/22/2015 Assessment & Plan (10/25/2023 12:49 PM EDT): -Previously on Lisinopril for Microalbuminuria, discontinued when developed angioedema. -Goal BP <140/90 per JNC-8; < 130/80 per ACC/AHA guideline -BP not at goal -Co-managed with our pharmacist through [facility], pt is attending appts. -Continue Losartan 25 [...] at goal -Co-managed with our pharmacist through [facility], pt is attending appts. -Continue Losartan 25 [...] 5:48 AM EDT): - pt was given [facility] GI number to call to schedule a colonoscopy. Obstructive sleep apnea 05/10/2012 Assessment & Plan (10/25/2023 12:49 PM EDT): -Previously followed by [facility] sleep medicine clinic, last seen in Apr 2021 -Sleep study 01/15/18, which showed mild ELAINE. Recommended AutoCPAP 6-15 cm H2O. If pt has nasal congestion, ipratropium 0.03% before bedtime was recommended -Does not have a CPAP machine currently, prescribed CPAP machine in January 2023. -Currently following with [facility] sleep medicine clinic on 06/29/23. -Sleep study on 07/27/23 did not meet the criteria for ELAINE -Follow up with Sleep medicine clinic provider for further recommendation Assessment & Plan (07/07/2023 3:02 PM EST): -Previously followed by [facility] sleep medicine clinic, last seen in Apr [...] (04/24/2023 5:40 AM EDT): -Previously followed by [facility] sleep medicine clinic, last seen in Apr [...] (02/02/2023 12:12 PM EDT): -Previously followed by [facility] sleep medicine clinic, last seen in Apr [...] EST): - Following with Dr. Azevedo at [facility] Eye care - Following with [facility] - anticipating a surgery Assessment & Plan (02/02/2023 12:19 PM EDT): - Following with Dr. Azevedo Resolved Problems Problem Noted Date Diagnosed Date Resolved Date Continuous opioid dependence 11/16/2014 07/02/2023 Encounters Date Type Department Care Team Description 10/05/2024 Telephone [facility] MED[facility] [address] [place] [address] Kenna Swift MD Chart Prep 09/28/2024 Refill [facility] [address] [place] [address] Jeet Freedman, PharmD Type 2 diabetes mellitus with hyperglycemia, with long-term current use of insulin (CMS/HCC) 09/26/2024 1:00 PM EST Telemedicine [facility] [address] [place] [address] Jeet Freedman, PharmD Type 2 diabetes mellitus with hyperglycemia, with long-term current use of insulin (CMS/HCC) (Primary Dx) 09/09/2024 Travel 09/04/2024 Refill [facility] [address] [place] [address] Kenna Swift MD Type 2 diabetes mellitus with hyperglycemia, with long-term current use of insulin (CMS/HCC); Dyslipidemia 09/02/2024 Refill [facility] [address] [place] [address] Kenna Swift MD 09/01/2024 Telephone [facility] [place] [address] Jeet Freedman, PharmD 08/30/2024 Telephone [facility] [place] [address] Jeet Freedman, PharmD 08/30/2024 Telephone [facility] [place] [address] Kenna Swift MD Medication Question 08/29/2024 9:40 AM EST Office Visit [facility] [place] [address] Yunior Bonner MD Dizziness (Primary Dx); Type 2 diabetes mellitus with hyperglycemia, with long-term current use of insulin ([facility]); Fall, initial encounter; Acute post-traumatic headache, not intractable 08/29/2024 Orders Only GENERIC EXTERNAL DATA DEPARTMENT Provider, Generic External Data 08/29/2024 Telephone [facility] [place] [address] Kenna Swift MD rapid responce 08/29/2024 Refill [facility] [place] [address] Jeet Freedman, EmilyD Type 2 diabetes mellitus with hyperglycemia, with long-term current use of insulin (CMS/HCC) 08/20/2024 Refill [facility] [place] [address] Jeet Freedman, Cate Type 2 diabetes mellitus with hyperglycemia, with long-term current use of insulin (CMS/HCC) 08/19/2024 Orders Only [facility] [place] [address] Kenna Swift MD Type 2 diabetes mellitus with hyperglycemia, with long-term current use of insulin (CMS/HCC) (Primary Dx) 08/19/2024 Telephone [facility] [place] [address] Kenna Swift MD 08/18/2024 Telephone [facility] [place] [address] Vianca Puentes, patient access director 08/17/2024 Refill [facility] [address] [place], [place] [phone] Jeet Freedman, EmilyD Type 2 diabetes mellitus with hyperglycemia, with long-term current use of insulin ([facility]) 07/21/2024 Telephone [facility] [address] [place], [place] [phone] Kenna Swift MD Appointment Request from Last [...] with others, in a hotel, in a halfway, living outside on the street, on a [...] Description 10/11/2024 1:15 PM EST Office Visit [facility] [address] [place] [address] Kenna Swift MD [address] [place], [place] [phone] 11/11/2024 11:00 AM EDT Medication Management [facility] [address] [place], [place] [phone] Jeet Freedman, PharmD [address] [place], [place] [phone] Health Maintenance Due Date Last Done Comments [...] hyperglycemia, with long-term current use of insulin ([facility]) HIGH SENSITIVITY TROPONIN I Routine 08/29/2024 3:57 [...] POCT HGB A1C (09/09/2024 1:54 PM EST) Pathologist [facility] Hemoglobin A1C 7.4(A) 4.0 - 6.0 % QC Media Lot # [id number] Lot# Expiration Date Blood 09/09/2024 1:54 PM EST Kenna Swift MD POINT OF CARE TEST ENTER/EDIT OR DERABLES Final Result * High Sensitivity Troponin I (08/29/2024 3:57 PM EST) Pathologist [facility] TROPONIN I HIGH SENSITIVITY <2.7 <3.5 - 35.0 ng/L [facility] Comment:The [place] high sens itivity Troponin-I results should beused in conjunction with other diagnostic information suchas ECG, clinical observations and information, and patientsymptoms to aid in the diagnosis of RI. 08/29/2024 3:57 PM EST 08/29/2024 4:00 PM EST us Generic External Data Provider LAB BLOOD ORDERAB LES Final Result [facility] [address] [place] [address] [phone] * MR Brain w/o Contrast (08/29/2024 12:41 PM EST) Anatomical Region Laterality Modality Brain Magnetic Resonan ce 08/29/2024 12:4 1 PM EST Narrative 08/29/2024 4:44 PM EST ? [facility] ?[address] ?[place] [address] ? Magnetic Resonance Report ? Signed ? Patient: Sigifredo Brown ?MR#: [id number] ?? [id number] ? : 1960 ?Acct:[id number] ? Age/Sex: 64 / M ?ADM Date: 08/29/24 ? Loc: HO.ED ? Attending Dr: ? Ordering Physician: Evangelista Song MD ?? Date of Service: 08/29/24 ?? Procedure(s): MR head/brain wo con ?? Accession Number(s): [id number] ? cc: Evangelista Song MD; Kenna Swift [...] DD/ 1241 ? TD/TT: 08/29/24 1505 ? Interdisciplinary Professor: MSM ? Procedure Note Donotuseinterpreter, Image - 08/29/2024 [place] [address] Magnetic Resonance Report Signed Patient: Elie Brown#: [id number] : 2Acct:[id number] Age/Sex: 64 / MADM Date: 08/29/24 Loc: HO.ED Attending Dr: Ordering Physician: Evangelista Song MD Date of Service: 08/29/24 Procedure(s): MR head/brain wo con Accession Number(s): [id number] cc: Evangelista Song MD; Kenna Swift MD [...] 08/29/24 1641 DD/ 1241 TD/TT: 08/29/24 1505 Interdisciplinary Professor: LUIS us [facility] External Provider IMG MRI PROCEDURES Final Result * CT Head w/o Contrast (08/29/2024 9:55 AM EST) Anatomical Region Laterality Modality Head, Neck Computed Tomogra phy 08/29/2024 9:55 AM EST Narrative 08/29/2024 11:03 AM EST ? [facility] ?[address] ?[place] [address] ? CT Scan Report ? Signed ? Patient: Sigifredo Brown ?MR#: [id number] ?? [id number] ? : 1960 ?Acct:[id number] ? Age/Sex: 64 / M ?ADM Date: 08/29/24 ? Loc: HO.ED ? Attending Dr: ? Ordering Physician: Evangelista Song MD ?? Date of Service: 08/29/24 ?? Procedure(s): CT head/brain wo IV con ?? Accession Number(s): [id number] ? cc: Evangelista Song MD; Kenna Swift MD ? Report Number: ?? [id number]: Total DLP = ??790.00 mGy-cm ?? EXAMINATION: [...] DD/ 0955 ? TD/TT: 08/29/24 1010 ? Interdisciplinary Professor: ? Procedure Note Urszula, Image - 08/29/[address] [address] [address] Scan Report Signed Patient: Elie Brown#: [id number] : 2Acct:[id number] Age/Sex: 64 / MADM Date: 08/29/24 Loc: HO.ED Attending Dr: Ordering Physician: Evangelista Song MD Date of Service: 08/29/24 Procedure(s): CT head/brain wo IV con Accession Number(s): [id number] cc: Evangelista Song MD; Kenna Swift MD Report Number: [id number]: Total DLP = 790.00 mGy-cm EXAMINATION: CT [...] 08/29/24 1100 DD/ 0955 TD/TT: 08/29/24 1010 Interdisciplinary Professor: [facility] External Provider IMG CT PROCEDURES Edited Result - Final * (ABNORMAL) POCT Glucose (08/29/2024 8:59 AM EST) Glucose Blood, POC 308(A) 60 - 200 mg/dL Blood Capillary blood specimen / Unknown 08/29/2024 8:59 AM EST us Thereplaced by [facility] ansonin Beauzile MD POINT OF CARE TEST ENTER/ED IT ORDERABLES Final Result * (ABNORMAL) Hm Colonoscopy (09/10/2023) Pathologist [facility] Colonoscopy Abnormal(A ) Normal Historical Provider HEALTH MAINTENANCE Final Result * Hepatitis C Antibody with Reflex to HCV, RNA, Quantitative, Real-Time PCR (01/22/2023 11:24 AM EDT) Pathologist [facility] Hepatitis C Antibody NON-REACT LUCERO NON-REACT LUCERO [facility] [place] [employer] Index 0.04 <1.00 [facility] [place] [employer] Comment: HCV antibody was non-reactive. There is no laboratory evidence of HCV infection. In most cases, no further action is required. However, if recent HCV exposure is suspected, a test for HCV RNA (test code 85826) is suggested. For additional information please refer to http://education.AERON Lifestyle Technology/faq/NLY90b8 (This link is being provided for informational/ educational purposes only.) Blood Venous blood specimen / Unknown 01/22/2023 11:24 AM EDT 01/22/2023 11:25 AM EDT Narrative [facility] - 01/23/2023 6:18 PM EDT FASTING:NO FASTING: NO Kenna Swift MD LAB BLOOD ORDERABLES Final Resul t [facility] [address], [place] [address] [facility] [place] [employer] [address] [place] [address] * HIV-1/2 Antigen and Antibodies, Fourth Generation, with Reflexes (01/22/2023 11:24 AM EDT) [facility] HIV Antigen/Antibody, 4th Generation NON-REAC TIVE NON-REAC TIVE [facility] [place] [employer] Comment: HIV-1 antigen and HIV-1/HIV-2 antibodies were [...] ?? For additional information please refer to http://Kosmix.AERON Lifestyle Technology/faq/AVZ997 (This link is being provided for informational/ educational purposes only.) The performance of this assay has not been clinically validated in patients less than 2 years old. Blood Venous blood specimen / Unknown 01/22/2023 11:24 AM EDT 01/22/2023 11:25 AM EDT Narrative [facility] - 01/23/2023 6:18 PM EDT FASTING:NO FASTING: NO us Kenna Swift MD LAB BLOOD ORDERABLES Final Resul t [facility] [address], [place] [address] [facility] [place] [employer] [address] [place] [address] * Lipid Panel with Reflex to Direct LDL (01/22/2023 11:22 AM EDT) Cholesterol, Total 154 <200 mg/dL [facility] [place] [employer] HDL Cholesterol 57 > OR = 40 mg/dL [facility] [place] [employer] Triglycerides 116 <150 mg/dL [facility] [place] [employer] LDL Cholesterol 77 mg/dL (calc) [facility] [place] [employer] Comment: Reference range: <100 Desirable range <100 mg/dL for primary prevention; ?? <70 mg/dL for patients with CHD or diabetic patients with > or = 2 CHD risk factors. LDL-C is now calculated using the Jesenia calculation, which is a validated novel method providing better accuracy than the Friedewald equation in the estimation of LDL-C. Tito DAVIS et al. RUI. 2013;310(19): 3472-6730 (http://education.Frograms.CaptiveMotion/faq/SLU921) Chol/HDLC Ratio 2.7 <5.0 (calc) whodoyou Non-HDL Cholesterol 97 <130 mg/dL (calc) [employer] Comment: For patients with diabetes plus 1 major ASCVD risk factor, treating to a non-HDL-C goal of <100 mg/dL (LDL-C of <70 mg/dL) is considered a therapeutic option. 01/22/2023 11:2 2 AM EDT 01/22/2023 11:23 AM EDT Narrative [facility] - 01/23/2023 5:03 PM EDT FASTING:NO FASTING: NO us Kenna Swift MD LAB BLOOD ORDERABLES Final Resul t [facility] [address], [place] [address] [facility] [place] [employer] [address] [place] [address] from Last 3 Months or Most Recently Relevant to Health Maintenance Insurance - [employer] Care Teams Technology Architect Relationship Specialty Start Date End Date Kenna Swift MD [address] [place] [address] PCP - General Family Medicine 02/06/14 Jeet Freedman, EmilyD [address] [place] [address] Pharmacist Internal Medicine 02/23/23
--- OUTSIDE RECORDS SUMMARY | 2024-10-06 10:05 | XMS_ITS | Encounter Summary ---
Author Organization [employer] Address [address] [facility] 7t [place] [address] Care Team Providers Care Kettle Cleaner Name Role Phone Kenna Swift MD Primary Care Provider [phone] Jeet Freedman PharmD Unavailable [phone] Reason for Visit * Reason Onset Date Comments Medication Question 08/30/2024 Encounter Details Date Type Department Care Team ([facility] st Contact Info) Description 08/30/2024 Telephone [facility] MEDICINE [address] [place], [place] [phone] Kenna Swift MD [address] [place], [place] [phone] Medication Question Social History Tobacco Use Types [...] with others, in a hotel, in a penitentiary, living outside on the street, on a [...] Description 10/11/2024 1:15 PM EST Office Visit [facility] MEDICINE [address] [place] [phone] Kenna Swift MD [address] [place] [phone] 11/11/2024 11:00 AM EDT Medication Management [facility] MEDICINE [address] [place] [address] Jeet Freedman PharmD [address] [place] [address] documented as of this encounter Goals Goal [...] documented as of this encounter Care Teams Kettle Cleaner Relationship Specialty Start Date End Date Kenna Swift MD [address] [place] [address] PCP - General Family Medicine 02/06/14 Jeet Freedman, PharmD [address] [place] [address] Pharmacist Internal Medicine 02/23/23 documented as of this encounter
--- OUTSIDE RECORDS SUMMARY | 2024-10-06 10:05 | XMS_ITS | Encounter Summary ---
Author Organization [employer] Address [address] [facility] 7t [place] [address] Care Team Providers Care Shellfish Shucker Name Role Phone Kenna Swift MD Primary Care Provider [phone] Jeet Freedman PharmD Unavailable [phone] Encounter Details Date Type Department Care Team ([facility] Contact Info) Description 09/08/2022 Orders Only [facility] MEDICINE [address] [place] [phone] Amanda Metzger LPN Social History Tobacco [...] [facility] MEDICINE [address] [place] [address] Kenna Swift MD [address] [place] [phone] 11/11/2024 11:00 AM EDT Medication Management [facility] MEDICINE [address] [place] [address] Jeet Freedman, Cate [address] [place] [address] documented as of this encounter Visit Diagnoses Not on filedocumented in this encounter Additional Health Concerns Assessment Noted Time PHQ-9 Depression Total Score: 17 023 5:26 PM EST documented as of this encounter Care Teams Shellfish Shucker Relationship Specialty Start Date End Date Kenna Swift MD [address] [place] [phone] PCP - General Family Medicine 02/06/14 Jeet Freedman, EmilyD [address] [place] [phone] Pharmacist Internal Medicine 02/23/23 documented as of this encounter
--- OUTSIDE RECORDS SUMMARY | 2024-10-06 10:05 | XMS_ITS | Encounter Summary ---
Author Organization [employer] Address 75 [facility] 7t [place] [address] Care Team Providers Care Marble Worker Name Role Phone Kenna Swift MD Primary Care Provider [phone] Jeet Freedman PharmD Unavailable [phone] Reason for Visit * Reason Onset Date Comments Chart Prep 10/05/2024 Encounter Details Date Type Department Care Team ([facility] st Contact Info) Description 10/05/2024 Telephone [facility] [address] [place], [place] [phone] Kenna Swift MD [address] [place], [place] [phone] Chart Prep Social History Tobacco Use Types Packs/Day Years [...] with others, in a hotel, in a retirement, living outside on the street, on a [...] encounter Miscellaneous Notes * Telephone Encounter - Heidy Miller MA - 10/05/2024 12:57 PM EST Chart Prep Labs: done Images: not done Vaccines due: Covid Due and Flu Due Referrals: Not Applicable Screenings: Eye Exam Overdue care gaps: A1C, Glucose, Sbirt, SDOH, PHQ-9, and Oral Health documented in this encounter Plan of Treatment Upcoming Encounters Date Type Department Care Team (Late st Contact Info) Description 10/11/2024 1:15 PM EST Office Visit [facility] [address] [place] [address] Kenna Swift MD [address] [place] [address] 11/11/2024 11:00 AM EDT Medication Management [facility] [address] [place] [address] Jeet Freedman, PharmD [address] [place] [address] documented as of this encounter Goals Goal Patient Goal Type Associated Problems Recent Progress Patient-Stated? Author Blood Pressure < 140/90 Blood Pressure 122/68(2024 1:57 PM EST) No Jeet Freedman PharmD Hemoglobin A1c < 7 Result Component 7.4( 5 1:54 PM EST) No Jeet Freedman PharmD documented as of this encounter Visit Diagnoses Not on filedocumented in this encounter Additional Health Concerns Assessment Noted Time PHQ-9 Depression Total Score: 17 023 5:26 PM EST documented as of this encounter Care Teams Marble Worker Relationship Specialty Start Date End Date Kenna Swift MD [address] [place] [address] PCP - General Family Medicine 02/06/14 Jeet Freedman PharmD [address] [place] [address] Pharmacist Internal Medicine 02/23/23 documented as of this encounter
--- OUTSIDE RECORDS SUMMARY | 2024-10-06 10:05 | XMS_ITS | Encounter Summary ---
Author Organization [employer] Address 75 [facility] 7t [place] [address] Care Team Providers Care Geophysical Observer Name Role Phone Kenna Swift MD Primary Care Provider [phone] Jeet Freedman PharmD Unavailable [phone] Encounter Details Date Type Department Care Team (Late st Contact Info) Description 09/26/2024 1:00 PM EST Telemedicine [facility] [address] [place], [place] [phone] Jeet Freedman, PharmD [address] [place] [address] Type 2 diabetes mellitus with hyperglycemia, with long-term current use of insulin ([facility]) (Primary Dx) Social History Tobacco Use Types [...] with others, in a hotel, in a senior care, living outside on the street, on a [...] AM EDT documented as of this encounter Progress Notes * Jeet Freedman, PharmD - 09/26/2024 1:00 PM EST Images from the original note were not included. Pharmacy Brief Encounter - Insulin Titration Pharmacist: Jeet Freedman, PharmD Sigifredo Desir is a 64 y.o. year old patient here for CDTM - Diabetes completed over the phone. Pharmacotherapy: Farxiga 10mg po daily Novolog, Inject under the skin 3 times daily with meals as directed by sliding scale. (B-200=2 units, 201-250=4 units, 251-300= 6 units, 301-350= 8 units, 351-400= 10 units, >400 12 units and call MD) Tresiba (U-100) 18 units under the skin once a day. (Actual use: 24 units) Ozempic 1 mg subcutaneously once a week Summary of previous encounter(s): 09/09/2024: Patient returned to care after 5 months in [place]. Patient tapered back up to Ozempic 1 mg subcutaneously weekly and restarted monitoring with Freestyle Anayeli 3 plus CGM. Today's Visit: Patient contacted [facility] pharmacist to report frequent hypoglycemia since Ozempic was increased to 1 mg. Patient continues to inject Tresiba 24 units despite being counseled to reduce dose to 18 units at last visit. Patient reports proper use of Novolog sliding scale. Patient denies experiencing symptoms of hypoglycemia. Patient is alerted by CGM monitor. (See Data below) Patient reports self treating appropriately, but is not verifying BG with finger capillary check. Plan: Patient agrees to reduce Tresiba to 18 units until FU with PCP in 2 weeks. Patient instructed that he may reduce dose further to 16 units if necessary for continued hypoglycemia or FBG average <80 mg/dL. Patient counseled on proper hypoglycemia self treatment with CGM. Patient agrees to check finger capillary BG when CGM reader alerts of hypoglycemia. Patient agrees to keep PCP appointment scheduled in 2 weeks and CDTM FU in 6 weeks. documented in this encounter Plan of Treatment Upcoming Encounters Date Type Department Care Team (Late st Contact Info) Description 10/11/2024 1:15 PM EST Office Visit [facility] [address] [place] [address] Knena Swift MD [address] [place] [address] 11/11/2024 11:00 AM EDT Medication Management [facility] [address] [place] [address] Jeet Freedman PharmD [address] [place] [address] documented as of this encounter Goals Goal [...] hyperglycemia, with long-term current use of insulin ([facility])- Primary documented in this encounter Additional Health Concerns Assessment Noted Time PHQ-9 Depression Total Score: 17 023 5:26 PM EST documented as of this encounter Care Teams Geophysical Observer Relationship Specialty Start Date End Date Kenna Swift MD [address] [place] [address] PCP - General Family Medicine 02/06/14 Jeet Freedman, EmilyD [address] [place] [address] Pharmacist Internal Medicine 02/23/23 documented as of this encounter
--- OUTSIDE RECORDS SUMMARY | 2024-10-06 10:05 | XMS_ITS | Encounter Summary ---
Author Organization [employer] Address 75 [facility] 7t [place] [address] Care Team Providers Care Looping Machine Operator Name Role Phone Kenna Swift MD Primary Care Provider [phone] Jeet Freedman PharmD Unavailable [phone] Reason for Visit * Reason Comments Med Refill Encounter Details Date Type Department Care Team (Late st Contact Info) Description 08/29/2024 Refill [facility] 230 [place], [place] [phone] Jeet Freedman, PharmD [address] [place], [place] [phone] Type 2 diabetes mellitus with hyperglycemia, with long-term current use of insulin ([facility]) Social History Tobacco Use Types Packs/Day Years [...] with others, in a hotel, in a snf, living outside on the street, on a [...] Description 10/11/2024 1:15 PM EST Office Visit [facility] [address] [place] [address] Kenna Swift MD [address] [place] [address] 11/11/2024 11:00 AM EDT Medication Management [facility] [address] [place] [address] Jeet Freedman PharmD [address] [place] [address] documented as of this encounter Goals Goal [...] hyperglycemia, with long-term current use of insulin ([facility]) documented in this encounter Additional Health Concerns Assessment Noted Time PHQ-9 Depression Total Score: 17 023 5:26 PM EST documented as of this encounter Care Teams Looping Machine Operator Relationship Specialty Start Date End Date Kenna Swift MD [address] [place] [address] PCP - General Family Medicine 02/06/14 Jeet Freedman, Cate [address] [place] [address] Pharmacist Internal Medicine 02/23/23 documented as of this encounter
--- OUTSIDE RECORDS SUMMARY | 2024-10-06 10:05 | XMS_ITS | Encounter Summary ---
Author Organization [employer] Address 75 [facility] 7t [place] [address] Care Team Providers Care Dry Drug Worker Name Role Phone Kenna Swift MD Primary Care Provider [phone] Jeet Freedman PharmD Unavailable [phone] Reason for Visit * Reason Comments Med Refill Encounter Details Date Type Department Care Team (Late st Contact Info) Description 06/17/[address] [facility] [address] [place], [place] [phone] Kenna Swift MD [address] [place], [place] [phone] Social History Tobacco Use Types Packs/Day Years [...] 1:15 PM EST Office Visit [facility] [address] [place] [address] Kenna Swift MD [address] [place] [address] 11/11/2024 11:00 AM EDT Medication Management [facility] [address] [place] [address] Jeet Freedman PharmD [address] [place] [address] documented as of this encounter Goals Goal [...] documented as of this encounter Care Teams Dry Drug Worker Relationship Specialty Start Date End Date Kenna Swift MD [address] [place] [address] PCP - General Family Medicine 02/06/14 Jeet Freedman, PharmD [address] [place] [address] [place] [address] Pharmacist Internal Medicine 02/23/23 documented as of this encounter
--- OUTSIDE RECORDS SUMMARY | 2024-10-06 10:05 | XMS_ITS | Encounter Summary ---
Author Organization [employer] Address 75 [facility] 7t [place] [address] Care Team Providers Care Executive Administrator Name Role Phone Kenna Swift MD Primary Care Provider [phone] Jeet Freedman PharmD Unavailable Encounter Details Date Type Department Care Team ([facility] Contact Info) Description 01/20/2023 Orders Only [facility] [address] [place] [address] Amanda Metzger LPN Social History Tobacco [...] Description 10/11/2024 1:15 PM EST Office Visit [facility] [address] [place] [address] Kenna Swift MD [address] [place] [address] 11/11/2024 11:00 AM EDT Medication Management [facility] [address] [place] [address] Jeet Freedman, Cate [address] [place] [address] documented as of this encounter Visit Diagnoses Not on filedocumented in this encounter Additional Health Concerns Assessment Noted Time PHQ-9 Depression Total Score: 17 023 5:26 PM EST documented as of this encounter Care Teams Executive Administrator Relationship Specialty Start Date End Date Kenna Swift MD [address] [place] [address] PCP - General Family Medicine 02/06/14 Jeet Freedman, EmilyD [address] [place] [address] Pharmacist Internal Medicine 02/23/23 documented as of this encounter
--- OUTSIDE RECORDS SUMMARY | 2024-10-06 10:05 | XMS_ITS | Encounter Summary ---
Author Organization [employer] Address 75 [facility] 7 [place] [address] Care Team Providers Care Wireless Manager Name Role Phone Kenna Swift MD Primary Care Provider [phone] Jeet Freedman PharmD Unavailable [phone] Reason for Referral * Consultation (Routine) - Authorized Specialty Diagnoses / Procedures Referred By Contac t Referred To Contact Pharmacy Diagnoses Type 2 diabetes mellitus with hyperglycemia, with long-term current use of insulin (CMS/HCC) Kenna Swift MD [address] [place] [address] Phone: tel: fax: Referral ID Status Reason Start Date Expiration Date Visits Requested Visits Authorized [id number] Authorized Consult and Treat 08/19/2024 08/19/2025 6 6 Encounter Details Date Type Department Care Team (Late st Contact Info) Description 08/19/[address] [facility] [address] [place] [address] Kenna Swift MD [address] [place] [address] Type 2 diabetes mellitus with [...] with others, in a hotel, in a residential, living outside on the street, on a [...] 10/11/2024 1:15 PM EST Office Visit [facility] [address] [place] [address] Kenna Swift MD [address] [place] [address] 11/11/2024 11:00 AM EDT Medication Management [facility] [address] [place] [address] Jeet Freedman, EmilyD [address] [place] [address] Scheduled Referrals Name Type Priority Associated Diagnoses Orde r Schedule Referral to Pharmacy CDTM Outpatient Referral Routine Type 2 diabetes mellitus with hyperglycemia, with long-term current use of insulin ([facility]) Ordered: 08/19/2024 documented as of this [...] EST Narrative 08/29/2024 4:44 PM EST ? [facility] ?[address] ?[place] [address] ? Magnetic Resonance Report ? Signed ? Patient: Sigifredo Brown ?MR#: [id number] ?? [id number] ? : 1960 ?Acct:[id number] ? Age/Sex: 64 / M ?ADM Date: 08/29/24 ? Loc: HO.ED ? Attending Dr: ? Ordering Physician: Evangelista Song MD ?? Date of Service: 08/29/24 ?? Procedure(s): MR head/brain wo con ?? Accession Number(s): [id number] ? cc: Evangelista Song MD; Kenna Swift [...] DD/ 1241 ? TD/TT: 08/29/24 1505 ? Gyn: MSM ? Procedure Note Donadali, Image - 08/29/2024 [place] [address] Magnetic Resonance Report Signed Patient: Elie Brown#: [id number] : 2Acct:[id number] Age/Sex: 64 / MADM Date: 08/29/24 Loc: HO.ED Attending Dr: Ordering Physician: Evangelista Song MD Date of Service: 08/29/24 Procedure(s): MR head/brain wo con Accession Number(s): [id number] cc: Evangelista Song MD; Kenna Swift MD [...] 08/29/24 1641 DD/ 1241 TD/TT: 08/29/24 1505 Gyn: LUIS [facility] External Provider IMG MRI PROCEDURES Final Result * CT Head w/o Contrast (08/29/2024 9:55 AM EST) Anatomical Region Laterality Modality Head, Neck Computed Tomogra phy 08/29/2024 9:55 AM EST Narrative 08/29/2024 11:03 AM EST ? [facility] ?[address] ?[place] [address] ? CT Scan Report ? Signed ? Patient: Christianne Desir,Sigifredo ?MR#: [id number] ?? [id number] ? : 1960 ?Acct:[id number] ? Age/Sex: 64 / M ?ADM Date: //25 ? Loc: HO.ED ? Attending Dr: ? Ordering Physician: Evangelista Song MD ?? Date of Service: 08/29/24 ?? Procedure(s): CT head/brain wo IV con ?? Accession Number(s): [id number] ? cc: Evangelista Song MD; Kenna Swift MD ? Report Number: ?? [id number]: Total DLP = ??790.00 mGy-cm ?? EXAMINATION: [...] DD/ 0955 ? TD/TT: 08/29/24 1010 ? Gyn: ? Procedure Note Urszula, Tanya - 08/29/[address] [address] [address] Scan Report Signed Patient: Elie Brown#: [id number] : 2Acct:[id number] Age/Sex: 64 / MADM Date: 08/29/24 Loc: HO.ED Attending Dr: Ordering Physician: Evangelista Song MD Date of Service: 08/29/24 Procedure(s): CT head/brain wo IV con Accession Number(s): [id number] cc: Evangelista Song MD; Kenna Swift MD Report Number: [id number]: Total DLP = 790.00 mGy-cm EXAMINATION: CT [...] 08/29/24 1100 DD/ 0955 TD/TT: 08/29/24 1010 Gyn: [facility] External Provider IMG CT PROCEDURES Edited Result - Final documented in this encounter Visit Diagnoses Diagnosis Type 2 diabetes mellitus with hyperglycemia, with long-term current use of insulin ([facility])- Primary documented in this encounter Additional Health Concerns Assessment Noted Time PHQ-9 Depression Total Score: 17 023 5:26 PM EST documented as of this encounter Care Teams Wireless Manager Relationship Specialty Start Date End Date Kenna Swift MD [address] [place] [address] PCP - General Family Medicine 02/06/14 Jeet Freedman, EmilyD [address] [place] [address] Pharmacist Internal Medicine 02/23/23 documented as of this encounter
--- OUTSIDE RECORDS SUMMARY | 2024-10-06 10:05 | XMS_ITS | Encounter Summary ---
Author Organization [employer] Address 75 [facility] 7t [place] [address] Care Team Providers Care Train Brake Operator Name Role Phone Kenna Swift MD Primary Care Provider [phone] Jeet Freedman PharmD Unavailable [phone] Reason for Visit * Reason Comments Med Refill Encounter Details Date Type Department Care Team (Late st Contact Info) Description 09/28/2024 Refill [facility] 230 [place], [place] [phone] Jeet Freedman, PharmD 230 [place], [place] [phone] Type 2 diabetes mellitus with hyperglycemia, with long-term current use of insulin ([facility]) Social History Tobacco Use Types Packs/Day Years [...] Description 10/11/2024 1:15 PM EST Office Visit [facility]INE [address] [place] [address] Kenna Swift MD [address] [place] [address] 11/11/2024 11:00 AM EDT Medication Management [facility] [address] [place] [address] Jeet Freedman PharmD [address] [place] [address] documented as of this encounter Goals Goal [...] hyperglycemia, with long-term current use of insulin ([facility]) documented in this encounter Additional Health Concerns Assessment Noted Time PHQ-9 Depression Total Score: 17 023 5:26 PM EST documented as of this encounter Care Teams Train Brake Operator Relationship Specialty Start Date End Date Kenna Swift MD [address] [place] [address] PCP - General Family Medicine 02/06/14 Jeet Freedman, Cate [address] [place] [address] Pharmacist Internal Medicine 02/23/23 documented as of this encounter
--- OUTSIDE RECORDS SUMMARY | 2024-10-06 10:05 | XMS_ITS | Encounter Summary ---
Author Organization [employer] Address 75 [facility] 7t [place] [address] Care Team Providers Care Food Counter Worker Name Role Phone Kenna Swift MD Primary Care Provider [phone] Jeet Freedman PharmD Unavailable [phone] Encounter Details Date Type Department Care Team [...] others, in a hotel, in a senior living, living outside on the street, on a [...] Description 10/11/2024 1:15 PM EST Office Visit [facility] [address] [place] [address] Kenna Swift MD [address] [place] [address] 11/11/2024 11:00 AM EDT Medication Management [facility] [address] [place] [address] Jeet Freedman PharmD [address] [place] [address] documented as of this encounter Goals Goal [...] documented as of this encounter Care Teams Food Counter Worker Relationship Specialty Start Date End Date Kenna Swift MD [address] [place] [address] [phone] PCP - General Family Medicine 02/06/14 Jeet Freedman PharmD [address] [place] [address] [phone] Pharmacist Internal Medicine 02/23/23 documented as of this encounter
--- OUTSIDE RECORDS SUMMARY | 2024-10-06 10:05 | XMS_ITS | Encounter Summary ---
Author Organization [employer] Address 75 [facility] 7t [place] [address] Care Team Providers Care Research Laboratory Specialist Name Role Phone Kenna Swift MD Primary Care Provider Jeet Freedman PharmD Unavailable Reason for Visit * Reason Comments Med Refill Encounter Details Date Type Department Care Team (Late st Contact Info) Description 09/04/2024 Refill [facility] 230 [place], [place] [phone] Kenna Swift MD [address] [place], [place] [phone] Type 2 diabetes mellitus with hyperglycemia, with long-term current use of insulin ([facility]); Dyslipidemia Social History Tobacco Use Types Packs/Day [...] with others, in a hotel, in a usp, living outside on the street, on a [...] Description 10/11/2024 1:15 PM EST Office Visit [facility] [address] [place] [address] Kenna Swift MD [address] [place] [address] 11/11/2024 11:00 AM EDT Medication Management [facility] [address] [place] [address] Jeet Freedman PharmD [address] [place] [address] documented as of this encounter Goals Goal [...] use of insulin ([facility]) Dyslipidemia Other and unspecified hyperlipidemia documented in this encounter Additional Health Concerns Assessment Noted Time PHQ-9 Depression Total Score: 17 023 5:26 PM EST documented as of this encounter Care Teams Research Laboratory Specialist Relationship Specialty Start Date End Date Kenna Swift MD [address] [place] [address] PCP - General Family Medicine 02/06/14 Jeet Freedman PharmD [address] [place] [address] Pharmacist Internal Medicine 02/23/23 documented as of this encounter
[2024-10-06 10:11] LABS: MANUAL DIFF FLAG NO
[2024-10-06 11:06] LABS: Basophils Absolute Auto 0.1 X10*3/uL (0.0-0.2); Basophils Percent Auto 0.8 % (0-2); Eosinophils Absolute Auto 0.2 X10*3/uL (0.0-0.4); Hematocrit 47.6 % (42.0-52.0); Hemoglobin 16.5 g/dl (14.0-18.0); Imm Gran Abs Auto 0.02 X10*3/uL (0.00-0.03); Imm Gran Pct Auto 0.3 % (0.0-0.4); Lymphocytes Absolute Auto 2.2 X10*3/uL (1.2-4.9); Lymphocytes Percent Auto 29.1 % (20-40); Mean Corpuscular HGB Conc 34.7 g/dl (31.0-36.0); Mean Corpuscular Hemoglobin 30.4 pg (27.0-33.0); Mean Corpuscular Volume 87.7 fL (80.0-98.0); Monocytes Absolute Auto 0.5 X10*3/uL (0.1-1.2); Monocytes Percent Auto 6.7 % (2-11); Neutrophils Absolute Auto 4.7 x10*3/uL (2.0-8.3); Neutrophils Percent Auto 61.1 % (45-73); Platelet Count 264 X10*3/uL (160-400); Red Blood Count 5.43 X10*6/uL (4.60-5.80); White Blood Count 7.7 X10*3/uL (4.8-10.8)
[2024-10-06 11:14] LABS: Estimated Average Glucose 134 mg/dL; Hemoglobin A1C 190.1133 umol/L; Hemoglobin A1c % 6.3 % (<6.0); Total Hemoglobin (HGBA1C) 4205.5795 umol/L
[2024-10-06 11:45] LABS: Alanine Aminotransferase 21 U/L (0-40); Albumin Level 4.2 g/dL (3.5-5.0); Alkaline Phosphatase 78 U/L (39-117); Anion Gap 13 (12-20); Aspartate Amino Transferase 26 U/L (5-37); Bilirubin Total 0.5 mg/dL (0.0-1.0); Blood Urea Nitrogen 12 mg/dL (9-16); Calcium 9.8 mg/dL (8.4-10.2); Carbon Dioxide 26 mmol/L (22-29); Chloride 107 mmol/L (96-108); Estimated Glomerular Filt Rate > 60; Glucose Random 93 mg/dL (60-115); Iron 110 mcg/dL (45-160); Percent Iron Saturation 38 % (15-50); Sodium 142 mmol/L (135-145); Total Iron Binding Capacity 293 mcg/dL (228-428); Unsaturated Iron Binding 183 ug/dL
[2024-10-06 11:50] LABS: Ferritin 48 ng/mL (20-250); TSH reflex Free T4 3.46 uIU/mL (0.32-4.0)
[2024-10-06 12:00] LABS: Folate 8.9 ng/mL (> or = 4.0); Vitamin B12 699 pg/mL (200-900)
[2024-10-07 15:58] LABS: Homocysteine 11.2 umol/L (<11.4)
[2024-10-10 03:28] LABS: Methylmalonic Acid 89 nmol/L (69-390)
== END 2024-10-06 09:22 | disposition home or self-care (01) ==
LOC: HO.HHCL 09:21
PROVIDERS: Visit Provider Nurse Practitioner Family
DX: G25.81 Restless legs syndrome (principal); D64.9 Anemia, unspecified; F41.9 Anxiety disorder, unspecified; F32.A Depression, unspecified; E11.69 Type 2 diabetes mellitus with other specified complication; E66.9 Obesity, unspecified; Z13.6 Encounter for screening for cardiovascular disorders
CPT/HCPCS: 36415; 80053; 82607; 82728; 82746; 83036; 83090; 83540; 83921; 84443; 85025

== ENCOUNTER 2024-10-11 14:19 | Outpatient (REF) | payer OTHER, SELFPAY ==
[2024-10-11 16:52] LABS: Creatinine Urine 126.67 mg/dL; Microalbum/Creatinine Ratio Ur 57.6 ug/mg cr (<30)
[2024-10-11 17:07] LABS: Alanine Aminotransferase 21 U/L (0-40); Albumin Level 4.3 g/dL (3.5-5.0); Alkaline Phosphatase 82 U/L (39-117); Aspartate Amino Transferase 31 U/L (5-37); Bilirubin Direct 0.2 mg/dL (0.0-0.5); Bilirubin Total 0.5 mg/dL (0.0-1.0); Cholesterol 104 mg/dL (<200); HDL Cholesterol 48 mg/dL (>40); LDL Cholesterol Calculated 45 mg/dL (<100); Total Protein 8.2 g/dL (6.5-8.0); Triglycerides 59 mg/dL (<150)
--- OUTSIDE RECORDS SUMMARY | 2024-10-11 17:57 | XMS_ITS | Encounter Summary ---
Author Organization [facility] Address 75 [facility] 7t [place] [address] Care Team Providers Care Doctor Of Nursing Practice Name Role Phone Kenna Swift MD Primary Care Provider Jeet Freedman PharmD Unavailable [phone] Encounter Details Date Type Department Care Team (Latest Contact Info) Description 10/11/2024 Travel Social History Tobacco Use Types Packs/Day [...] Answer Date Recorded Patient Health Questionnaire-9 Score 13 10/11/2024 Patient Health Questionnaire-9 Score 13 10/11/2024 Last PHQ-9: Questionnaire Data Not on file 0 10/11/2024 Housing Stability Answer Date Recorded What is your housing situation today? I do not have housing (Staying with others, in a hotel, in a care home, living outside on the street, on [...] Answer Date Recorded Patient Health Questionnaire-2 Score 3 10/11/2024 Sex and Gender Information Value Date Recorded Sex Assigned at Male 06/16/2022 10:15 AM EDT Legal Sex Male 10:15 AM EDT Gender Identity Male 06/16/2022 10:15 AM EDT Sexual Orientation Straight 06/16/2022 10 :15 AM EDT documented as of this encounter Plan of Treatment Upcoming Encounters Date Type Department Care Team (Late st Contact Info) Description 11/11/2024 11:00 AM EDT Medication Management [facility]INE 230 [place], [place] [phone] Jeet Freedman PharmD [address] [place] [address] documented as of this encounter Goals Goal Patient Goal Type Associated Problems Recent Progress Patient-Stated? Author Blood Pressure < 140/90 Blood Pressure 122/74(2024 1:19 PM EST) No Jeet Freedman PharmD Hemoglobin A1c < 7 Result Component 6.7( 1:22 PM EST) No Jeet Freedman PharmD documented as of this encounter Visit Diagnoses Not on filedocumented in this encounter Additional Health Concerns Assessment Noted Time PHQ-9 Depression Total Score: 13 025 1:58 PM EST documented as of this encounter Care Teams Doctor Of Nursing Practice Relationship Specialty Start Date End Date Kenna Swift MD [address] [place] [address] [phone] PCP - General Family Medicine 02/06/14 Jeet Freedman PharmD [address] [place] [address] [phone] Pharmacist Internal Medicine 02/23/23 documented as of this encounter
--- OUTSIDE RECORDS SUMMARY | 2024-10-11 17:57 | XMS_ITS | Encounter Summary ---
Author Organization [employer] Address 75 [facility] 7t [place] [address] Care Team Providers Care Traffic Superintendent Name Role Phone Kenna Swift MD Primary Care Provider [phone] Jeet Freedman PharmD Unavailable [phone] Encounter Details Date Type Department Care Team ([facility] Contact Info) Description 01/20/2023 Orders Only [facility] MEDICINE [address] [place] [address] Amanda Metzger LPN Social History Tobacco [...] Department Care Team (Late Contact Info) Description 11/11/2024 11:00 AM EDT Medication Management [facility] MEDICINE [address] [place] [address] Jeet Freedman, PharmD [address] [place] [address] documented as of this encounter Visit Diagnoses Not on filedocumented in this encounter Additional Health Concerns Assessment Noted Time PHQ-9 Depression Total Score: 17 023 5:26 PM EST documented as of this encounter Care Teams Traffic Superintendent Relationship Specialty Start Date End Date Kenna Swift MD [address] [place] [address] PCP - General Family Medicine 02/06/14 Jeet Freedman, PharmD [address] [place] [address] Pharmacist Internal Medicine 02/23/23 documented as of this encounter
--- OUTSIDE RECORDS SUMMARY | 2024-10-11 17:57 | XMS_ITS | Encounter Summary ---
Author Organization [employer] Address 75 [facility] 7 [place] [address] Care Team Providers Care Disability Manager Name Role Phone Kenna Swift MD Primary Care Provider [phone] Jeet Freedman PharmD Unavailable [phone] Reason for Referral * Consultation (Routine) - Authorized Specialty Diagnoses / Procedures Referred By Contac t Referred To Contact Pharmacy Diagnoses Type 2 diabetes mellitus with hyperglycemia, with long-term current use of insulin (CMS/HCC) Kenna Swift MD [address] [place] [address] Phone: tel: fax: Referral ID Status Reason Start Date Expiration Date Visits Requested Visits Authorized [id number] Authorized Consult and Treat 08/19/2024 08/19/2025 6 6 Encounter Details Date Type Department Care Team (Late st Contact Info) Description 08/19/2024 Orders Only [facility] MEDICINE [address] [place] [address] Kenna Swift MD [address] [place] [address] Type 2 diabetes mellitus with [...] Description 11/11/2024 11:00 AM EDT Medication Management [facility] MEDICINE [address] [place] [address] Jeet Freedman, PharmD [address] [place] [address] Scheduled Referrals Name Type Priority Associated Diagnoses Orde r Schedule Referral to Pharmacy CDTM Outpatient Referral Routine Type 2 diabetes mellitus with hyperglycemia, with long-term current use of insulin ([facility]) Ordered: 08/19/2024 documented as of this encounter Goals Goal Patient Goal Type Associated Problems Recent Progress Patient-Stated? Author Blood Pressure < 140/90 Blood Pressure 122/74(2024 1:19 PM EST) No Jeet Freedman, Cate Hemoglobin A1c < 7 Result Component 6.7( [...] EST Narrative 08/29/2024 4:44 PM EST ? [facility] ?[address] ?[place] [address] ? Magnetic Resonance Report ? Signed ? Patient: Sigifredo Brown ?MR#: [id number] ?? [id number] ? : 1960 ?Acct:[id number] ? Age/Sex: 64 / M ?ADM Date: 08/29/24 ? Loc: HO.ED ? Attending Dr: ? Ordering Physician: Evangelsita Song MD ?? Date of Service: 08/29/24 ?? Procedure(s): MR head/brain wo con ?? Accession Number(s): [id number] ? cc: Evangelista Song MD; Kenna Swift [...] DD/ 1241 ? TD/TT: 08/29/24 1505 ? Therapeutic Specialist: MSM ? Procedure Note Donotuseinterpreter, Image - 08/29/2024 [place] [address] Magnetic Resonance Report Signed Patient: Elie Brown#: [id number] : 2Acct:[id number] Age/Sex: 64 / MADM Date: 08/29/24 Loc: HO.ED Attending Dr: Ordering Physician: Evangelista Song MD Date of Service: 08/29/24 Procedure(s): MR head/brain wo con Accession Number(s): [id number] cc: Evangelista Song MD; Kenna Swift MD [...] 08/29/24 1641 DD/ 1241 TD/TT: 08/29/24 1505 Therapeutic Specialist: MSM [facility] External Provider IMG MRI PROCEDURES Final Result * CT Head w/o Contrast (08/29/2024 9:55 AM EST) Anatomical Region Laterality Modality Head, Neck Computed Tomogra phy 08/29/2024 9:55 AM EST Narrative 08/29/2024 11:03 AM EST ? [facility] ?[address] ?[place] [address] ? CT Scan Report ? Signed ? Patient: Sigifredo Brown ?MR#: [id number] ?? [id number] ? : 1960 ?Acct:[id number] ? Age/Sex: 64 / M ?ADM Date: 08/29/24 ? Loc: HO.ED ? Attending Dr: ? Ordering Physician: Evangelista Song MD ?? Date of Service: 08/29/24 ?? Procedure(s): CT head/brain wo IV con ?? Accession Number(s): [id number] ? cc: Evangelista Song MD; Kenna Swift MD ? Report Number: ?? [id number]: Total DLP = ??790.00 mGy-cm ?? EXAMINATION: [...] Downs MD ??08/29/2024 11:00 AM ?? EST ? Dictated By: ?Cleveland Grayson MD ? Signed By: ?<Electronically signed by Cleveland Puentes MD in OV> ? 08/29/24 1100 ? DD/ 0955 ? TD/TT: 08/29/24 1010 ? Therapeutic Specialist: ? Procedure Note Urszula, Image - 08/29/[address] [address] [address] Scan Report Signed Patient: Dorita BrownPorfirio#: [id number] : 2Acct:[id number] Age/Sex: 64 / MADM Date: 08/29/24 Loc: HO.ED Attending Dr: Ordering Physician: Evangelista Song MD Date of Service: 08/29/24 Procedure(s): CT head/brain wo IV con Accession Number(s): [id number] cc: Evangelista Song MD; Kenna Swift MD Report Number: [id number]: Total DLP = 790.00 mGy-cm EXAMINATION: CT [...] by: Cleveland Downs MD 08/29/2024 11:00 AM [facility] Dictated By: Cleveland Grayson MD Signed By: <Electronically signed by Cleveland Puentes MDin OV> 08/29/24 1100 DD/ 0955 TD/TT: 08/29/24 1010 Therapeutic Specialist: [facility] External Provider IMG CT PROCEDURES Edited Result - Final documented in this encounter Visit Diagnoses Diagnosis Type 2 diabetes mellitus with hyperglycemia, with long-term current use of insulin ([facility])- Primary documented in this encounter Additional Health Concerns Assessment Noted Time PHQ-9 Depression Total Score: 17 023 5:26 PM EST documented as of this encounter Care Teams Disability Manager Relationship Specialty Start Date End Date Kenna Swift MD [address] [place] [address] PCP - General Family Medicine 02/06/14 Jeet Freedman, Cate [address] [place] [address] Pharmacist Internal Medicine 02/23/23 documented as of this encounter
--- OUTSIDE RECORDS SUMMARY | 2024-10-11 17:57 | XMS_ITS | Encounter Summary ---
Author Organization [employer] Address [address] [facility] 7t [place] [address] Care Team Providers Care College Tutor Name Role Phone Kenna Swift MD Primary Care Provider [phone] Jeet Freedman PharmD Unavailable [phone] Reason for Visit * Reason Onset Date Comments Chart Prep 10/05/2024 Encounter Details Date Type Department Care Team ([facility] st Contact Info) Description 10/05/2024 Telephone [facility] MEDICINE [address] [place], [place] [phone] Kenna Swift MD [address] [place], [place] [phone] Chart Prep Social History Tobacco Use Types [...] Description 11/11/2024 11:00 AM EDT Medication Management [facility] [address] [place] [address] Jeet Freedman PharmD [address] [place] [address] documented as of this encounter Goals Goal [...] documented as of this encounter Care Teams College Tutor Relationship Specialty Start Date End Date Kenna Swift MD [address] [place] [address] PCP - General Family Medicine 02/06/14 Jeet Freedman PharmD [address] [place] [address] Pharmacist Internal Medicine 02/23/23 documented as of this encounter
--- OUTSIDE RECORDS SUMMARY | 2024-10-11 17:57 | XMS_ITS | Encounter Summary ---
Author Organization [employer] Address 75 [facility] 7t [place] [address] Care Team Providers Care Work Order Clerk Name Role Phone Kenna Swift MD Primary Care Provider Jeet Freedman PharmD Unavailable [phone] Encounter Details Date Type Department Care Team (Late st Contact Info) Description 10/11/2024 1:15 PM EST Office Visit [facility] MEDICINE [address] [place], [place] [phone] Kenna Swift MD [address] [place], [place] [phone] Essential hypertension (Primary Dx); Obstructive sleep apnea; Type 2 diabetes mellitus with microalbuminuria, with long-term current use of insulin (CMS/HCC); Mood disorder (CMS/HCC); Chronic pain of both knees Social History Tobacco Use Types Packs/Day Years [...] Sign Reading Time Taken Comments Blood Pressure 122/74 10/11/2024 1:19 PM EST Pulse 80 10/11/2024 1:19 PM EST Temperature 36.3 ??C (97.3 ??F) 10/11/2024 1:19 PM ES T Respiratory Rate 12 10/11/2024 1:19 PM EST Oxygen Saturation - - Inhaled Oxygen Concentration - - Weight 99.1 kg (218 lb 6.6 oz) 10/11/2024 1:19 P M EST Height 175.3 cm (5' 9 ) 10/11/2024 1:19 PM EST Body Mass Index 32.25 10/11/2024 1:19 PM EST documented in this encounter Plan of Treatment Upcoming Encounters Date Type Department Care Team (Late st Contact Info) Description 11/11/2024 11:00 AM EDT Medication Management [facility] MEDICINE [address] [place] [address] Jeet Freedman, PharmD [address] [place], [place] [phone] Scheduled Orders Name Type Priority Associated Diagnoses Orde r Schedule XR Knee 1-2 Views Left Imaging Routine Chronic pain of both knees Expected: 10/11/2024, Expires: 10/11/2025 XR Knee 1-2 Views Right Imaging Routine Chronic pain of both knees Expected: 10/11/2024, Expires: 10/11/2025 Lipid Panel with Reflex to Direct LDL Lab Routine Type 2 diabetes mellitus with microalbuminuria, with long-term current use of insulin ([facility]) Ordered: 10/11/2024 documented as of this encounter Goals Goal Patient Goal Type Associated Problems Recent Progress Patient-Stated? Author Blood Pressure < 140/90 Blood Pressure 122/74(2024 1:19 PM EST) No Jeet Freedman, Cate Hemoglobin A1c < 7 Result Component 6.7( 1:22 PM EST) No Jeet Freedman, Cate documented as of this encounter Procedures Procedure Name Priority Date/Time Associated Diagnosis Comments ALBUMIN, RANDOM URINE W/CREATININE Routine 10/11/2024 2:21 PM EST Type 2 diabetes mellitus with microalbuminuria, with long-term current use of insulin ([facility]) POCT GLYCOSYLATED HEMOGLOBIN (HGB A1C) Routine 10/11/2024 1:22 PM EST Type 2 diabetes mellitus with microalbuminuria, with long-term current use of insulin ([facility]) POCT GLUCOSE Routine 10/11/2024 1:21 PM EST Type 2 diabetes mellitus with microalbuminuria, with long-term current use of insulin ([facility]) documented in this encounter Results * (ABNORMAL) Albumin, Random Urine W/Creatinine (10/11/2024 2:21 PM EST) Creatinine, Urine 126.67 mg/dL [facility] Microalbumin Urine 73.0 mg/L [facility] Microalbum Creatinine Ratio Ur 57.6(H) <30 ug/mg cr [facility] Comment:Albumin/Creatinine R atio Reference Ranges: Normal: < 30 ug/mg creatinine Microalbuminuria: 30 - 300 ug/mg creatinineClinical Albuminuria: > 300 ug/mg creatinine Urine 10/11/2024 2:21 PM EST 10/11/2024 4:14 PM EST Kenna Swift MD LAB URINE ORDERABLES Final Resul t [facility] [address] [place] [address] [phone] * (ABNORMAL) POCT glycosylated hemoglobin (Hgb A1c) (10/11/2024 1:22 PM EST) Hemoglobin A1C 6.7(A) 4.0 - 6.0 % QC Media Lot # [id number] Lot# Expiration Date Blood Capillary blood specimen / Unknown 10/11/2024 1:22 PM EST Kenna Swift MD POINT OF CARE TEST ENTER/EDIT OR DERABLES Final Result * POCT glucose manually resulted (10/11/2024 1:21 PM EST) Glucose Blood, POC 93 60 - 200 mg/dL QC Media Lot # [id number] Lot# Expiration Date 82,625 Blood Capillary blood specimen / Unknown 10/11/2024 1:21 PM EST Result [facility] Kenna Swift MD POINT OF CARE TEST ENTER/EDIT OR DERABLES Final Result documented in this encounter Visit Diagnoses Diagnosis Essential hypertension- Primary Unspecified essential hypertension Obstructive sleep apnea Obstructive sleep apnea (adult) (pediatric) Type 2 diabetes mellitus with microalbuminuria, with long-term current use of insulin (CMS/HCC) Mood disorder (CMS/HCC) Unspecified episodic mood disorder Chronic pain of both knees documented in this encounter Additional Health Concerns Assessment Noted Time PHQ-9 Depression Total Score: 13 025 1:58 PM EST documented as of this encounter Care Teams Work Order Clerk Relationship Specialty Start Date End Date Kenna Swift MD [address] [place] [phone] PCP - General Family Medicine 02/06/14 Jeet Freedman, PharmD [address] [place] [phone] Pharmacist Internal Medicine 02/23/23 documented as of this encounter
--- OUTSIDE RECORDS SUMMARY | 2024-10-11 17:57 | XMS_ITS | Encounter Summary ---
Author Organization [employer] Address [address] [facility] 7t [place] [address] Care Team Providers Care Injection Mold Technician Name Role Phone Kenna Swift MD Primary Care Provider [phone] Jeet Freedman PharmD Unavailable [phone] Reason for Visit * Reason Comments Med Refill Encounter Details Date Type Department Care Team (Late st Contact Info) Description 06/17/2023 Refill [facility] MEDICINE [address] [place], [place] [phone] Kenna Swift MD [address] [place], [place] [phone] Social History Tobacco Use Types Packs/Day Years [...] with others, in a hotel, in a mcc, living outside on the street, on a [...] Description 11/11/2024 11:00 AM EDT Medication Management [facility] MEDICINE [address] [place] [address] Jeet Freedman PharmD [address] [place] [phone] documented as of this encounter Goals Goal [...] documented as of this encounter Care Teams Injection Mold Technician Relationship Specialty Start Date End Date Kenna Swift MD [address] [place] [address] [phone] PCP - General Family Medicine 02/06/14 Jeet Freedman PharmD [address] [place] [address] [phone] Pharmacist Internal Medicine 02/23/23 documented as of this encounter
--- OUTSIDE RECORDS SUMMARY | 2024-10-11 17:57 | XMS_ITS | Clinical Summary ---
Author Organization [employer] [facility] Address [address] [facility] 7t [place] [address] Care Team Providers Care Power Press Operator Name Role Phone Kenna Swift MD Primary Care Provider [phone] Jeet Freedman PharmD Unavailable Allergies Active Allergy Reactions Criticality Noted Date [...] with long-term current use of insulin ([facility]) Inject under the skin 3 times daily [...] 90 tablet 3 024 Active Continuous Glucose Poultry Scientist (FreeStyle Anayeli 3 [place]) deviceIndicatio ns:Type 2 diabetes mellitus with hyperglycemia, with long-term current use of insulin (CMS/[facility]) 1 Device Use as directed. Scan sensor up to 4 times daily 1 each 025 Active Continuous Glucose Sensor (FreeStyle Anayeli 3 Plus Sensor) miscIndications :Type 2 diabetes mellitus with hyperglycemia, with long-term current use of insulin (CMS/[facility]) Apply 1 Device topically every 15 days. 2 each 025 Active semaglutide (Ozempic, 1 MG/DOSE,) 4 MG/3ML solution pen-injectorInd ications:Type 2 diabetes mellitus with hyperglycemia, with long-term current use of insulin (CMS/[facility]) Inject 1 mg under the skin once weekly as directed 3 mL 5 025 Active Blood Glucose Monitoring Suppl (FreeStyle [place] Lite) w/Device kitIndications: Type 2 diabetes mellitus with hyperglycemia, with long-term current use of insulin (CMS/HCC) Use to test blood sugar 3 times daily 1 kit 025 Active Easy Touch Pen [place] 31G X 8 MM misc USE DIRECTED [...] with long-term current use of insulin ([facility]) INJECT 24 UNITS SUBCUTANEOUSLY ONCE DAILY 15 mL 025 Active traZODone (Desyrel) 150 MG tablet Take 150 mg by mouth if needed at bedtime for sleep. 025 Active glucose blood (FREESTYLE LITE) test stripIndication s:Type 2 diabetes mellitus with hyperglycemia, with long-term current use of insulin ([facility]) TEST BLOOD SUGAR THREE TIMES DAILY 100 strip 3 Active TRUEplus Lancets 33G miscIndications :Type 2 diabetes mellitus with hyperglycemia, with long-term current use of insulin ([facility]) TEST BLOOD SUGAR THREE TIMES DAILY 100 [...] with long-term current use of insulin ([facility]) INJECT 18 UNITS SUBCUTANEOUSLY ONCE DAILY 15 mL 2 025 2024 Discontinued(R eorder (will not trigger notification to Pharmacy)) glucose blood (FreeStyle Precision [place] Test) test stripIndication s:Type 2 diabetes mellitus with hyperglycemia, with long-term current use of insulin ([facility]) Use to check blood sugar up to three times daily as needed for hypoglycemia or sensor failure. 100 each 11 025 2024 Discontinued glucose blood (FREESTYLE LITE) test stripIndication s:Type 2 diabetes mellitus with hyperglycemia, with long-term current use of insulin ([facility]) Use to test blood sugar 3 times daily 100 each 025 2024 Discontinued(M ed list cleanup (will not trigger notification to Pharmacy)) Lancets miscIndications :Type 2 diabetes mellitus with hyperglycemia, with long-term current use of insulin ([facility]) Use to test blood sugar 3 times [...] eye exam: Non-proliferative DM retinopathy. Following with [facility] Eye care, next appt in February 2023 [...] eye exam: Non-proliferative DM retinopathy. Following with [facility] Eye care, next appt in February 2023 [...] eye exam: Non-proliferative DM retinopathy. Following with [facility] Eye care, next appt in February 2023 [...] eye exam: Non-proliferative DM retinopathy. Following with [facility] Eye care, next appt in February 2023 [...] eye exam: Non-proliferative DM retinopathy. Following with [facility] Eye care, next appt in February 2023 [...] 5:48 AM EDT): - pt was given [facility] GI number to call to schedule a colonoscopy. Obstructive sleep apnea 05/10/2012 Assessment & Plan (10/25/2023 12:49 PM EDT): -Previously followed by [facility] sleep medicine clinic, last seen in Apr 2021 -Sleep study 01/15/18, which showed mild ELAINE. Recommended AutoCPAP 6-15 cm H2O. If pt has nasal congestion, ipratropium 0.03% before bedtime was recommended -Does not have a CPAP machine currently, prescribed CPAP machine in January 2023. -Currently following with [facility] sleep medicine clinic on 06/29/23. -Sleep study on 07/27/23 did not meet the criteria for ELAINE -Follow up with Sleep medicine clinic provider for further recommendation Assessment & Plan (07/07/2023 3:02 PM EST): -Previously followed by [facility] sleep medicine clinic, last seen in [...] (04/24/2023 5:40 AM EDT): -Previously followed by [facility] sleep medicine clinic, last seen in [...] (02/02/2023 12:12 PM EDT): -Previously followed by [facility] sleep medicine clinic, last seen in [...] EST): - Following with Dr. Azevedo at [facility] Eye care - Following with [facility] - anticipating a surgery Assessment & Plan (02/02/2023 12:19 PM EDT): - Following with Dr. Azevedo Resolved Problems Problem Noted Date Diagnosed Date Resolved Date Continuous opioid dependence 11/16/2014 07/02/2023 Encounters Date Type Department Care Team Description 10/11/2024 1:15 PM EST Office Visit [facility] [address] [place] [phone] Kenna Swift MD Essential hypertension (Primary Dx); Obstructive sleep apnea; Type 2 diabetes mellitus with microalbuminuria, with long-term current use of insulin ([facility]); Mood disorder ([facility]); Chronic pain of both knees 10/11/2024 Orders Only [facility] [address] [place] [address] Kenna Swift MD 10/11/2024 Travel 10/05/[address] [address] Kenna Swift MD Chart Prep 09/28/[address] [address] Jeet Freedman, PharmD Type 2 diabetes mellitus with hyperglycemia, with long-term current use of insulin ([facility]/HCC) 09/26/2024 1:00 PM EST Telemedicine [address] [place] [address] Jeet Freedman, Cate Type 2 diabetes mellitus with hyperglycemia, with long-term current use of insulin (CMS/HCC) (Primary Dx) 09/09/2024 Travel 09/04/2024 Refill [facility] [address] [place] [address] Kenna Swift MD Type 2 diabetes mellitus with hyperglycemia, with long-term current use of insulin (CMS/HCC); Dyslipidemia 09/02/2024 Refill [facility] [address] [place] [address] Kenna Swift MD 09/01/2024 Telephone [facility] [address] [place] [address] Jeet Freedman, PharmD 08/30/2024 Telephone [facility] [address] [place] [address] Jeet Freedman, PharmD 08/30/2024 Telephone [facility] [address] [place] [address] Kenna Swift MD Medication Question 08/29/2024 9:40 AM EST Office Visit [facility] [address] [place] [address] Yunior Bonner MD Dizziness (Primary Dx); Type 2 diabetes mellitus with hyperglycemia, with long-term current use of insulin (CMS/HCC); Fall, initial encounter; Acute post-traumatic headache, not intractable 08/29/2024 Orders Only GENERIC EXTERNAL DATA DEPARTMENT Provider, Generic External Data 08/29/2024 Telephone [facility] [address] [place] [address] Kenna Swift MD rapid responce 08/29/2024 Refill [facility] [address] [place] [address] Jeet Freedman, Cate Type 2 diabetes mellitus with hyperglycemia, with long-term current use of insulin (CMS/HCC) 08/20/2024 Refill [facility] [address] [place] [address] Jeet Freedman, PharmD Type 2 diabetes mellitus with hyperglycemia, with long-term current use of insulin ([facility]) 08/19/2024 Orders Only [facility] [address] [place], [place] [phone] Kenna Swift MD Type 2 diabetes mellitus with hyperglycemia, with long-term current use of insulin ([facility]) (Primary Dx) 08/19/2024 Telephone [facility] [address] [place], [place] [phone] Kenna Swift MD 08/18/2024 Telephone [facility] [address] [place], [place] [phone] Vianca Puentes, pad cutter 08/17/2024 Refill [facility] [address] [place], [place] [phone] Jeet Freedman, PharmD Type 2 diabetes mellitus with hyperglycemia, with long-term current use of insulin ([facility]) 07/21/2024 Telephone [facility] [address] [place], [place] [phone] Kenna Swift MD Appointment Request from Last [...] 12 10/11/2024 1:19 PM EST Oxygen Saturation 98% 08/29/2024 8:58 AM EST room air Inhaled Oxygen Concentration - - Weight 99.1 kg (218 lb 6.6 oz) 10/11/2024 1:19 P M EST Height 175.3 cm (5' 9 ) 10/11/2024 1:19 PM EST Body Mass Index 32.25 10/11/2024 1:19 PM EST Plan of Treatment Upcoming Encounters Date Type Department Care Team (Late st Contact Info) Description 11/11/2024 11:00 AM EDT Medication Management [facility] [address] [place] [address] Jeet Freedman, PharmD [address] [place] [address] Health Maintenance Due Date Last Done Comments CT Colonography 1962 FIT DNA/Cologuard 1960 FIT 1962 FOBT 1960 Sigmoidoscopy 1962 Eye Exam 1972 SDOH Screening 01/23/2024 01/22/2023 Diabetes: Foot Exam 02/21/2024 02/20/2023, 3 COVID-19 Vaccine ( season) 2024 07/02/2023, 02/06/2022, 08/08/2021, Additional history exists Influenza Vaccine (#1) 2024 3, 07/14/2022, 05/17/2021, Additional history exists Tobacco Screening 10/12/2024 10/12/2023 Depression Monitoring (PHQ-9) 04/10/2025 10/11/2024, 10/11/2024 Diabetes: Hemoglobin A1C 04/10/2025 025, 09/09/2024, 10/12/2023, Additional history exists Alcohol/Substance Use Screening 10/11/2025 10/11/2024 Depression Screening 10/11/2025 10/11/2024, 10/11/19 Lipid Panel 10/11/2025 10/11/2024, 06/03/2023, 02/07/2022, Additional history exists DTaP/Tdap/Td Vaccines (4 - [...] 122/74(2024 1:19 PM EST) No Jeet Freedman, PharmD Hemoglobin A1c < 7 Result Component 6.7( 1:22 PM EST) No Jeet Freedman, Cate Procedures Procedure Name Priority Date/Time Associated Diagnosis Comments LIPID PANEL, STANDARD Routine 10/11/2024 2:21 PM EST HEPATIC FUNCTION PANEL Routine 10/11/2024 2:21 PM EST ALBUMIN, RANDOM URINE W/CREATININE Routine 10/11/2024 2:21 PM EST Type 2 diabetes mellitus with microalbuminuria, with long-term current use of insulin (CMS/HCC) POCT GLYCOSYLATED HEMOGLOBIN (HGB A1C) Routine 10/11/2024 1:22 PM EST Type 2 diabetes mellitus with microalbuminuria, with long-term current use of insulin (CMS/[facility]) POCT GLUCOSE Routine 10/11/2024 1:21 PM EST Type 2 diabetes mellitus with microalbuminuria, with long-term current use of insulin (CMS/[facility]) POCT GLYCATED HEMOGLOBIN, TOTAL Routine 09/09/2024 1:54 PM EST Type 2 diabetes mellitus with hyperglycemia, with long-term current use of insulin (CMS/[facility]) HIGH SENSITIVITY TROPONIN I Routine 08/29/2024 3:57 PM EST MR BRAIN WO CONTRAST Routine 08/29/2024 12:[address] HEAD WO CONTRAST Routine 08/29/2024 9 :55 AM EST POCT GLUCOSE Routine 08/29/2024 8:59 AM EST Type 2 diabetes mellitus with hyperglycemia, with long-term current use of insulin ([facility]) HM COLONOSCOPY Routine 09/10/2023 HEPATITIS C AB W/REFL TO HCV RNA, QN, PCR Routine 01/22/2023 11:24 AM EDT Routine screening for STI (sexually transmitted infection) HIV 1/2 ANTIGEN/ANTIBODY, FOURTH GENERATION W/RFL Routine 01/22/2023 11:24 AM EDT Routine screening for STI (sexually transmitted infection) from Last 3 Months or Most Recently Relevant to Health Maintenance Results * (ABNORMAL) Albumin, Random Urine W/Creatinine (10/11/2024 2:21 PM EST) Creatinine, Urine 126.67 mg/dL [facility] Microalbumin Urine 73.0 mg/L [facility] Microalbum Creatinine Ratio Ur 57.6(H) <30 ug/mg cr [facility] Comment:Albumin/Creatinine R atio Reference Ranges: Normal: < 30 ug/mg creatinine Microalbuminuria: 30 - 300 ug/mg creatinineClinical Albuminuria: > 300 ug/mg creatinine Urine 10/11/2024 2:21 PM EST 10/11/2024 4:14 PM EST Knena Swift MD LAB URINE ORDERABLES Final Resul t [facility] [address] [place] [phone] * (ABNORMAL) POCT glycosylated hemoglobin (Hgb A1c) (10/11/2024 1:22 PM EST) Hemoglobin A1C 6.7(A) 4.0 - 6.0 % QC Media Lot # [id number] Lot# Expiration Date Blood Capillary blood specimen / Unknown 10/11/2024 1:22 PM EST Kenna Swift MD POINT OF CARE TEST ENTER/EDIT OR DERABLES Final Result * POCT glucose manually resulted (10/11/2024 1:21 PM EST) Only the most recent of2 resultswithin the time period is included. Glucose Blood, POC 93 60 - 200 mg/dL QC Media Lot # [id number] Lot# Expiration Date 625 Blood Capillary blood specimen / Unknown 10/11/2024 1:21 PM EST Kenna Swift MD POINT OF CARE TEST ENTER/EDIT OR DERABLES Final Result * (ABNORMAL) POCT HGB A1C (09/09/2024 1:54 PM EST) Pathologist [facility] Hemoglobin A1C 7.4(A) 4.0 - 6.0 % QC Media Lot # [id number] Lot# Expiration Date 277 Blood 09/09/2024 1:54 PM EST Kenna Swift MD POINT OF CARE TEST ENTER/EDIT OR DERABLES Final Result * High Sensitivity Troponin I (08/29/2024 3:57 PM EST) Pathologist [facility] TROPONIN I HIGH SENSITIVITY <2.7 <3.5 - 35.0 ng/L [facility] Comment:The [place] high sens itivity Troponin-I results should beused in conjunction with other diagnostic information suchas ECG, clinical observations and information, and patientsymptoms to aid in the diagnosis of [place]. 08/29/2024 3:57 PM EST 08/29/2024 4:00 PM EST us Generic External Data Provider LAB BLOOD ORDERAB LES Final Result [facility] [address] [place] [phone] * MR Brain w/o Contrast (08/29/2024 12:41 PM EST) Anatomical Region Laterality Modality Brain Magnetic Resonan ce 08/29/2024 12:4 1 PM EST Narrative 08/29/2024 4:44 PM EST ? [facility] ?[address] ?[place] [address] ? Magnetic Resonance Report ? Signed ? Patient: Christianne Desir,Sigifredo ?MR#: [id number] ?? [id number] ? : 1960 ?Acct:[id number] ? Age/Sex: 64 / M ?ADM Date: 01/13/25 ? Loc: HO.ED ? Attending Dr: ? Ordering Physician: Evangelista Song MD ?? Date of Service: 08/29/24 ?? Procedure(s): MR head/brain wo con ?? Accession Number(s): [id number] ? cc: Evangelista Song MD; Kenna Swift [...] ? Signed By: ?<Electronically signed by Antoni Clara Sanches MD in OV> ?08/29/24 1641 ? DD/ 1241 ? TD/TT: 08/29/24 1505 ? Electrical Designer: MSM ? Procedure Note Urszula, Image - 08/29/[address] [address] Magnetic Resonance Report Signed Patient: Dorita BrownPorfirio#: [id number] : 2Acct:[id number] Age/Sex: 64 / MADM Date: 08/29/24 Loc: HO.ED Attending Dr: Ordering Physician: Evangelista Song MD Date of Service: 08/29/24 Procedure(s): MR head/brain wo con Accession Number(s): [id number] cc: Evangelista Song MD; Kenna Swift MD [...] 08/29/24 1641 DD/ 1241 TD/TT: 08/29/24 1505 Electrical Designer: [facility] External Provider IMG MRI PROCEDURES Final Result * CT Head w/o Contrast (08/29/2024 9:55 AM EST) Anatomical Region Laterality Modality Head, Neck Computed Tomogra phy 08/29/2024 9:55 AM EST Narrative 08/29/2024 11:03 AM EST ? [facility] ?[address] ?[place] [address] ? CT Scan Report ? Signed ? Patient: Bigio Desir,Sigifredo ?MR#: [id number] ?? [id number] ? : 1960 ?Acct:[id number] ? Age/Sex: 64 / M ?ADM Date: 01/13/25 ? Loc: HO.ED ? Attending Dr: ? Ordering Physician: Evangelista Song MD ?? Date of Service: 08/29/24 ?? Procedure(s): CT head/brain wo IV con ?? Accession Number(s): [id number] ? cc: Evangelista Song MD; Kenna Swift MD ? Report Number: ?? [id number]: Total DLP = ??790.00 mGy-cm ?? EXAMINATION: [...] in OV> ? 08/29/24 1100 ? DD/ 09 ? TD/TT: 08/29/24 1010 ? Electrical Designer: ? Procedure Note Donotuseinterpreter, Image - 08/29/[address] [address] [address] Scan Report Signed Patient: Elie Brown#: [id number] : 2Acct:[id number] Age/Sex: 64 / MADM Date: 08/29/24 Loc: HO.ED Attending Dr: Ordering Physician: Evangelista Song MD Date of Service: 08/29/24 Procedure(s): CT head/brain wo IV con Accession Number(s): [id number] cc: Evangelista Song MD; Kenna Swift MD Report Number: [id number]: Total DLP = 790.00 mGy-cm EXAMINATION: CT [...] 08/29/24 1100 DD/ 0955 TD/TT: 08/29/24 1010 Electrical Designer: [facility] External Provider IMG CT PROCEDURES Edited Result - Final * (ABNORMAL) Colonoscopy (09/10/2023) Colonoscopy Abnormal(A ) Normal Historical Provider HEALTH MAINTENANCE Final Result * Hepatitis C Antibody with Reflex to HCV, RNA, Quantitative, Real-Time PCR (01/22/2023 11:24 AM EDT) Hepatitis C Antibody NON-REACT LUCERO NON-REACT LUCERO [facility] Index 0.04 <1.00 [facility] Comment: HCV antibody was non-reactive. There is no laboratory evidence of HCV infection. In most cases, no further action is required. However, if recent HCV exposure is suspected, a test for HCV RNA (test code 12703) is suggested. For additional information please refer to http://education.THE MELT/faq/SVL93n8 (This link is being provided for informational/ educational purposes only.) Blood Venous blood specimen / Unknown 01/22/2023 11:24 AM EDT 01/22/2023 11:25 AM EDT Narrative [facility] - 01/23/2023 6:18 PM EDT FASTING:NO FASTING: NO Kenna Swift MD LAB BLOOD ORDERABLES Final Resul t [facility] [address], [place] [address] [facility] [address] [place] [address] * HIV-1/2 Antigen and Antibodies, Fourth Generation, with Reflexes (01/22/2023 11:24 AM EDT) HIV Antigen/Antibody, 4th Generation NON-REAC TIVE NON-REAC TIVE [facility] [place] [facility] Comment: HIV-1 antigen and HIV-1/HIV-2 antibodies were [...] ?? For additional information please refer to http://education.THE MELT/faq/EAH340 (This link is being provided for informational/ educational purposes only.) The performance of this assay has not been clinically validated in patients less than 2 years old. Blood Venous blood specimen / Unknown 01/22/2023 11:24 AM EDT 01/22/2023 11:25 AM EDT Narrative [facility] - 01/23/2023 6:18 PM EDT FASTING:NO FASTING: NO us Kenna Swift MD LAB BLOOD ORDERABLES Final Resul t [facility] [address], [place] [address] [employer] [facility] [address] [place] [address] from Last 3 Months or Most Recently Relevant to Health Maintenance [place] [address] [place] [address] - [employer] Care Teams Power Press Operator Relationship Specialty Start Date End Date Kenna Swift MD [address] [place] [phone] PCP - General Family Medicine 02/06/14 Jeet Freedman, EmilyD [address] [place] [phone] Pharmacist Internal Medicine 02/23/23
--- OUTSIDE RECORDS SUMMARY | 2024-10-11 17:57 | XMS_ITS | Encounter Summary ---
Author Organization [employer] Address [address] [facility] 7t [place] [address] Care Team Providers Care Handy Worker Name Role Phone Kenna Swift MD Primary Care Provider [phone] Jeet Freedman PharmD Unavailable [phone] Reason for Visit * Reason Comments Med Refill Encounter Details Date Type Department Care Team (Late st Contact Info) Description 09/28/2024 Refill [facility] [address] [place], [place] [phone] Jeet Freedman, PharmD [address] [place], [place] [phone] Type 2 diabetes mellitus with hyperglycemia, with long-term current use of insulin ([facility]) Social History Tobacco Use Types Packs/Day Years [...] Description 11/11/2024 11:00 AM EDT Medication Management [facility] [address] [place] [address] Jeet Freedman PharmD [address] [place] [address] documented as of this encounter Goals Goal [...] of insulin ([facility]) documented in this encounter Additional Health Concerns Assessment Noted Time PHQ-9 Depression Total Score: 17 023 5:26 PM EST documented as of this encounter Care Teams Handy Worker Relationship Specialty Start Date End Date Kenna Swift MD [address] [place] [address] PCP - General Family Medicine 02/06/14 Jeet Freedman PharmD [address] [place] [address] Pharmacist Internal Medicine 02/23/23 documented as of this encounter
--- OUTSIDE RECORDS SUMMARY | 2024-10-11 17:57 | XMS_ITS | Encounter Summary ---
Author Organization [employer] Address [address] [facility] [address] [place] [address] Care Team Providers Care Adult Family Home Program Manager Name Role Phone Kenna Swift MD Primary Care Provider [phone] Jeet Freedman PharmD Unavailable [phone] Reason for Visit * Reason Onset Date Comments Medication Question 08/30/2024 Encounter Details Date Type Department Care Team ([facility] st Contact Info) Description 08/30/2024 Telephone [facility] [address] [place], [place] [phone] Kenna Swift MD [address] [place], [place] [phone] Medication Question Social History Tobacco Use Types [...] Description 11/11/2024 11:00 AM EDT Medication Management [facility] [address] [place] [address] Jeet Freedman PharmD [address] [place] [address] documented as of this encounter Goals Goal [...] documented as of this encounter Care Teams Adult Family Home Program Manager Relationship Specialty Start Date End Date Kenna Swift MD [address] [place] [address] PCP - General Family Medicine 02/06/14 Jeet Freedman, EmilyD [address] [place] [phone] Pharmacist Internal Medicine 02/23/23 documented as of this encounter
--- OUTSIDE RECORDS SUMMARY | 2024-10-11 17:57 | XMS_ITS | Encounter Summary ---
Author Organization [facility] Address [address] [facility] 7t [place] [address] Care Team Providers Care Campaign Marketing Manager Name Role Phone Kenna Swift MD Primary Care Provider [phone] Jeet Freedman PharmD Unavailable [phone] Reason for Visit * Reason Comments Med Refill Encounter Details Date Type Department Care Team (Late st Contact Info) Description 08/29/2024 Refill [facility] [address] [place], [place] [phone] Jeet Freedman, PharmD [address] [place], [place] [phone] Type 2 diabetes mellitus with hyperglycemia, with long-term current use of insulin ([facility]) Social History Tobacco Use Types Packs/Day [...] Description 11/11/2024 11:00 AM EDT Medication Management [facility] [address] [place] [address] Jeet Freedman PharmD [address] [place] [address] documented as of this encounter Goals Goal [...] hyperglycemia, with long-term current use of insulin ([facility]) documented in this encounter Additional Health Concerns Assessment Noted Time PHQ-9 Depression Total Score: 17 023 5:26 PM EST documented as of this encounter Care Teams Campaign Marketing Manager Relationship Specialty Start Date End Date Kenna Swift MD [address] [place] [address] PCP - General Family Medicine 02/06/14 Jeet Freedman PharmD [address] [place] [address] Pharmacist Internal Medicine 02/23/23 documented as of this encounter
--- OUTSIDE RECORDS SUMMARY | 2024-10-11 17:57 | XMS_ITS | Encounter Summary ---
Author Organization [employer] Address [address] [facility] 7t [place] [address] Care Team Providers Care Set Up Person Name Role Phone Kenna Swift MD Primary Care Provider [phone] Jeet Freedman PharmD Unavailable [phone] Encounter Details Date Type Department Care Team (Late st Contact Info) Description 10/11/2024 Orders Only [facility] [address] [place], [place] [phone] Kenna Swift MD [address] [place], [place] [phone] Social History Tobacco Use Types Packs/Day Years [...] with others, in a hotel, in a half-way, living outside on the street, on a [...] Description 11/11/2024 11:00 AM EDT Medication Management [facility] [address] [place] [address] Jeet Freedman, PharmD [address] [place] [address] Pending Results Name Type Priority Associated Diagnoses Date /Time Hepatic Function Panel Lab Routine 2:21 PM EST Lipid Panel, Standard Lab Routine 2:21 PM EST documented as of this encounter Goals Goal Patient Goal Type Associated Problems Recent Progress Patient-Stated? Author Blood Pressure < 140/90 Blood Pressure 122/74(2024 1:19 PM EST) No Jeet Freedman, PharmD Hemoglobin A1c < 7 Result Component 6.7( 1:22 PM EST) No Jeet Freedman PharmD documented as of this encounter Procedures Procedure Name Priority Date/Time Associated Diagnosis Comments HEPATIC FUNCTION PANEL Routine 10/11/2024 2:21 PM EST LIPID PANEL, STANDARD Routine 10/11/2024 2:21 PM EST documented in this encounter Visit Diagnoses Not on filedocumented in this encounter Additional Health Concerns Assessment Noted Time PHQ-9 Depression Total Score: 13 025 1:58 PM EST documented as of this encounter Care Teams Set Up Person Relationship Specialty Start Date End Date Kenna Swift MD [address] [place] [address] PCP - General Family Medicine 02/06/14 Jeet Freedman, EmilyD [address] [place] [address] Pharmacist Internal Medicine 02/23/23 documented as of this encounter
--- OUTSIDE RECORDS SUMMARY | 2024-10-11 17:57 | XMS_ITS | Encounter Summary ---
Author Organization [employer] Address 75 [facility] 7t [place] [address] Care Team Providers Care Land Resource Specialist Name Role Phone Kenna Swift MD Primary Care Provider [phone] Jeet Freedman PharmD Unavailable [phone] Encounter Details Date Type Department Care Team (Late st Contact Info) Description 09/26/2024 1:00 PM EST Telemedicine [facility] MEDICINE [address] [place], [place] [phone] Jeet Freedman, PharmD [address] [place] [address] Type 2 diabetes mellitus with hyperglycemia, with long-term current use of insulin ([facility]) (Primary Dx) Social History Tobacco [...] 3 plus CGM. Today's Visit: Patient contacted [facility] pharmacist to report frequent hypoglycemia since [...] Description 11/11/2024 11:00 AM EDT Medication Management [facility] [address] [place] [address] Jeet Freedman PharmD [address] [place] [address] documented as of this encounter Goals Goal [...] of insulin ([facility])- Primary documented in this encounter Additional Health Concerns Assessment Noted Time PHQ-9 Depression Total Score: 17 08/20/ 023 5:26 PM EST documented as of this encounter Care Teams Land Resource Specialist Relationship Specialty Start Date End Date Kenna Swift MD [address] [place] [address] PCP - General Family Medicine 02/06/14 Jeet Freedman, EmilyD [address] [place] [address] Pharmacist Internal Medicine 02/23/23 documented as of this encounter
--- OUTSIDE RECORDS SUMMARY | 2024-10-11 17:57 | XMS_ITS | Encounter Summary ---
Author Organization [employer] Address 75 [facility] 7t [place] [address] Care Team Providers Care Movement Assembler Name Role Phone Kenna Swift MD Primary Care Provider [phone] Jeet Freedman PharmD Unavailable [phone] Encounter Details Date Type Department Care Team (Late Contact Info) Description 09/08/2022 Orders Only [facility] MEDICINE [address] [place] [phone] Amanda Metzger LPN Social History Tobacco [...] Medication Management [facility]INE [address] [place] [address] Jeet Freedman PharmD [address] [place] [address] documented as of this encounter Visit Diagnoses Not on filedocumented in this encounter Additional Health Concerns Assessment Noted Time PHQ-9 Depression Total Score: 17 023 5:26 PM EST documented as of this encounter Care Teams Movement Assembler Relationship Specialty Start Date End Date Kenna Swift MD [address] [place] [phone] PCP - General Family Medicine 02/06/14 Jeet Freedman, PharmD [address] [place] [address] Pharmacist Internal Medicine 02/23/23 documented as of this encounter
[2024-10-11 18:24] LABS: Reflex LDLD? No
== END 2024-10-11 14:20 | disposition home or self-care (01) ==
LOC: HO.HHCL 14:19
PROVIDERS: Visit Provider Family Medicine
DX: E11.29 Type 2 diabetes mellitus with other diabetic kidney complication (principal); E11.65 Type 2 diabetes mellitus with hyperglycemia; Z79.4 Long term (current) use of insulin; R80.9 Proteinuria, unspecified
CPT/HCPCS: 36415; 80061; 80076; 82043; 82570

== ENCOUNTER 2024-12-30 12:20 | Outpatient (AMB) | payer OTHER, SELFPAY ==
--- OUTSIDE RECORDS SUMMARY | 2024-12-30 12:22 | XMS_ITS | Encounter Summary ---
Author Organization [employer] Address 75 [facility] 7t [place] [address] Care Team Providers Care Chucking Machine Operator Name Role Phone Kenna Swift MD Primary Care Provider [phone] Jeet Freedman PharmD Unavailable [phone] Reason for Referral * Consultation (Routine) - Pending Review Specialty Diagnoses / Procedures Referred By Roland hinojosa Referred To Contact Pharmacy Diagnoses Type 2 diabetes mellitus with hyperglycemia, with long-term current use of insulin (CMS/HCC) Kenna Swift MD [address] [place] [address] Phone: tel: fax: Referral ID Status Reason Start Date Expiration Date Visits Requested Visits Authorized [id number] Pending Review Consult and Treat 08/19/2024 08/19/2025 6 6 Encounter Details Date Type Department Care Team (Late st Contact Info) Description 08/19/[address] [facility] MED[facility]INE [address] [place] [phone] Kenna Swift MD [address] [place], [place] [phone] Type 2 diabetes mellitus with hyperglycemia, with [...] Care Team (Late st Contact Info) Description 01/02/2025 1:30 PM EDT Office Visit [facility] D[facility] [address] [place] [address] Mesfin Castellano, TONYA [address] [place] [address] 01/17/2025 1:30 PM EDT Office Visit [facility] MED[facility]INE [address] [place] [address] Kenna Swift MD [address] [place] [address] 01/25/2025 2:45 PM EDT Office Visit [facility] OPTOMET[facility] [address] [place] [address] Glory Payton, OD [address] [place] [address] 03/10/2025 11:00 AM EDT Medication Management [facility] [address] [place] [address] Jeet Freedman PharmD [address] [place] [address] Scheduled Referrals Name Type Priority Associated Diagnoses Orde r Schedule Referral to Pharmacy CDTM Outpatient Referral Routine Type 2 diabetes mellitus with hyperglycemia, with long-term current use of insulin ([facility]) Ordered: 08/19/2024 documented as of this encounter Goals Goal Patient Goal Type Associated Problems Recent Progress Patient-Stated? Author Blood Pressure < 140/90 Blood Pressure 116/64(2024 9:41 AM EDT) No Jeet Freedman PharmD Hemoglobin A1c < [...] EST Narrative 08/29/2024 4:44 PM EST ? [facility] ?[address] ?[place] [address] ? Magnetic Resonance Report ? Signed ? Patient: Bigio Desir,Sigifredo ?MR#: [id number] ?? [id number] ? : 1960 ?Acct:[id number] ? Age/Sex: 64 / M ?ADM Date: /13/25 ? Loc: HO.ED ? Attending Dr: ? Ordering Physician: Evangelista Song MD ?? Date of Service: 08/29/24 ?? Procedure(s): MR head/brain wo con ?? Accession Number(s): [id number] ? cc: Evangelista Song MD; Kenna Swift [...] 04:41 PM EST RP ? Dictated By: ?Verónica,Antoni S MD ? Signed By: ?<Electronically signed by Antoni S MD Verónica in OV> ?08/29/24 1641 ? DD/ 1241 ? TD/TT: 08/29/24 1505 ? Discharge Door Operator: MSM ? Procedure Note Tanya Seaman - 08/29/[address] [address] Magnetic Resonance Report Signed Patient: Dorita BrownPorfirio#: [id number] : 2Acct:[id number] Age/Sex: 64 / MADM Date: 08/29/24 Loc: HO.ED Attending Dr: Ordering Physician: Evangelista Song MD Date of Service: 08/29/24 Procedure(s): MR head/brain wo con Accession Number(s): [id number] cc: Evangelista Song MD; Kenna Swift MD [...] 08/29/24 1641 DD/ 1241 TD/TT: 08/29/24 1505 Discharge Door Operator: [facility] External Provider IMG MRI PROCEDURES Final Result * CT Head w/o Contrast (08/29/2024 9:55 AM EST) Anatomical Region Laterality Modality Head, Neck Computed Tomogra phy 08/29/2024 9:55 AM EST Narrative 08/29/2024 11:03 AM EST ? [place] [facility] ?[address] ?[place] [address] ? CT Scan Report ? Signed ? Patient: Bigio Desir,Sigifredo ?MR#: [id number] ?? [id number] ? : 1960 ?Acct:[id number] ? Age/Sex: 64 / M ?ADM Date: 08/29/24 ? Loc: HO.ED ? Attending Dr: ? Ordering Physician: Evangelista Song MD ?? Date of Service: 08/29/24 ?? Procedure(s): CT head/brain wo IV con ?? Accession Number(s): [id number] ? cc: Evangelista Song MD; Kenna Swift MD ? Report Number: ?? [id number]: Total DLP = ??790.00 mGy-cm ?? EXAMINATION: [...] DD/ 0955 ? TD/TT: 08/29/24 1010 ? Discharge Door Operator: ? Procedure Note Urszula, Image - 08/29/[address] [address] [address] Scan Report Signed Patient: Elie Brown#: [id number] : 1960cct:[id number] Age/Sex: 64 / MADM Date: 08/29/24 Loc: HO.ED Attending Dr: Ordering Physician: Evangelista Song MD Date of Service: 08/29/24 Procedure(s): CT head/brain wo IV con Accession Number(s): [id number] cc: Evangelista Song MD; Kenna Swift MD Report Number: [id number]: Total DLP = 790.00 mGy-cm EXAMINATION: CT [...] Cleveland Downs MD 08/29/2024 11:00 AM EST RP Dictated By: Cleveland Grayson MD Signed By: <Electronically signed by Cleveland Puentes MDin OV> 08/29/24 1100 DD/ 0955 TD/TT: 08/29/24 1010 Discharge Door Operator: [facility] External Provider IMG CT PROCEDURES Edited Result - Final documented in this encounter Visit Diagnoses Diagnosis Type 2 diabetes mellitus with hyperglycemia, with long-term current use of insulin ([facility])- Primary documented in this encounter Additional Health Concerns Assessment Noted Time PHQ-9 Depression Total Score: 17 023 5:26 PM EST documented as of this encounter Care Teams Chucking Machine Operator Relationship Specialty Start Date End Date Kenna Swift MD [address] [place] [address] PCP - General Family Medicine 02/06/14 Jeet Freedman PharmD [address] [place] [address] Pharmacist Internal Medicine 02/23/23 documented as of this encounter
--- OUTSIDE RECORDS SUMMARY | 2024-12-30 12:22 | XMS_ITS | Encounter Summary ---
Author Organization [employer] Address 75 [facility] 7t [place] [address] Care Team Providers Care Homicide Squad Sergeant Name Role Phone Kenna Swift MD Primary Care Provider [phone] Jeet Freedman PharmD Unavailable [phone] Encounter Details Date Type Department Care Team (Late Contact Info) Description 09/08/2022 Orders Only [facility]INE [address] [place], [place] [phone] Amanda Metzger LPN Social History Tobacco Use [...] Description 01/02/2025 1:30 PM EDT Office Visit [facility]ULT D[facility] [address] [place], [place] [phone] Mesfin Castellano, DMD [address] [place] [address] 01/17/2025 1:30 PM EDT Office Visit [facility] [address] [place] [address] Kenna Swift MD [address] [place] [address] 01/25/2025 2:45 PM EDT Office Visit [facility] OPTOMETRY [address] [place] [address] TarGlory ronquillo, OD [address] [place] [address] 03/10/2025 11:00 AM EDT Medication Management [facility] [address] [place] [address] Jeet Freedman, PharmRebecca [address] [place] [address] documented as of this encounter Visit Diagnoses Not on filedocumented in this encounter Additional Health Concerns Assessment Noted Time PHQ-9 Depression Total Score: 17 023 5:26 PM EST documented as of this encounter Care Teams Homicide Squad Sergeant Relationship Specialty Start Date End Date Kenna Swift MD [address] [place] [address] PCP - General Family Medicine 02/06/14 Jeet Freedman, PharmD [address] [place] [address] Pharmacist Internal Medicine 02/23/23 documented as of this encounter
--- OUTSIDE RECORDS SUMMARY | 2024-12-30 12:22 | XMS_ITS | Encounter Summary ---
Author Organization [employer] Address 75 [facility] 7t [place] [address] Care Team Providers Care Microphone Operator Name Role Phone Kenna Swift MD Primary Care Provider [phone] Jeet Freedman PharmD Unavailable [phone] Reason for Visit * Reason Comments Med Refill Encounter Details Date Type Department Care Team (Late st Contact Info) Description 08/29/2024 Refill [facility] MED[facility]INE [address] [place], [place] [phone] Jeet Freedman, PharmD [address] [place], [place] [phone] Type 2 diabetes mellitus with hyperglycemia, with long-term current use of insulin ([facility]) Social History Tobacco Use Types [...] with others, in a hotel, in a custodial, living outside on the street, on a [...] Description 01/02/2025 1:30 PM EDT Office Visit [facility] ADULT D[facility] [address] [place] [address] Mesfin Castellano, TONYA [address] [place] [address] 01/17/2025 1:30 PM EDT Office Visit [facility] MEDICINE [address] [place] [phone] Kenna Swift MD [address] [place] [address] 01/25/2025 2:45 PM EDT Office Visit [facility] OPTOMETRY [address] [place] [address] Glory Payton, OD [address] [place] [address] 03/10/2025 11:00 AM EDT Medication Management [facility] MEDICINE [address] [place] [address] Jeet Freedman, PharmD [address] [place] [address] documented as of this encounter Goals Goal [...] with long-term current use of insulin ([facility]) documented in this encounter Additional Health Concerns Assessment Noted Time PHQ-9 Depression Total Score: 17 023 5:26 PM EST documented as of this encounter Care Teams Microphone Operator Relationship Specialty Start Date End Date Kenna Swift MD [address] [place] [address] PCP - General Family Medicine 02/06/14 Jeet Freedman PharmD [address] [place] [phone] Pharmacist Internal Medicine 02/23/23 documented as of this encounter
--- OUTSIDE RECORDS SUMMARY | 2024-12-30 12:22 | XMS_ITS | Clinical Summary ---
Author Organization [employer] Address [address] [facility] [address] [place] [address] Care Team Providers Care Supervisor Clam Bed Name Role Phone Knena Swift MD Primary Care Provider [phone] Jeet Freedmna PharmD Unavailable [phone] Allergies Active Allergy Reactions Criticality Noted Date Comments Lisinopril Swelling 02/23/2023 Tolerates losartan (ARB) Metformin Diarrhea 08/13/2010 Nsaids Unknown 08/13/2010 Rosiglitazone Diarrhea 08/13/2010 Medications buPROPion XL (Wellbutrin XL) 150 MG 24 hr tablet 01/21/20 23 Active sertraline (Zoloft) 100 MG tablet 01/21/20 23 Active Alcohol Swabs (Alcohol Prep) 70 % pads 01/21/20 23 Active ketorolac (Acular) 0.5 % ophthalmic solution PLACE 1 DROP IN THE RIGHT EYE TWICE DAILY 03/04/20 23 Active Blood Pressure Monitor kitIndications:E ssential hypertension Use as directed daily 1 kit 06/19/20 23 Active magnesium oxide (Mag-Ox) 400 (240 Mg) MG tablet TAKE 1 TABLET BY MOUTH EVERY MORNING 06/29/20 23 Active insulin aspart (NovoLOG FLEXPEN) 100 UNIT/ML penIndications:T ype 2 diabetes mellitus with hyperglycemia, with long-term current use of insulin ([facility]) Inject under the skin 3 times daily with meals as directed by sliding scale. (B-200=2 units, 201-250=4 units, 251-300= 6 units, 301-350= 8 units, 351-400= 10 units, >400 12 units and call MD) 15 mL 5 12/18/19 24 Active losartan (Cozaar) 25 MG tabletIndication s:Essential hypertension TAKE 1 TABLET BY MOUTH EVERY MORNING 90 tablet 3 12/30/19 24 Active mirtazapine (Remeron) 15 MG tabletIndication s:Psychophysiolo gical insomnia TAKE 1 TABLET BY MOUTH AT BEDTIME 30 tablet 02/17/20 24 Active gabapentin (Neurontin) 300 MG capsule TAKE 1 CAPSULE BY MOUTH THREE TIMES DAILY IN THE MORNING, EVENING, AND BEDTIME FOR PAIN 90 capsule 02/17/20 24 Active aspirin (Aspirin Low Dose) 81 MG chewable tablet TAKE 1 TABLET BY MOUTH AT BEDTIME (MASTIQUE) 90 tablet 05/02/20 24 Active cyanocobalamin (Vitamin B-12) 1000 MCG tablet TAKE 1 TABLET BY MOUTH EVERY MORNING 90 tablet 05/02/20 24 Active cholecalciferol (Vitamin D-3) 25 MCG tablet TAKE 1 TABLET BY MOUTH EVERY MORNING 90 tablet 05/02/20 24 Active Continuous Glucose Tax Agent (FreeStyle Anayeli 3 [place]) deviceIndication s:Type 2 diabetes mellitus with hyperglycemia, with long-term current use of insulin ([facility]) 1 Device Use as directed. Scan sensor up to 4 times daily 1 each 08/30/19 25 Active Continuous Glucose Sensor (FreeStyle Anayeli 3 Plus Sensor) miscIndications: Type 2 diabetes mellitus with hyperglycemia, with long-term current use of insulin (CMS/[facility]) Apply 1 Device topically every 15 days. 2 each 5 08/30/19 25 Active semaglutide (Ozempic, 1 MG/DOSE,) 4 MG/3ML solution pen-injectorIndi cations:Type 2 diabetes mellitus with hyperglycemia, with long-term current use of insulin (CMS/[facility]) Inject 1 mg under the skin once weekly as directed 3 mL 5 09/01/19 25 Active Blood Glucose Monitoring Suppl (FreeStyle [place] Lite) w/Device kitIndications:T ype 2 diabetes mellitus with hyperglycemia, with long-term current use of insulin (CMS/HCC) Use to test blood sugar 3 times daily 1 kit 09/01/19 25 Active Easy Touch Pen [place] 31G X 8 MM misc USE DIRECTED ONCE DAILY 100 each 3 09/02/19 25 Active Farxiga 10 MGIndications:Ty pe 2 diabetes mellitus with hyperglycemia, with long-term current use of insulin (CMS/HCC) TAKE 1 TABLET BY MOUTH EVERY MORNING 90 tablet 3 09/06/19 25 Active Multiple Vitamin (Multivitamin) tabletIndication s:Type 2 diabetes mellitus with hyperglycemia, with long-term current use of insulin (CMS/HCC) TAKE 1 TABLET BY MOUTH EVERY MORNING WITH FOOD 100 tablet 3 09/06/19 25 Active atorvastatin (Lipitor) 40 MG tabletIndication s:Dyslipidemia TAKE 1 TABLET BY MOUTH AT BEDTIME 90 tablet 3 09/06/19 Active meclizine (Antivert) 25 MG tablet Take 1 tablet by mouth every 8 (eight) hours if needed for dizziness. 08/30/19 Active traZODone (Desyrel) 150 MG tablet Take 150 mg by mouth if needed at bedtime for sleep. 09/19/19 Active TRUEplus Lancets 33G miscIndications: Type 2 diabetes mellitus with hyperglycemia, with long-term current use of insulin ([facility]) TEST BLOOD SUGAR THREE TIMES DAILY 100 each 3 09/29/19 25 Active glucose blood (FreeStyle Precision Leander Test) test stripIndications :Type 2 diabetes mellitus with microalbuminuria , with long-term current use of insulin ([facility]) Use to test blood sugar three times daily as needed for hypoglycemia or sensor failure. 100 each 11 11/12/19 25 026 Active insulin degludec (Tresiba FlexTouch) 100 UNIT/ML injectionIndicat ions:Type 2 diabetes mellitus with hyperglycemia, with long-term current use of insulin ([facility]) INJECT 14 UNITS SUBCUTANEOUSLY ONCE DAILY 15 mL 5 11/12/19 Active Active Problems Problem Noted Date Diagnosed Date Laceration of right hand without foreign body Assessment & Plan (11/08/2024 6:06 PM EDT): Right hand: 4.5cm usuperficial laceration at the hypothenar eminence. Performed simple laceration repair without complication. Gave Tdap as it was out dated. Chronic pain of both knees 10/18/2024 Overview (10/18/2024): - Ordered XR Knee 1-2 Views Left 10/11/24 - Ordered XR Knee 1-2 Views Right 10/11/24 Assessment & Plan (10/18/2024 12:04 PM EST): - fall injury in 2023 - R > L - evaluate with X-ray Type 2 diabetes mellitus wit h microalbuminuria, with long-term current use of insulin 01/22/2023 Assessment & Plan (12/01/2024 12:59 PM EDT): >>ASSESSMENT AND PLAN FOR DIABETES MELLITUS, TYPE 2 ([facility]) WRITTEN ON 02/02/2023 12:23 PM BY KENNA SWIFT MD A1c 12.3 on 07/14/22, trending up -Emphasized [...] eye exam: Non-proliferative DM retinopathy. Following with [facility] Eye care, next appt in February 2023 Last foot exam: 01/22/23 Last microalbumin test: 02/07/22 UACR 251, microalbuminuria Last lipid profile: 02/07/22 TC 203; TG 120; HDL 61; LDL 119 Last dental exam: Immunizations: -Influenza - incomplete for this season -Pneumovax - Mar 2014 -Hep B - Completed Aspirin use: prescribed -f/u in 2 months Assessment & Plan (12/01/2024 12:59 PM EDT): >>ASSESSMENT AND PLAN FOR DIABETES MELLITUS, TYPE 2 ([facility]) WRITTEN ON 04/24/2023 5:43 AM BY KENNA SWIFT MD - last A1C 9.2% -Emphasized the importance [...] eye exam: Non-proliferative DM retinopathy. Following with [facility] Eye care, next appt in February 2023 Last foot exam: 01/22/23 Last microalbumin test: 02/21/23 UACR 309, albuminuria Last lipid profile: 02/21/23 TC 154; HDL 57; LDL 77; TG 116 Last dental exam: Immunizations: -Influenza - incomplete for this season -Pneumovax - Mar 2014 -Hep B - Completed Aspirin use: prescribed -f/u in 2 months Assessment & Plan (12/01/2024 12:59 PM EDT): >>ASSESSMENT AND PLAN FOR DIABETES MELLITUS, TYPE 2 ([facility]) WRITTEN ON 07/07/2023 3:13 PM BY KENNA SWIFT MD - A1C 7.0% on 07/02/23, improved from [...] eye exam: Non-proliferative DM retinopathy. Following with [facility] Eye care, next appt in February 2023 Last foot exam: 01/22/23 Last microalbumin test: 01/22/23 UACR 309, albuminuria Last lipid profile: 01/22/23 TC 154; HDL 57; LDL 77; TG 116 Last dental exam: Immunizations: -Influenza - incomplete for this season -Pneumovax - Mar 2014 -Hep B - Completed Aspirin use: prescribed -f/u in 2 months Assessment & Plan (10/18/2024 12:02 PM EST): - A1C 6.7% on 10/11/24, 6.2% on 10/12/23, trending down 7.0%. Pt has been experiencing hypoglycemic episodes. We will be decreasing his insulin from 18 units to 15 units. - Co-managed with our pharmacist through [facility] -Emphasized the importance of lifestyle modification and SMBG. -Continue Farxiga 10 mg daily -Continue semaglutide 0.5 mg weekly -Decrease Tresiba to 24 units at bedtime -Continue Novolog; consider decreasing -Consider Boost glucose management Treatment Hx -Pt had intolerance to Metformin. -Discontinued glipizide in February 2016 due to hypoglycemia. Last eye exam: Non-proliferative DM retinopathy. Following with [facility] Eye care, next appt in February 2023 Last foot exam: 10/11/24. Pt has decreased sensation bilaterally. Pt did not feel any of the locations that were tested. Last microalbumin test: 10/11/24 Microalbuminuria Last lipid profile: 10/11/24 Last dental exam: Assessment & Plan (12/01/2024 12:59 PM EDT): >>ASSESSMENT AND PLAN FOR TYPE 2 DIABETES MELLITUS WITH MICROALBUMINURIA, WITH LONG-TERM CURRENT USE OF INSULIN ([facility]) WRITTEN ON 10/25/2023 12:54 PM BY KENNA SWIFT MD - A1C 6.2% on 10/12/23, trending down [...] eye exam: Non-proliferative DM retinopathy. Following with [facility] Eye care, next appt in February 2023 Last foot exam: 01/22/23 Last microalbumin test: 01/22/23 UACR 309, albuminuria Last lipid profile: 01/22/23 TC 154; HDL 57; LDL 77; TG 116 Last dental exam: -f/u in 3 months >>ASSESSMENT AND PLAN FOR DIABETES MELLITUS, TYPE 2 ([facility]) WRITTEN ON 10/25/2023 12:53 PM BY KENNA SWIFT MD - A1C 6.2% on 10/12/23, trending down [...] eye exam: Non-proliferative DM retinopathy. Following with [facility] Eye care, next appt in February 2023 Last foot exam: 01/22/23 Last microalbumin test: 01/22/23 UACR 309, albuminuria Last lipid profile: 01/22/23 TC 154; HDL 57; LDL 77; TG 116 Last dental exam: -f/u in 3 months History of angioedema 01/19/2023 Mood disorder 01/19/2023 Assessment & Plan (10/18/2024 12:03 PM EST): previously diagnosed as major depression. -psychiatrist - Dr. Suggs. -therapist - Giselle at [facility]. -continue: Bupropion, Zoloft, Ambien. -previously had therapy animal, dog Assessment & Plan (10/25/2023 12:54 PM EDT): previously diagnosed as major depression. -psychiatrist Sugar Suggs. -therapist - Giselle at [facility]. -continue: Bupropion, Zoloft, Ambien. --patient also has therapeutic animal Assessment & Plan (07/07/2023 3:12 PM EST): previously diagnosed as major depression. -psychiatrist Sugar Suggs. -therapist - Giselle at [facility]. -continue: Bupropion, Zoloft, Ambien. --patient also has therapeutic animal Assessment & Plan (01/22/2023 11:41 AM EDT): previously diagnosed as major depression. -psychiatrist Sugar Suggs. -therapist - Giselle at [facility]. -continue: Bupropion, Zoloft, Ambien. --patient also has therapeutic animal Diabetic peripheral neuropathy 12/13/2015 Assessment & Plan (10/18/2024 11:59 AM EST): Confirmed Peripheral Neuropathy from [facility] in 2017 -Currently on gabapentin 300mg BID -Continue Gabapentin 300 mg TID, discussed about judicious use and about side- effects -Consider evaluating PVD. Assessment & Plan (07/07/2023 3:03 PM EST): Confirmed Peripheral Neuropathy from [facility] in 2017 -Currently on gabapentin 300mg BID -Continue Gabapentin 300 mg TID, discussed about judicious use and about side- effects -Consider evaluating PVD. Assessment & Plan (01/22/2023 11:44 AM EDT): Confirmed Peripheral Neuropathy from [facility] in 2017 -Currently on gabapentin 300mg BID -Continue Gabapentin 300 mg TID, discussed about judicious use and about side- effects -f/u in 1 mo -Consider evaluating PVD. Chronic recurrent major depressive disorder 01/2015 Assessment & Plan (10/25/2023 12:54 PM EDT): previously diagnosed as major depression. -psychiatrist - Dr. Suggs. -therapist - Giselle at [facility]. -continue: Bupropion, Zoloft, Ambien. --patient also has therapeutic animal Assessment & Plan (07/07/2023 3:15 PM EST): previously diagnosed as major depression. -psychiatrist - Dr. Suggs. -therapist - Giselle at [facility]. -continue: Bupropion, Zoloft, Ambien. --patient also has therapeutic animal Essential hypertension 05/22/2015 Assessment & Plan (10/18/2024 12:00 PM EST): -Previously on Lisinopril for Microalbuminuria, discontinued when developed angioedema. -Goal BP <140/90 per JNC-8; < 130/80 per ACC/AHA guideline -BP within acceptable range -Co-managed with our pharmacist through [facility], pt is attending appts. -Continue Losartan 25 mg daily -Previously on Lisinopril for Microalbuminuria, discontinued when developed angioedema. -Continue working on lifestyle modifications -Improve adherence to CPAP for ELAINE -Follow up in 3 mo or sooner prn Assessment & Plan (10/25/2023 12:49 PM EDT): [...] prn Mixed hyperlipidemia 05/22/2015 Assessment & Plan (10/18/2024 12:03 PM EST): Last lipid profile: 01/22/23 TC 154; HDL 57; LDL 77; TG 116 Current medication: Atorvastatin 40 mg at bedtime Continue working on lifestyle modifications. Assessment & Plan (07/07/2023 3:14 PM EST): Last lipid profile: 01/22/23 TC 154; HDL 57; LDL 77; TG 116 Current medication: Atorvastatin 40 mg at bedtime Continue working on lifestyle modifications. Allergic rhinitis 11/16/2014 Chronic back pain 11/16/2014 Tubular adenoma of colon 09/15/2014 Assessment & Plan (10/25/2023 12:50 PM EDT): - 08/28/[address] Wolfe. Poor prep. Recommended to repeat in 5 years Assessment & Plan (04/24/2023 5:48 AM EDT): - pt was given [facility] GI number to call to schedule a colonoscopy. Obstructive sleep apnea 05/10/2012 Assessment & Plan (10/12/2024 10:38 AM EST): -Previously followed by [facility] sleep medicine clinic, last seen in Apr 2021 -Sleep study 01/15/18, which showed mild ELAINE. Recommended AutoCPAP 6-15 cm H2O. If pt has nasal congestion, ipratropium 0.03% before bedtime was recommended -Does not have a CPAP machine currently, prescribed CPAP machine in January 2023. -Currently following with [facility] sleep medicine clinic on 06/29/23. -Sleep study on 07/27/23 did not meet the criteria for ELAINE -Follow up with Sleep medicine clinic provider for further recommendation Assessment & Plan (10/25/2023 12:49 PM EDT): -Previously followed by [facility] sleep medicine clinic, last seen in Apr 2021 -Sleep study 01/15/18, which showed mild ELAINE. Recommended AutoCPAP 6-15 cm H2O. If pt has nasal congestion, ipratropium 0.03% before bedtime was recommended -Does not have a CPAP machine currently, prescribed CPAP machine in January 2023. -Currently following with [facility] sleep medicine clinic on 06/29/23. -Sleep study on 07/27/23 did not meet the criteria for ELAINE -Follow up with Sleep medicine clinic provider for further recommendation Assessment & Plan (07/07/2023 3:02 PM EST): -Previously followed by [facility] sleep medicine clinic, last seen in [...] (04/24/2023 5:40 AM EDT): -Previously followed by [facility] sleep medicine clinic, last seen in [...] (02/02/2023 12:12 PM EDT): -Previously followed by [facility] sleep medicine clinic, last seen in [...] EST): - Following with Dr. Azevedo at [facility] Eye care - Following with [facility] - anticipating a surgery Assessment & Plan (02/02/2023 12:19 PM EDT): - Following with Dr. Azevedo Resolved Problems Problem Noted Date Diagnosed Date Resolved Date Continuous opioid dependence 11/16/2014 07/02/2023 Encounters Date Type Department Care Team Description 12/02/2024 Telephone [facility] MEDICINE [address] [place], [place] [phone] Nicki Toth MA may recall 12/01/2024 Telephone [facility] MEDICINE [address] [place] [id number] Cyn Murphy ANP No Show 11/30/[address] [phone] Kenna Swift MD Chart Prep 11/24/2024 Patient Outreach [facility] CHC MED & PEDS [address] [place], [place] [phone] Kenna Swift MD Pre-visit Planning (SDOH positive, Tobacco screening negative) 11/11/[address] [phone] Vianca Puentes RN Lab Orders; Appointment Request 11/11/2024 Travel 11/08/2024 6:20 PM EDT Office Visit [facility] WALK-IN CENTER [address] [place] [address] [phone] Betty Davis MD Laceration of right hand without foreign body, initial encounter (Primary Dx); Encounter for immunization 11/08/2024 Travel 10/11/2024 1:15 PM EST Office Visit [address] [phone] Kenna Swift MD Essential hypertension (Primary Dx); Obstructive sleep apnea; Type 2 diabetes mellitus with microalbuminuria, with long-term current use of insulin (CMS/HCC); Mood disorder (CMS/HCC); Chronic pain of both knees; Dietary counseling; Exercise counseling; Class 1 obesity due to excess calories with serious comorbidity and body mass index (BMI) of 32.0 to 32.9 in adult; Diabetic peripheral neuropathy (CMS/HCC); Mixed hyperlipidemia 10/11/2024 Orders Only [facility] MEDICINE [address] [place] [address] [phone] Kenna Swift MD 10/11/2024 Travel 10/05/2024 Telephone [facility] MEDICINE [address] [place] [address] [phone] Kenna Swift MD Chart Prep from Last 3 Months Immunizations Immunization Administration Dates Next Due Hep A, Adult [...] tox oid, preservative free, adsorbed 01/01/2018 Tdap 11/08/2024,07/22/2011,01/14/2011 Zoster, Recombinant 08/15/2021,05/17/2021 Social History Tobacco Use [...] with others, in a hotel, in a intermediate, living outside on the street, on a beach, in a car, or in a park 11/24/[address] you li ve. Do you have problems with any of the following? None of the above 11/24/2024 Food Insecurity Answer Date Recorded Within the past 12 months, y ou worried that your food would run out before you got money to buy more: Sometimes True 2024 Within the past 12 months,th e food you bought just didn't last and you didn't have enough money to get more: Sometimes True 11/24/2024 Transportation Answer Date Recorded In the past 12 months, has l ack of transportation kept you from medical appts, meetings, work or from getting things needed for daily living? No 11/24/2024 Utilities Answer Date Recorded In the past 12 months, has t he electric, gas, oil or water company threatened to shut off services in your home? No 11/24/2024 Depression Answer Date Recorded Patient Health Questionnaire-2 Score 3 10/11/2024 Internet Access Answer Date Recorded Internet Access Q1 Yes 11/24/2024 Internet Access Q2 Not on file 11/24/2024 Sex and Gender Information Value Date Recorded Sex Assigned at Male 06/16/2022 10:15 AM EDT Legal Sex Male 10:15 AM EDT Gender Identity Male 06/16/2022 10:15 AM EDT Sexual Orientation Straight 06/16/2022 10 :15 AM EDT Last Filed Vital Signs Vital Sign Reading Time Taken Comments Blood Pressure 116/64 11/11/2024 9:41 AM EDT Pulse 71 11/11/2024 9:41 AM EDT Temperature 36.3 ??C (97.3 ??F) 10/11/2024 1:19 [...] Description 01/02/2025 1:30 PM EDT Office Visit [facility] ADULT DENTAL [address] [place] [address] Mesfin Castellano, DMD [address] [place] [address] 01/17/2025 1:30 PM EDT Office Visit [facility] MEDICINE [address] [place] [phone] Kenna Swift MD [address] [place] [address] 01/25/2025 2:45 PM EDT Office Visit [facility] OPTOMETRY [address] [place] [address] Glory Payton, OD [address] [place] [address] 03/10/2025 11:00 AM EDT Medication Management [facility] MEDICINE [address] [place] [address] Jeet Freedman, PharmD [address] [place] [address] Health Maintenance Due Date Last Done Comments CT Colonography 1962 FIT DNA/Cologuard 1962 FIT 1962 FOBT 1962 Sigmoidoscopy 1962 Eye Exam 1972 Dental X-Ray: Bitewings 10/11/2016 10/10/19 16, 01/23/2015, 11/23/2013 Dental Prophylaxis 04/26/2017 10/23/2016, 0 11/23/2013, 05/16/2013, Additional history exists Dental Oral Exam 05/21/2018 11/18/2017, 04/2017, 10/10/2015, Additional history exists Dental X-Ray: Full Mouth 10/11/2018 10/10/2015 COVID-19 Vaccine ( season) 2024 07/02/2023, 02/06/2022, 08/08/2021, Additional history exists Influenza Vaccine (#1) 2024 , 07/14/2022, 05/17/2021, Additional history exists Diabetes: Hemoglobin A1C 04/10/2025 025, 09/09/2024, 10/12/2023, Additional history exists Alcohol/Substance Use Screening 10/11/2025 10/11/2024 Depression Screening 10/11/2025 10/11/2024, 10/11/19 Diabetes: Foot Exam 10/11/2025 10/11/2024, 10/11/2024, 10/11/2024, Additional history exists Lipid Panel 10/11/2025 10/11/2024, 06/0 03/2023, 02/07/2022, Additional history exists Tobacco Screening 10/18/2025 10/18/2024 SDOH Screening 11/24/2025 11/24/2024 Colonoscopy 09/10/2028 09/10/2023 Colorectal Cancer Screening 09/10/2028 DTaP/Tdap/Td Vaccines (5 - Td or Tdap) 11/08/2034 11/08/2024, 01/01/2018, 07/22/2011, Additional history exists Zoster Vaccines Completed 08/15/2021, 05/17/2021 HIV Screening [...] patient's age to complete this topic Meningococcal B Vaccine Aged Out No l onger eligible based on patient's age to complete this topic Meningococcal Vaccine Aged Out No aundrea luek eligible based on patient's age to complete [...] 1:22 PM EST) No Jeet Freedman PharmD Procedures Procedure Name Priority Date/Time Associated Diagnosis Comments AK SMPL REPAIR SCALP/NECK/AX/GENIT/T RUNK 2.6-7.5CM Routine 11/08/2024 4:45 PM EDT Laceration of right hand without foreign body, initial encounter LIPID PANEL, STANDARD Routine 10/11/2024 2:21 PM EST HEPATIC FUNCTION PANEL Routine 10/11/2024 2:21 PM EST ALBUMIN, RANDOM URINE W/CREATININE Routine 10/11/2024 2:21 PM EST Type 2 diabetes mellitus with microalbuminuria, with long-term current use of insulin (CMS/HCC) POCT GLYCOSYLATED HEMOGLOBIN (HGB A1C) Routine 10/11/2024 1:22 PM EST Type 2 diabetes mellitus with microalbuminuria, with long-term current use of insulin (CMS/HCC) POCT GLUCOSE Routine 10/11/2024 1:21 PM EST Type 2 diabetes mellitus with microalbuminuria, with long-term current use of insulin (CMS/HCC) HM COLONOSCOPY Routine 09/10/2023 HEPATITIS C AB W/REFL TO HCV RNA, QN, PCR Routine 01/22/2023 11:24 AM EDT Routine screening for STI (sexually transmitted infection) HIV 1/2 ANTIGEN/ANTIBODY, FOURTH GENERATION W/RFL Routine 01/22/2023 11:24 AM EDT Routine screening for STI (sexually transmitted infection) PERIODIC ORAL EVALUATION - ESTABLISHED PATIENT Routine 11/18/2017 12:00 AM EDT PROPHYLAXIS - ADULT Routine 10/23/2016 1 2:00 AM EST INTRAORAL - COMPLETE SERIES OF RADIOGRAPHIC IMAGES Routine 10/10/2015 12:00 AM EST from Last 3 Months or Most Recently Relevant to Health Maintenance Results * AK SMPL REPAIR SCALP/NECK/AX/GENIT/TRUNK 2.6-7.5CM (11/08/2024 4:45 PM EDT) Narrative Betty Davis MD - 11/08/2024 4:45 PM EDT Betty Davis MD ? 11/08/2024 ??6:44 PM Laceration Repair Date/Time: 11/08/2024 4:45 PM Performed by: Betty Davis MD Authorized by: Betty Davis MD ?? Consent: ??Consent obtained: ??Verbal ??Consent given by: ??Patient ??Risks, benefits, and alternatives were discussed: yes ?Risks discussed: ??Infection and pain ??Alternatives discussed: ??No treatment [place] protocol: ??Procedure explained and questions answered to patient or proxy's satisfaction: yes ?Immediately prior to procedure, a time out was called: yes ?Patient identity confirmed: ??Verbally with patient Anesthesia: ??Anesthesia method: ??None Laceration details: ??Location: ??Hand ??Hand location: ??R palm ??Length (cm): ??4.5 Exploration: ??Wound exploration: wound explored through full range of motion ?? Treatment: ??Amount of cleaning: ??Standard ??Irrigation solution: ??Sterile water ??Debridement: ??None ??Undermining: ??None Skin repair: ??Repair method: ??Tissue adhesive Approximation: ??Approximation: ??Close Repair type: ??Repair type: ??Simple Post-procedure details: ??Dressing: ??Sterile dressing ??Procedure completion: ??Tolerated us Betty Davis MD IN CLINIC/BEDSIDE ORDERABL ES Final Result * (ABNORMAL) Albumin, Random Urine W/Creatinine (10/11/2024 2:21 PM EST) Creatinine, Urine 126.67 mg/dL [facility] Microalbumin Urine 73.0 mg/L [facility] Microalbum Creatinine Ratio Ur 57.6(H) <30 ug/mg cr [facility] Comment:Albumin/Creatinine R atio Reference Ranges: Normal: < 30 ug/mg creatinine Microalbuminuria: 30 - 300 ug/mg creatinineClinical Albuminuria: > 300 ug/mg creatinine Urine 10/11/2024 2:21 PM EST 10/11/2024 4:14 PM EST Kenna Swift MD LAB URINE ORDERABLES Final Resul t Performing Organization Address [facility] Co de Phone Number [facility] [address] [place] [address] [phone] * (ABNORMAL) Hepatic Function Panel (10/11/2024 2:21 PM EST) Bilirubin, Total 0.5 0.0 - 1.0 mg/dL [facility] Bilirubin, Direct 0.2 0.0 - 0.5 mg/dL [facility] Aspartate Amino Transferase 31 5 - 37 U/L [facility] Alanine Aminotransferase 21 0 - 40 U/L [facility] Total Protein 8.2(H) 6.5 - 8.0 g/dL [facility] Albumin Level 4.3 3.5 - 5.0 g/dL [facility] Alkaline Phosphatase 82 39 - 117 U/L [facility] 10/11/2024 2:21 PM EST 10/11/2024 4:08 PM EST Kenna Swift MD LAB BLOOD ORDERABLES Final Resul t Performing Organization Address [facility] Co de Phone Number [facility] [address] [place] [address] [phone] Lipid Panel, Standard (10/11/2024 2:21 PM EST) Triglycerides 59 <150 mg/dL [facility] Comment:Desirable Triglyceri de: less than 150 mg/dLBorderline High Triglyceride 150-199 mg/dLHigh Triglyceride: 200-499 mg/dLVery High Triglyceride: greater than or equal to 5OO mg/dL Cholesterol 104 <200 mg/dL [facility] Comment:Desirable Cholestero l: less than 200 mg/dLBorderline High Cholesterol: 200-239 mg/dLHigh Cholesterol: greater than 239 mg/dL LDL Cholesterol Calculated 45 <100 mg/dL [facility] Comment:Desirable LDL: less than 100 mg/dLNear Optimal/Above Optimal LDL: 110- 129 mg/dLBorderline High LDL: 130-159 mg/dLHigh LDL: 160-189 mg/dLVery High LDL: greater than or equal to 190 mg/dL HDL Cholesterol 48 >40 mg/dL [facility] Comment:Desirable HDL: great er than 40 mg/dL Note: This HDL assay may give artificially low results in patients with liver disease. 10/11/2024 2:21 PM EST 10/11/2024 4:08 PM EST Kenna Swift MD LAB BLOOD ORDERABLES Final Resul t [facility] [address] [place] [address] [phone] * (ABNORMAL) POCT glycosylated hemoglobin (Hgb [...] ENTER/EDIT OR DERABLES Final Result * (ABNORMAL) Hm Colonoscopy (09/10/2023) Colonoscopy Abnormal(A ) Normal Historical Provider HEALTH MAINTENANCE Final Result * Hepatitis C Antibody with Reflex to HCV, RNA, Quantitative, Real-Time PCR (01/22/2023 11:24 AM EDT) Pathologist [facility] Hepatitis C Antibody NON-REACT LUCERO NON-REACT LUCERO [employer] Index 0.04 <1.00 [employer] Comment: HCV antibody was non-reactive. There is no laboratory evidence of HCV infection. In most cases, no further action is required. However, if recent HCV exposure is suspected, a test for HCV RNA (test code 31196) is suggested. For additional information please refer to http://education.[employer]/faq/ZFI28x0 (This link is being provided for informational/ educational purposes only.) Blood Venous blood specimen / Unknown 01/22/2023 11:24 AM EDT 01/22/2023 11:25 AM EDT Narrative [facility] - 01/23/2023 6:18 PM EDT FASTING:NO FASTING: NO Kenna Swift MD LAB BLOOD ORDERABLES Final Resul t [facility] [address] [facility], [place] [address] [employer] [facility] [address] [place] [address] * HIV-1/2 Antigen and Antibodies, Fourth Generation, with Reflexes (01/22/2023 11:24 AM EDT) [facility] HIV Antigen/Antibody, 4th Generation NON-REAC TIVE NON-REAC TIVE [employer] [facility] Comment: HIV-1 antigen and HIV-1/HIV-2 antibodies were [...] ?? For additional information please refer to http://education.[employer]/faq/IFK079 (This link is being provided for informational/ educational purposes only.) The performance of this assay has not been clinically validated in patients less than 2 years old. Blood Venous blood specimen / Unknown 01/22/2023 11:24 AM EDT 01/22/2023 11:25 AM EDT Narrative [facility] - 01/23/2023 6:18 PM EDT FASTING:NO FASTING: NO Kenna Swift MD LAB BLOOD ORDERABLES Final Resul t [facility] [address], [place] [address] [employer] [facility] [address] [place] [address] from Last 3 Months or Most Recently Relevant to Health Maintenance Insurance [facility] < 65 [place] [id number] DENTAL - [facility] Care Teams Supervisor Clam Bed Relationship Specialty Start Date End Date Kenna Swift MD [address] [place] [address] PCP - General Family Medicine 02/06/14 Jeet Freedman, EmilyD [address] [place] [address] Pharmacist Internal Medicine 02/23/23
--- OUTSIDE RECORDS SUMMARY | 2024-12-30 12:22 | XMS_ITS | Encounter Summary ---
Author Organization [employer] Address [address] [facility] 7t [place] [address] Care Team Providers Care Hogshead Press Operator Name Role Phone Kenna Swift MD Primary Care Provider [phone] Jeet Freedman PharmD Unavailable [phone] Reason for Visit * Reason Comments Med Refill Encounter Details Date Type Department Care Team (Late st Contact Info) Description 06/17/2023 Refill [facility] MEDICINE [address] [place], [place] [phone] Kenna Swift MD [address] [place] [address] Social History Tobacco Use Types Packs/Day Years [...] Description 01/02/2025 1:30 PM EDT Office Visit [facility] ADULT DENTAL [address] [place] [address] Mesfin Castellano, TONYA [address] [place] [address] 01/17/2025 1:30 PM EDT Office Visit [facility] MEDICINE [address] [place] [address] Kenna Swift MD [address] [place] [address] 01/25/2025 2:45 PM EDT Office Visit [facility] OPTOMETRY [address] [place] [address] Glory Payton, KRIS [address] [place] [address] 03/10/2025 11:00 AM EDT Medication Management [facility] MEDICINE [address] [place] [address] Jeet Freedman, PharmD [address] [place] [address] documented as of this encounter Goals Goal [...] documented as of this encounter Care Teams Hogshead Press Operator Relationship Specialty Start Date End Date Kenna Swift MD [address] [place] [address] PCP - General Family Medicine 02/06/14 Jeet Freedman PharmD [address] [place] [address] Pharmacist Internal Medicine 02/23/23 documented as of this encounter
--- OUTSIDE RECORDS SUMMARY | 2024-12-30 12:22 | XMS_ITS | Encounter Summary ---
Author Organization [employer] Address [address] [facility] 7t [place] [address] Care Team Providers Care Home Service Director Name Role Phone Kenna Swift MD Primary Care Provider [phone] Jeet Freedman PharmD Unavailable [phone] Reason for Visit * Reason Onset Date Comments Medication Question 08/30/2024 Encounter Details Date Type Department Care Team ([facility] st Contact Info) Description 08/30/2024 Telephone [facility] MEDICINE [address] [place], [place] [phone] Kenna Swift MD [address] [place], [place] [phone] Medication Question Social History Tobacco Use Types [...] Description 01/02/2025 1:30 PM EDT Office Visit [facility] ADULT DENTAL [address] [place] [address] Mesfin Castellano, TONYA [address] [place] [address] 01/17/2025 1:30 PM EDT Office Visit [facility] MEDICINE [address] [place] [address] Kenna Swift MD [address] [place] [address] 01/25/2025 2:45 PM EDT Office Visit [facility] OPTOMETRY [address] [place] [address] Glory Payton, OD [address] [place] [address] 03/10/2025 11:00 AM EDT Medication Management [facility] MEDICINE [address] [place] [address] Jeet Freedman PharmD [address] [place] [address] documented as of this encounter Goals Goal [...] documented as of this encounter Care Teams Home Service Director Relationship Specialty Start Date End Date Kenna Swift MD [address] [place] [phone] PCP - General Family Medicine 02/06/14 Jeet Freedman PharmD [address] [place] [phone] Pharmacist Internal Medicine 02/23/23 documented as of this encounter
--- OUTSIDE RECORDS SUMMARY | 2024-12-30 12:22 | XMS_ITS | Encounter Summary ---
Author Organization [employer] Address [address] [facility] 7t [place] [address] Care Team Providers Care Heel Edge Inker Machine Name Role Phone Kenna Swift MD Primary Care Provider Jeet Freedman PharmD Unavailable [phone] Encounter Details Date Type Department Care Team (Late Contact Info) Description 01/20/2023 Orders Only [facility] MEDICINE [address] [place], [place] [phone] Amadna Metzger LPN Social History Tobacco Use Types [...] Description 01/02/2025 1:30 PM EDT Office Visit [facility] ADULT DENTAL [address] [place], [place] [phone] Mesfin Castellano, DMD [address] [place] [address] 01/17/2025 1:30 PM EDT Office Visit [facility] MEDICINE 230 [place] [address] Kenna Swift MD [address] [place] [address] 01/25/2025 2:45 PM EDT Office Visit [facility] OPTOMETRY [address] [place] [address] TarGlory ronquillo, OD [address] [place] [address] 03/10/2025 11:00 AM EDT Medication Management [facility] MEDICINE [address] [place] [address] Jeet Freedman, PharmD [address] [place] [address] documented as of this encounter Visit Diagnoses Not on filedocumented in this encounter Additional Health Concerns Assessment Noted Time PHQ-9 Depression Total Score: 17 023 5:26 PM EST documented as of this encounter Care Teams Heel Edge Inker Machine Relationship Specialty Start Date End Date Kenna Swift MD [address] [place] [phone] PCP - General Family Medicine 02/06/14 Jeet Freedman, PharmD [address] [place] [phone] Pharmacist Internal Medicine 02/23/23 documented as of this encounter
[2024-12-30 12:54] VITALS: BP 138/82; BMI 30.7
--- NOTE | 2024-12-30 12:54 | MHC.OFFVIS ---
Vital Signs 12/30/24 12:54 Height 5 ft 9 in Weight 208 lb 2 oz BMI 30.7 BP 138/82 Blood Pressure Location Lt brachial Position Sitting Intake Visit Reasons: 3 mnts f/u Intake Note: Patient presents follow up ELAINE/RLS. Labs in chart 10/06. still has not received CPAP machine E Marketing Specialist Required: Yes E Marketing Specialist Services: E Marketing Specialist Present E Marketing Specialist Name: Jordon [id number] Information Interpreted: non-clinical & clinical Allergies lisinopril [LISINOPRIL] Allergy (Severe, Verified 12/30/24 13:01) ANAPHYLAXIS shrimp [SHRIMP] Allergy (Severe, Verified 12/30/24 13:01) ANAPHYLAXIS metformin Allergy (Verified 12/30/24 13:01) Diarrhea rosiglitazone Allergy (Verified 12/30/24 13:01) Diarrhea MELON, HONEYDEW Allergy (Severe, Uncoded 09/20/24 10:10) ANAPHYLAXIS HPI Comments Details: 64 y/o Czech speaking male patient presents for follow up of sleep apnea and snoring. education program associate on IPAD. 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 He says he continues to have fragmented sleep with snoring and excessive fatigue daily. He goes to bed at 9pm, tosses and turns all night long until 3am then he wakes up for the day. Some days he gets only 3 hours of sleep and paces the floor. He fell 4 years ago at work and ever since than he has had radiating lower back pain, L>R side, he takes gabapentin 300mg PO TID, which helps with the numbness, tingling and uncomfortable sensation in his legs bilaterally. He has to move his feet constantly at night. He was using his cpap machine and had refreshing sleep, however it is now broken and he is anxious as night due to periodic limb movements which are associated with multiple arousals at night. He has anxiety and his mood is irritable because he wakes up tired daily. His memory is stable, he forgets normal daily things. He sees his counselor once monthly and his psychiatrist every 3 months. He walks daily as he is a diabetic on insulin and motivated to lose weight, he is carefully monitoring his diet. He brought in his sim card today, unfortunately we do not read the sim cards in this office, and he is referred to his sleep company along with the broken machine so they can retrieve the data from his machine, and if possible get a new machine for him, so we are better able to monitor his compliance and apnea. He drinks 2-4 beers on the weekends, doesn't smoke cigarettes or vape. [facility] Medical History Colon cancer screening Diabetes mellitus type 2 in obese Surgical History H/O gastric sleeve Family History Father Coronary artery disease Hypertension Mother Diabetes mellitus Cancer Family/Other Prostate cancer Social History Alcohol intake: current Patient Tobacco Use Status: Never used Tobacco Physical Exam Vital Signs: Last Vital Signs BP 138/82 12/30/24 12:54 BMI result Body Mass Index 30.7 Const General: cooperative, comfortable and no acute distress Orientation/consciousness: patient oriented x3 HEENT Face and sinus: Yes face symmetric Eyes Pupils: Equal, round and reactive pupils present Resp Effort & Inspection: normal respiratory effort and able to speak in complete sentences Neuro General: patient oriented x3 and moves all extremities Cranial nerves: Yes Facial sensation intact/muscles of mastication intact, Yes Equal, round and reactive pupils present, Yes Normal accommodation reflex present and Yes Normal facial strength present Gait exam (Neuro): Normal gait present Motor exam (neuro): 5/5 motor strength present throughout and Normal motor muscle tone present throughout Deep tendon reflexes (DTR's): Right triceps reflex intensity grade: 2+, Left triceps reflex intensity grade: 2+, Rt Biceps (C5, C6): 2+, Left biceps reflex intensity grade: 2+, Right brachioradialis reflex intensity grade: 2+, Left brachioradialis reflex intensity grade: 2+, Right patellar reflex intensity grade: 2+, Left patellar reflex intensity grade: 2+, Right ankle reflex intensity grade: 2+ and Left ankle reflex intensity grade: 2+ Results Reviewed Results Reviewed: 08/[address]/CT head/brain wo IV con IMPRESSION: No acute fracture, bony calvarium. No acute intracranial hemorrhage. Stable brain. Mild Global cerebral atrophy. Jul 2023 PSG AHI was 4 and oxygen desaturation to 88%, with frequent periodic limb movements. Assessment & Plan Assessment & Plan (1) Loud snoring: Code(s): R06.83 - Snoring Category: Medical (2) Excessive daytime sleepiness: Code(s): G47.19 - Other hypersomnia Category: Medical (3) Restless legs syndrome: Code(s): G25.81 - Restless legs syndrome Category: Medical (4) Low back pain radiating to lower extremity: Code(s): M54.50 - Low back pain, unspecified; M79.606 - Pain in leg, unspecified Category: Medical (5) Bilateral radiating leg pain: Code(s): M54.10 - Radiculopathy, site unspecified Category: Medical Plan Excessive daytime sleepiness with Snoring, will evaluate with PSG as he has lost 22 pounds. RLS will evaluate with PSG for PLMD and REM behavior disorder. NCS/ EMG radiating lower back pain leg pain bilateral radiating to lower extremities. Continue magnesium 400mg PO at bedtime. Continue Mirtazapine 15mg at bedtime, Continue Buproprion 150mg PO BID. Reviewed labs with patient. CBC/ CMP B12/TSH/ Iron/ Vitamin D/ Homocystein and MMA. F/U in 4 months Orders: Orders NE electromyogram (EMG) Today M54.10 - Radiculopathy, site unspecified, M54.50 - Low back pain, unspecified, M79.606 - Pain in leg, unspecified NE nerve conduction velocity Today M54.10 - Radiculopathy, site unspecified RT PSG in-lab sleep study 12/30/24 G25.81 - Restless legs syndrome Patient Instructions: Sleep Hygiene provided: set a scheduled bedtime and wake time to help regulate the circadian rhythm and balance the release of pituitary hormones. Sleep in a dark room, temperatures below 68 degrees, and no devices n bed. Limit caffeinated products 6 hours prior to bed, and limit fluids 2-4 hours prior to bed. Gentle night yoga, diffusing essential oils, and playing soft music can be relaxing. A. Take Sim Card to your sleep company to be read, and retrieve data along replacing broken machine. B. PSG submitted for RLS/PLMD, snoring and sleep difficulties, continue taking Gabapentin 300mg PO TID C. Lower back pain radiating to the legs EMG/NCS Coding Level of Care Code Est Pt Level 4 (55451) Diagnoses Loud snoring R06.83 Excessive daytime sleepiness G47.19 Restless legs syndrome G25.81 Low back pain radiating to lower extremity M54.50; M79.606 Bilateral radiating leg pain M54.10 Time Spent (min) 40
== END 2024-12-30 13:40 | disposition home or self-care (01) ==
LOC: HO.HSMS 12:21
PROVIDERS: PCP Family Medicine; Visit Provider Physician Assistant Medical
DX: R06.83 Snoring (principal); G47.19 Other hypersomnia; G25.81 Restless legs syndrome; M54.50 Low back pain, unspecified; M79.606 Pain in leg, unspecified; M54.10 Radiculopathy, site unspecified
CPT/HCPCS: 99214

== ENCOUNTER → 2024-12-30 12:20 | Outpatient (BNVA) | payer OTHER, SELFPAY | PROVIDERS: PCP Family Medicine; Visit Provider Physician Assistant Medical | DX: R06.83 Snoring (principal); G47.19 Other hypersomnia; G25.81 Restless legs syndrome; M54.10 Radiculopathy, site unspecified; M54.50 Low back pain, unspecified; M79.606 Pain in leg, unspecified | CPT/HCPCS: 99212 ==

== ENCOUNTER 2025-03-07 11:14 | Outpatient (REF) | payer OTHER, SELFPAY ==
--- OUTSIDE RECORDS SUMMARY | 2025-03-07 12:31 | XMS_ITS | Encounter Summary ---
Author Organization [employer] Address [address] [facility] 7t [place] [address] Care Team Providers Care Go Cart Mechanic Name Role Phone Kenna Swift MD Primary Care Provider [phone] Jeet Freedman PharmD Unavailable [phone] Reason for Visit * Reason Onset Date Comments Medication Question 08/30/2024 Encounter Details Date Type Department Care Team ([facility] st Contact Info) Description 08/30/[address] [facility] MEDICINE [address] [place], [place] [phone] Kenna Swift MD [address] [place], [place] [phone] Medication Question Social History Tobacco Use Types [...] Care Team (Late st Contact Info) Description 03/10/2025 11:00 AM EDT Medication Management [facility] MEDICINE [address] [place] [phone] Jeet Freedman, PharmD [address] [place] [address] 03/13/2025 11:15 AM EDT Office Visit [facility] MEDICINE [address] [place] [address] Kenna Swift MD [address] [place] [address] 07/27/2025 1:45 PM EST Office Visit [facility] OPTOMETRY [address] [place] [address] Glory Payton, OD [address] [place] [address] documented as of this encounter Goals Goal Patient Goal Type Associated Problems Recent Progress Patient-Stated? Author Blood Pressure < 140/90 Blood Pressure 110/50(2024 10:30 AM EDT) No Jeet Freedman PharmD Hemoglobin A1c < 7 Result Component 5.5( 10:35 AM EDT) No Jeet Freedman PharmD documented as of this encounter Visit Diagnoses Not on filedocumented in this encounter Additional Health Concerns Assessment Noted Time PHQ-9 Depression Total Score: 17 023 5:26 PM EST documented as of this encounter Care Teams Go Cart Mechanic Relationship Specialty Start Date End Date Kenna Swift MD [address] [place] [address] PCP - General Family Medicine 02/06/14 Jeet Freedman PharmD [address] [place] [address] Pharmacist Internal Medicine 02/23/23 documented as of this encounter
[2025-03-07 14:24] LABS: Anion Gap 12 (12-20); Blood Urea Nitrogen 12 mg/dL (9-16); Calcium 9.1 mg/dL (8.4-10.2); Carbon Dioxide 25 mmol/L (22-29); Chloride 109 mmol/L (96-108); Estimated Glomerular Filt Rate > 60; Potassium 4.4 mmol/L (3.3-5.1); Sodium 142 mmol/L (135-145)
[2025-03-07 14:36] LABS: Microalbum/Creatinine Ratio Ur 38.7 ug/mg cr (<30)
[2025-03-10 05:38] LABS: TS Negative Control Passed; TS Panel A 1; TS Panel B 0; TS Positive Control Passed; TSpotTB Negative (Negative)
== END 2025-03-07 11:15 | disposition home or self-care (01) ==
LOC: HO.HHCL 11:14
PROVIDERS: PCP Family Medicine; Visit Provider Family Medicine
DX: Z11.1 Encounter for screening for respiratory tuberculosis (principal); E11.29 Type 2 diabetes mellitus with other diabetic kidney complication; R80.9 Proteinuria, unspecified; E11.65 Type 2 diabetes mellitus with hyperglycemia; Z79.4 Long term (current) use of insulin
CPT/HCPCS: 36415; 80048; 82043; 82570; 86481